=== PATIENT | male | born 1970 | race Caucasian/White ===

== ENCOUNTER 2016-08-01 16:39 | Emergency (ER) | payer OTHER ==
[~2016-08-01] VITALS: Ht 172.7 cm; Wt 100.0 kg
[2016-08-01 16:42] VITALS: BP 121/61; PULSE 71; RESP 15; TEMP 98.2; O2SAT 98
[2016-08-01] MEDS ORDERED: TRAZ100T4 PO (16:59)
[2016-08-01] MEDS ORDERED: DIAZ2TAB PO (16:59)
[2016-08-01] MEDS ORDERED: LISI10TA3 PO (16:59)
[2016-08-01] MEDS ORDERED: ISOS20TA PO (16:59)
[2016-08-01] MEDS ORDERED: METO50TA11 PO (16:59)
[2016-08-01] MEDS ORDERED: GABA300C5 PO (16:59)
[2016-08-01] MEDS ORDERED: QUET1TAB10 PO (16:59)
[2016-08-01] MEDS ORDERED: ATOR1TAB18 PO (16:59)
[2016-08-01] MEDS ORDERED: ZONI100C2 PO (16:59)
[2016-08-01] MEDS ORDERED: PANT40TA3 PO (16:59)
--- NOTE | 2016-08-01 17:56 | PD ---
HPI Chief Complaint: Headache Time Seen by Provider: 17:47 Travel History International Travel<30 days: No Contact w/Intl Traveler<30days: No Traveled to known affect area: No History of Present Illness HPI This patient complains of headache. Headache is a pressure that starts in the right oriental orthodox area and radiates toward the left side. No head injury. No thunderclap onset. Duration is 4 days. He denies any blood thinners or fever or neurologic complaint other than headache. Severity is moderate. No alleviating factors. PFSH Past Medical History Myocardial Infarction: Yes Seizures: Yes Tetanus Vaccination: < 5 Years Past Surgical History Pacemaker: Yes (DEFIB) Social History Alcohol Use: Yes Tobacco Use: Yes Substance Use: No Allergies-Medications (Allergen,Severity, Reaction): Coded Allergies: Codeine (Verified Allergy, Severe, RASH, 08/01/16) Ibuprofen (Verified Allergy, Severe, RASH, 08/01/16) Warfarin (Verified Allergy, Severe, BLEEDING, 08/01/16) Uncoded Allergies: DEPRESSION MEDICATIONS (Adverse Reaction, Severe, VOMITING, 08/01/16) Reported Meds & Prescriptions Reported Meds & Active Scripts Active Reported Pantoprazole (Pantoprazole Sodium) 40 Mg Tab 40 Mg PO DAILY Lisinopril 10 Mg Tab 10 Mg PO DAILY Metoprolol Succinate ER 24 HR (Metoprolol Succinate) 50 Mg Tab 50 Mg PO DAILY Atorvastatin (Atorvastatin Calcium) 80 Mg Tab 80 Mg PO HS Isosorbide Mononitrate 20 Mg Tab 30 Mg PO DAILY Take 2 doses 7 hours apart. Gabapentin 300 Mg Cap 300 Mg PO QID Zonisamide 100 Mg Cap 100 Mg PO QID Quetiapine (Quetiapine Fumarate) 300 Mg Tab 300 Mg PO HS Trazodone (Trazodone HCl) 100 Mg Tab 100 Mg PO HS Diazepam 2 Mg Tab 2 Mg PO BID PRN Review of Systems General / Constitutional: No: Fever Eyes: No: Visual changes HENT: Positive: Headaches Cardiovascular: No: Chest Pain or Discomfort Respiratory: No: Shortness of Breath Gastrointestinal: No: Abdominal Pain Genitourinary: No: Dysuria Musculoskeletal: No: Pain Skin: No Rash Neurologic: Positive: Headache, No: Weakness Psychiatric: No: Depression Endocrine: No: Polydipsia Hematologic/Lymphatic: No: Easy Bruising Physical Exam Narrative GENERAL: Well-nourished, well-developed patient with right sided head pressure. SKIN: Focused skin assessment reveals no rash and nodules. Skin is Warm and dry. HEAD: Atraumatic. Normocephalic. No meningeal signs EYES: Pupils equal and round. No scleral icterus. No injection or drainage. ENT: No nasal bleeding or discharge. Mucous membranes pink and moist. NECK: Trachea midline. No JVD. CARDIOVASCULAR: Regular rate and rhythm. No murmur appreciated. RESPIRATORY: No accessory muscle use. Clear to auscultation. Breath sounds equal bilaterally. GASTROINTESTINAL: Abdomen soft, non-tender, nondistended. Hepatic and splenic margins not palpable. MUSCULOSKELETAL: No obvious deformities. No clubbing. No cyanosis. No edema. NEUROLOGICAL: Awake and alert. No obvious cranial nerve deficits. Motor grossly within normal limits. Normal speech. PSYCHIATRIC: Appropriate mood and affect; insight and judgment normal. Data Data Last Documented VS Vital Signs Date Time Temp Pulse Resp B/P Pulse Ox O2 Delivery O2 Flow Rate FiO2 08/01/16 16:42 98.2 71 15 121/61 98 Orders Oxycodone-Acetamin 5-325 Mg (Percocet (08/01/16 18:00) Ct Brain W/O Iv Contrast(Rout) (08/01/16 ) [facility] Medical Decision Making Medical Screen Exam Complete: Yes Emergency Medical Condition: Yes Medical Record Reviewed: Yes Differential Diagnosis Differential diagnosis includes migraine, tension headache, cluster headache, meningitis. Narrative Course I have reviewed the patient's electronic medical record. Patient is is neurologically intact without meningeal signs. Presentation not consistent with subarachnoid hemorrhage. Brain CT is negative Gave him 2 pain pills Patient will call his primary physician Thursday for follow-up. I wrote him some Fioricet for symptom relief. Diagnosis Primary Impression: Headache Qualified Code: R51 - Acute nonintractable headache, unspecified headache type Additional Instructions: The patient was advised to follow up with their physician and return if they worsen. Med/Other Pt SpecificInfo: Prescription(s) given Scripts Bfttfktbrj-Qdlnuemmwwbey-Qqusqmhx (Fioricet)50-300-40 Mg Cap1 Cap PO Q4H PRN ( HEADACHE) #20 CAP Ref 0 Prov:Serge Oshea MD 08/01/16 Disposition: DISCHARGE HOME Condition: Stable Serge Oshea MD Aug 01, 2016 17:56
[2016-08-01] MEDS ORDERED: oxyCODONE/ACETAMINOPHEN 5 MG/325 MG TAB PO ONE (18:00)
--- NOTE | 2016-08-01 19:51 | RADRPT ---
EXAM DATE/TIME: 08/01/2016 19:40 [facility] COMPARISON: No previous studies available for comparison. INDICATIONS : Cephalgia; right latter day for three days. RADIATION DOSE: 54.70 CTDIvol (mGy) MEDICAL HISTORY : Seizures. SURGICAL HISTORY : Pacemaker. ENCOUNTER: Initial ACUITY: 1 day PAIN SCALE: 9/10 LOCATION: Right cranial TECHNIQUE: Multiple contiguous axial images were obtained of the head. Using automated exposure control and adj ustment of the mA and/or kV according to patient size, radiation dose was kept as low as reasonably a chievable to obtain optimal diagnostic quality images. FINDINGS: CEREBRUM: The ventricles are normal for age. No evidence of midline shift, mass lesion, hemorrhage or acute in farction. Cavum septum pellucidum. No extra-axial fluid collections are seen. POSTERIOR FOSSA: The cerebellum and brainstem are intact. The 4th ventricle is midline. The cerebellopontine angle i s unremarkable. EXTRACRANIAL: The visualized portion of the orbits is intact. SKULL: The calvaria is intact. No evidence of skull fracture. CONCLUSION: No acute intracranial disease. Ion Vicente MD on August 01, 2016 at 19:49 Board Certified Radiologist. This report was verified electronically.
[2016-08-01] MEDS ORDERED: BUTA1CAP PO (20:33)
== END 2016-08-01 20:43 | disposition home or self-care (01) ==
LOC: NEPD 16:39
DX: R51 Headache (principal)
CPT/HCPCS: 70450

== ENCOUNTER 2016-10-24 06:29 | Day surgery (SDC) | payer OTHER ==
[~2016-10-24] VITALS: Ht 172.7 cm; Wt 100.5 kg
[~2016-10-24 06:29] MED LIST: ATOR1TAB18 PO; BUTA1CAP PO; DIAZ2TAB PO; GABA300C5 PO; ISOS20TA PO; LISI10TA3 PO; METO50TA11 PO; PANT40TA3 PO; QUET1TAB10 PO; TRAZ100T4 PO; ZONI100C2 PO
[2016-10-24] MEDS ORDERED: NS 1000P @30 MLS/HR (KVO) IV SCH (07:00)
[2016-10-24 07:22] VITALS: BP 137/83; PULSE 66; RESP 17; TEMP 97.9; O2SAT 95
[2016-10-24] MEDS ORDERED: diphenhydrAMINE HCL 50 MG CAP PO SCH (07:30)
[2016-10-24] MEDS ORDERED: ASPI81CH37 CHEW (07:31)
[2016-10-24 07:35] LABS: AUTOMATED NEUTROPHIL # 4.9 TH/MM3 (1.8-7.7); BASOPHIL # 0.1 TH/MM3 (0-0.2); BASOPHIL % 0.6 % (0.0-2.0); EOSINOPHIL # 0.2 TH/MM3 (0-0.4); EOSINOPHIL % 2.6 % (0.0-4.0); HEMATOCRIT 44.5 % (39.0-51.0); HEMO FLAGS DIFF FINAL; LYMPH % 31.7 % (9.0-44.0); LYMPHOCYTE # 2.8 TH/MM3 (1.0-4.8); MEAN CELL VOLUME 94.7 FL (80.0-100.0); MEAN CORPUSCULAR HGB CONC 32.7 % (32.0-36.0); MONO % 9.4 % (0.0-8.0); NEUT % 55.7 % (16.0-70.0); PLATELET COUNT 204 TH/MM3 (150-450); RED CELL DISTRIBUTION WIDTH 14.6 % (11.6-17.2); WHITE BLOOD COUNT 8.7 TH/MM3 (4.0-11.0)
[2016-10-24] MEDS ORDERED: PRIM50TA5 PO (07:35)
[2016-10-24] MEDS ORDERED: TYLE325T PO (07:35)
[2016-10-24] MEDS ORDERED: GABA800T PO (07:35)
[2016-10-24] MEDS ORDERED: ALBUAER3 INH (07:35)
[2016-10-24] MEDS ORDERED: RANO500 PO (07:35)
[2016-10-24] MEDS ORDERED: RANI150T PO (07:35)
[2016-10-24] MEDS ORDERED: TRAZ100T6 PO (07:35)
[2016-10-24] MEDS ORDERED: NITR0.4S SL (07:35)
[2016-10-24 07:48] LABS: APTT (PATIENT) 26.9 SEC (24.3-30.1); INTERNATIONAL NORMALIZED RATIO 0.9 RATIO; PROTHROMBIN TIME - PATIENT 10.2 SEC (9.8-11.6)
[2016-10-24 07:54] LABS: BICARBONATE 21.2 MEQ/L (21.0-32.0); POTASSIUM 3.2 MEQ/L (3.5-5.1)
[2016-10-24] MEDS ORDERED: HEPARIN-NS/PF INJ 500 ML ONE (08:29)
[2016-10-24] MEDS ORDERED: MIDAZOLAM HCL 2 MG/2 ML VIAL ONE ×2 (08:29→08:41)
[2016-10-24] MEDS ORDERED: IOHEXOL 350 MG/ML 100 ML BTL (for Cath Lab) OTHER ONE (09:00)
--- NOTE | 2016-10-24 09:14 | CATHPROC ---
[employer] HIS Report Study Information Study Number Admission Scheduled Start Study Start [id number] Oct 24 2016 6:29AM 10/24/2016 Oct 24 2016 8:13AM Study Type [place] Service Left/Possible PCI Cardiac Catheterization Admit Source Facility Department Other [facility] - [facility] Driver Physician and Clinical Staff Initial Audie Suresh Screen Tacker Farhana Suarez,RN Recorder Carolina Estrella RCIS TECH2 Scrub Jesse Majano RCIS(BS) Procedures Performed Procedure Location (Site) Vessel Name Coronary Angiograms LCA Left Coronary Coronary Angiograms RCA Right Coronary LV Gram-hand inj. LV LV Ventricle Equipment Time Donor Relations Coordinator Description Size Mfg Part Number Used/Scraped TRANSDUCER, TRUWAVE [id number] 08:15 ZAVALA SUAREZ * Used W/STOCKCOCK *[id number] 08:58 [employer] MEDICAL VASCADE, FR5 CLOSURE SYSTEM FR 5 Used *[id number]- INTRODUCER SET, 08:15 [employer] FR 5 SC-NT-U-SST Used MICROPUNCTURE, STIFFENED *[id number] *[id number] *[id number] 08:15 [employer] INDUSTRIES PACK, CCL CUSTOM * Used *[id number] 08:15 Impliant WIRE, 3MMJ .035 180CM 180CM Used *[id number] 08:15 NAMIC MANIFOLD, 4 PORT * Used *[id number] 08:15 [employer]ED OMNIPAQUE, 350 MG, 150ML 150ML [id number] Used [id number] 08:15 [employer] MEDICAL BLANKET,WARM AIR CCL * Used *[id number] 08:15 TERUMO MEDICAL SHEATH, FR5 TERUMO (10CM) FR 5 [id number] Used Equipment Model, Serial, Lot Number and Expiration Data Description Model Number Serial Number Lot Number Expiration Date VASCADE, FR5 CLOSURE SYSTEM [id number] 06-05-2018 History: Current Medications Medication Dosage/Unit Route Frequency Last Date/Time Taken ASA Statins (any) Imdur LISINOPRIL LOPRESSOR NTG SL History: Allergies Allergy Reaction Codeine RASH Ibuprofen RASH Warfarin BLEEDING DEPRESSION MEDICATIONS VOMITING History: Risk Factors Hypertension Dyslipidemia Previous CO Yes Yes Yes Prior Valve Prior PCI Prior CABG Surgery No Yes No Cerebrovascular Peripheral Artery Chronic Lung On Dialysis Diabetes Disease Disease Disease No No No Yes No History: Symptoms/Diagnosis Selection Items Chest pain History: CV Disease Selection Items Cardiomyopathy ischemic Known CAD CO History: Stress Tests Stress or Imaging Studies Performed Yes Standard Exercise Stress Test No Stress Echo No Stress Test SPECT Stress Test SPECT Result Stress Test SPECT Ischemia Risk/Extent Yes Positive Intermediate Stress Test CMR No Cardiac CTA Coronary Calcium Score No No History: Other Disease Selection Items CAD Depression Gerd History: Other Current Smoker Method Packs a Day Years Used Pack Years Yes Cigarettes 1 35 35 Labs Hgb (g/dl) Hct (%) WBC (l/cumm) Platelets (thousands) 11.60-17.00 35.00-51.00 4.00-11.00 150.00-450.00 14.5 44.5 8.7 204 Glucose (mg/dl) BUN (mg/dl) Creatinine (mg/dl) BUN:Creatinine (1:x) 74.00-106.00 7.00-18.00 0.50-1.30 10.00-20.00 101 13 1.0 13 Na (meq/l) K (meq/l) 136.00-145.00 3.50-5.10 140 3.2 INR (PTT:PT) 0.90-1.10 0.9 Medication Medication Total Dose (Bolus/Oral) Medication Total Dosage/Unit 1% XYLOCAINE 20 mL FENTANYL 75 mcg VERSED 3 mg Medications (Bolus/Oral) Medication Time Given Dosage/Unit Administered By Reason VERSED 10/24/2016 8:38:11 AM 2 mg Farhana Suarez 2 mg VERSED given in lab by Farhana Suarez RN in Left Wrist via Peripheral IV. Ordered by Audie Oliveros. FENTANYL 10/24/2016 8:39:30 AM 50 mcg Farhana Suarez 50 mcg FENTANYL given in lab by Farhana Suarez, KATYA in Left Wrist via Peripheral IV. Ordered by Audie Lackey. 1% XYLOCAINE 10/24/2016 8:40:52 AM 20 mL Audie Giraldo 20 mL 1% XYLOCAINE given in lab by Audie Giraldo in Right Groin via Subcutaneous. Ordered by Audie Larios. VERSED 10/24/2016 8:44:20 AM 1 mg Farhana Suarez 1 mg VERSED given in lab by Farhana Suarez RN in Left Wrist via Peripheral IV. Ordered by Audie Oliveros. FENTANYL 10/24/2016 8:45:42 AM 25 mcg Farhana Suarez 25 mcg FENTANYL given in lab by Farhana Suarez RN in Left Wrist via Peripheral IV. Ordered by Audie Lackey. Medication (Drip) Medication Time Given Dosage/Unit Concentration/Unit Diluent (ml) Solution IV Solutions 10/24/2016 8:21:39 AM 0 mL (IV) 500 NaCl .9 IV Solutions given in lab by Farhana Suarez RN in Left Wrist via Peripheral IV. Pump/Drip Flow = 20 ml/hr using NaCl .9. Initial Case Assessment Cardiovascular HR Rhythm NIBP Chest Pain 64 sr 121/75 0 Circulatory - Right Pulses Dorsalis Pedis Femoral 2 1 Scale (0,1,2,3,4,d) Circulatory - Left Pulses Dorsalis Pedis Femoral 2 1 Scale (0,1,2,3,4,d) Neurological State Oriented to time-place- Alert Moves all extremities person Respiration - General Respiration Rate SpO2 (%) (B/min) 16 98 Final Case Assessment Cardiovascular HR Rhythm NIBP Chest Pain 86 SR 118/78 0 Circulatory - Right Pulses Dorsalis Pedis Femoral 2 1 Scale (0,1,2,3,4,d) Circulatory - Left Pulses Dorsalis Pedis Femoral 2 1 Scale (0,1,2,3,4,d) Neurological State Oriented to time-place- Alert Moves all extremities person Respiration - General Respiration Rate SpO2 (%) (B/min) 13 98 Chronological Log Time Study Chronological Log 8:21:28 Patient arrived via Bed. 8:21:29 Patient Name, D.O.B, / Armband Verified By R.N. 8:21:30 Consent signed by the physician and the patient and verified by the [employer] staff. 8:21:30 Pre-op and post- op instructions given; patient acknowledges understanding of instructions. 8:21:31 Verbal Stimulation=2 Physical Stimulation=2 Airway=2 Respiration=2 TOTAL=8. (0=absent, 1=abernathy ited, 2=present) 8:21:31 Presedation assessment performed by L[employer] St[employer] Driver RN. 8:21:33 Patient has been NPO for More than 6Hrs. 8:21:34 Skin Breakdown-none 8:21:35 Patient Warmer Placed on the Table. 8:21:36 Nacho Prominences Protected 8:21:38 A # 20 IV was noted in the Wrist (left). Grade = patent IV Solutions given in lab by Farhana Suarez RN in Left Wrist via Peripheral IV. Pump/Drip Fl ow = 20 ml/hr using 8:21:39 NaCl .9. 8:21:39 History and physical on the chart or being dictated. Vitals capture started with the following parameters, Patient=Adult, Interval=5 min, Initial Pre kueth=915 mmHg, 8:25:20 Deflation Rate=5 mmHg 8:26:05 HR=60 bpm, GUBY=626/75 mmhg, SpO2=99.0 %, Resp=13 B/min, Pain=0, Guzman=2 Assessment: Initial Case, HR=64 BPM, Rhythm=sr, RTXL=605/75 mmhg, Chest Pain=0 Right Pulses: Loc Ped=2, Femoral=1 8:27:31 Left Pulses: Loc Ped=2, Femoral=1 Neurological: State=Alert, Ox3, MIRANDA Respiration: Resp=16 B/min, SpO2=98 % 8:27:48 Reference ECG taken 8:30:56 HR=62 bpm, GIYF=238/75 mmhg, SpO2=97.0 %, Resp=12 B/min 8:35:32 Bilateral groins prepped with 2% chlorhexidine, and with a 3 min. waiting time. 8:35:57 HR=76 bpm, DJIQ=894/72 mmhg, SpO2=99.0 %, Resp=13 B/min, Pain=0, Guzman=2 8:36:03 MD arrived. 8:38:11 2 mg VERSED given in lab by Farhana Suarez, RN in Left Wrist via Peripheral IV. Ordered Aniyah Rodriguezro. 50 mcg FENTANYL given in lab by Farhana Suarez, KATYA in Left Wrist via Peripheral IV. Ordered hemanth Giraldo, 8:39:30 Audie. Time Out. Correct patient, correct procedure,correct physician, power injector loaded with contr ast with surgical team 8:40:09 present. Time Out Concurred by MD and individual staff in procedure 8:40:42 Pressure channel 1 zeroed. 8:40:49 Case Start 20 mL 1% XYLOCAINE given in lab by Audie Giraldo in Right Groin via Subcutaneous. Ordered by Enzo, 8:40:52 Audie. 8:40:56 HR=75 bpm, SCXV=278/76 mmhg, SpO2=97.0 %, Resp=13 B/min, Pain=0, Guzman=2 8:43:14 Access site was Right Femoral Artery. A INTRODUCER SET, MICROPUNCTURE, STIFFENED FR 5 was advanced into the Fem Art (right) using the 8:43:31 Percutaneous technique. A SHEATH, FR5 TERUMO (10CM) FR 5 was exchanged in the Fem Art (right). This was necessary in ord er to 8:43:40 accomodate a larger catheter. 8:44:01 An injection in the Fem Art (right) was made through the SHEATH, FR5 TERUMO (10CM) FR 5. 8:44:20 1 mg VERSED given in lab by Farhana Suarez RN in Left Wrist via Peripheral IV. Ordered b y Audie Giraldo. A JR 4.0 INFINITI CATHETER FR 5 was advanced over a wire. OMNIPAQUE, 350 MG, 150ML 150ML was use d for 8:45:10 injections. 25 mcg FENTANYL given in lab by Farhana Suarez, RN in Left Wrist via Peripheral IV. Ordered by Enzo, 8:45:42 Audie. Recorded Pressure: LV, HR=80, Condition=Condition 1 8:45:52 (Left Ventricle) LV 116/6/12 8:45:59 HR=79 bpm, OYZY=301/72 mmhg, SpO2=95.0 %, Resp=14 B/min 8:46:12 The LV was manually injected with 5 cc's and visualized. OMNIPAQUE, 350 MG, 150ML 150ML us ed. Recorded Pressure: LV, Ao, HR=67, Condition=Condition 1 8:46:32 (Left Ventricle) LV 143/9/16, (Aorta) Ao 134/80/103 8:47:16 The RCA was injected and visualized at various angles. OMNIPAQUE, 350 MG, 150ML 150ML use d. After removing the current catheter a JL 4.0 INFINITI CATHETER FR 5 was advanced over a WIRE, 3MMJ .035 180CM 8:48:18 180CM. 8:50:02 The LCA was injected and visualized at various angles. OMNIPAQUE, 350 MG, 150ML 150ML use d. 8:50:58 HR=83 bpm, NUTB=176/64 mmhg, SpO2=96.0 %, Resp=12 B/min 8:55:57 HR=91 bpm, SBIB=593/58 mmhg, SpO2=98.0 %, Resp=12 B/min 8:56:00 Catheter was removed 8:57:15 VASCADE, FR5 CLOSURE SYSTEM FR 5 placement in the Fem Art (right) 8:59:27 Case End 8:59:31 Sterile dressing applied to site 8:59:32 No case complications noted. 8:59:33 Cine recording checked. 9:00:56 HR=86 bpm, RZGF=512/78 mmhg, SpO2=98.0 %, Resp=13 B/min Assessment: Final Case, HR=86 BPM, Rhythm=SR, YDRF=089/78 mmhg, Chest Pain=0 Right Pulses: Loc Ped=2, Femoral=1 9:04:15 Left Pulses: Loc Ped=2, Femoral=1 Neurological: State=Alert, Ox3, MIRANDA Respiration: Resp=13 B/min, SpO2=98 % 9:05:20 Patient moved to BED 9:05:28 Bedside Report will be given. 9:06:48 Patient transported to DOCU End Study - Contrast Media Used In Study Contrast Total Opened (mL) Total Used (mL) Total Wasted (mL) Omnipaque 50 50 0 End Study - Maximum Contrast Load Max Contrast Load (mL) 502.5 End Study - Radiation Exposure Fluoro Time (minutes) 2.9 End Study - Sheaths Sheaths Pulled By Sheath Hold Time (min) Audie Giraldo End Study - Patient Disposition Complications Transferred To No Telemetry Bed
[2016-10-24] MEDS ORDERED: ONDANSETRON HCL 4 MG/2 ML VIAL IV PRN (09:15)
[2016-10-24] MEDS ORDERED: ATROPINE SULFATE 1 MG/ML VIAL IV PRN (09:15)
--- NOTE | 2016-10-24 09:48 | MA ---
cc: RENAY SERNA DATE 10/24/2016 DATE OF 1970 PROCEDURE PERFORMED 1. Left heart catheterization 2. Selective right and left coronary angiography. 3. Left ventriculogram 4. Selective right common femoral artery angiography. INDICATION Angina, known coronary artery disease. Positive stress test. APPROACH Right transfemoral PROCEDURE DESCRIPTION Consent signed, the patient was prepped and draped in a sterile fashion using 1 % lidocaine for local anesthesia. A micropuncture kit, a 5-Yi sheath was inserted into the right common femoral artery. The right common femoral artery angiography was performed to confirm the position of the sheath. Then selective right and left coronary angiography was performed with JR-4 and a JL- 4 diagnostic catheters. Angiography was taken in multiple views. The JR-4 diagnostic catheter was introduced into the ventricle over a wire. This was followed by pressure recordings, left ventriculogram on pullback. The patient tolerated the procedure well without complications. ESTIMATED BLOOD LOSS Less than 30 cc. TOTAL CONTRAST 50 cc. The right groin access site was closed with a Vascade closure device. RESULTS LEFT VENTRICLE The left ventricular pressure was 143/90 with an LVEDP of 16. The aortic pressure was 134/80 with a mean of 103. There was no gradient upon pullback from the left ventricle to the aorta. LEFT VENTRICULOGRAM Left ventriculogram revealed hypokinesis of the anterior wall with an estimated ejection fraction of 40%. The patient has an AICD. ANGIOGRAPHY 1. The right coronary artery is a dominant vessel giving off the PDA. It has nonobstructive coronary artery disease and is giving collaterals from its prominent RV branch, epicardial vessels to the LAD. Also the PDA is giving collaterals to the septal to the LAD. 2. Left main is patent with nonobstructive coronary artery disease. 3. The LAD is 100% occluded in its proximal portion. There appears to be a long stent which is 100% occluded. There is no stump visible at the proximal end of the ostial LAD. 4. There is a ramus vessel of a significant size which is patent with CAPRI-III flow and nonobstructive coronary artery disease. There is a ramus vessel giving distal portions of collaterals also to the LAD. 5. The left circumflex artery is very small, patent with nonobstructive coronary artery disease, has a prominent OM vessel, OM1 which is small and patent. RECOMMENDATIONS The patient has a chronic total occlusion of the LAD which is feeding by collaterals that come from the right coronary artery as well as from the ramus vessel. This MANAGER SUPPORT is known to be occluded for a long time, however he still is having chest discomfort. We will consult CT surgery to evaluate for possible DOE to the LAD versus high-risk MANAGER SUPPORT. In the meantime, continue aggressive medical management for coronary artery disease. MD JANELLE Crowley/WIN /9:09 AM /9:33 AM [employer]TD[employer]ooter
[2016-10-24 13:31] LABS: ALT (GPT) 62 U/L (12-78); AST (GOT) 43 U/L (15-37)
[2016-10-24 13:33] LABS: ALKALINE PHOSPHATASE 86 U/L (45-117); INDIRECT BILIRUBIN 0.3 MG/DL (0.0-0.8); TOTAL BILIRUBIN ADULT 0.4 MG/DL (0.2-1.0)
--- NOTE | 2016-10-24 14:23 | RADRPT ---
EXAM DATE/TIME: 10/24/2016 13:22 [facility] COMPARISON: No previous studies available for comparison. INDICATIONS : Pre-op CABG. MEDICAL HISTORY : Myocardial infarction. Seizure. Sleep apnea. SURGICAL HISTORY : Cardiac stents. Pacemaker. ENCOUNTER: Initial ACUITY: 1 day PAIN SCORE: 0/10 LOCATION: Bilateral legs. TECHNIQUE: Venous ultrasound of the left and right leg was performed from the inguinal ligament to the proximal calf. Real-time, color Doppler and spectral tracing, compression and augmentation techniques were us ed. FINDINGS: RIGHT LEG: There is normal compressibility of the deep venous system from the inguinal region to the proximal ca lf. No echogenic clot is seen in the lumen of the common femoral, femoral, popliteal, and posterior tibial veins. There is a normal response of the venous system to proximal and distal augmentation an d respiration. LEFT LEG: There is normal compressibility of the deep venous system from the inguinal region to the proximal ca lf. No echogenic clot is seen in the lumen of the common femoral, femoral, popliteal, and posterior tibial veins. There is a normal response of the venous system to proximal and distal augmentation an d respiration. CONCLUSION: Normal examination. Josselyn Watts MD on October 24, 2016 at 14:22 Board Certified Radiologist. This report was verified electronically.
--- NOTE | 2016-10-24 14:24 | RADRPT ---
EXAM DATE/TIME: 10/24/2016 13:31 [facility] COMPARISON: No previous studies available for comparison. INDICATIONS : Pre-op CABG. MEDICAL HISTORY : Myocardial infarction. Seizure. Sleep apnea. SURGICAL HISTORY : Cardiac stents. Pacemaker. ENCOUNTER: Initial ACUITY: 1 day PAIN SCORE: 0/10 LOCATION: Bilateral legs. GREATER SAPHENOUS VEIN THIGH: PROXIMAL: Right 7 mm Left 4 mm MID: Right 4 mm Left 4 mm DISTAL: Right 3 mm Left 4 mm CALF: PROXIMAL: Right 2 mm Left 2 mm MID: Right 2 mm Left 2 mm DISTAL: Right Non-visualized Left 1 mm FINDINGS: The venous system of the lower extremities are patent by color Doppler imaging. Measurements of the leg veins (in mm) are listed above. CONCLUSION: Normal examination. Josselyn Watts MD on October 24, 2016 at 14:22 Board Certified Radiologist. This report was verified electronically.
--- NOTE | 2016-10-24 14:43 | RADRPT ---
EXAM DATE/TIME: 10/24/2016 13:05 [facility] COMPARISON: No previous studies available for comparison. INDICATIONS : Pre-op CABG. MEDICAL HISTORY : Myocardial infarction. Seizure. Sleep apnea. SURGICAL HISTORY : Cardiac stents. Pacemaker. ENCOUNTER: Initial ACUITY: 1 day PAIN SCORE: 0/10 LOCATION: Bilateral neck PEAK SYSTOLIC VELOCITIES (cm/sec): ICA/CCA RATIO: Right: 1.2 Left: 1.0 ICA: Right: 116 Left: 102 CCA: Right: 98 Left: 135 ECA: Right: 115 Left: 124 VERTEBRAL: Right: 59 antegrade Left: 66 antegrade Elevated flow velocities and ICA/CCA ratios have been found to correlate with increased degrees of vessel stenosis, calculated as percentage of diameter relative to a normal segment of distal ICA/CCA FINDINGS: RIGHT CAROTID: No significant stenosis is visualized. The waveforms are within normal limits. LEFT CAROTID: No significant stenosis is visualized. The waveforms are within normal limits. VERTEBRAL ARTERIES: Antegrade flow is seen in both vertebral arteries. MISCELLANEOUS: None. CONCLUSION: 1. No significant flow-limiting stenosis. 2. Antegrade bilateral vertebral artery flow. Connor Bowen MD on October 24, 2016 at 14:38 Board Certified Radiologist. This report was verified electronically.
--- NOTE | 2016-10-24 14:46 | RADRPT ---
EXAM DATE/TIME: 10/24/2016 14:32 [facility] COMPARISON: No previous studies available for comparison. INDICATIONS : Evaluate for pneumonia, pneumothorax, or communicable disease. Pre-op bypass surgery MEDICAL HISTORY : None. SURGICAL HISTORY : Pacemaker. ENCOUNTER: Initial ACUITY: 1 day PAIN SCORE: 0/10 LOCATION: Bilateral chest FINDINGS: The heart is at the upper limits of normal in size. The lungs are clear. There is a transvenous pacer present. CONCLUSION: 1. No acute cardiopulmonary findings. Jared Vieira MD on October 24, 2016 at 14:44 Board Certified Radiologist. This report was verified electronically.
--- NOTE | 2016-10-24 16:15 | PD.CAR.PN ---
CVT Progress Note Subjective/Hospital Course: sts data discussed with pt RISK SCORES About the STS Risk Calculator Procedure: CAB Only Risk of Mortality: 0.263% Morbidity or Mortality: 4.692% Long Length of Stay: 1.046% Short Length of Stay: 82.195% Permanent Stroke: 0.159% Prolonged Ventilation: 2.947% DSW Infection: 0.145% Renal Failure: 0.637% Reoperation: 2.274% Objective: Vital Signs Date Time Temp Pulse Resp B/P Pulse Ox O2 Delivery O2 Flow Rate FiO2 10/24/16 09:15 97 Room Air 10/24/16 07:22 97.9 66 17 137/83 95 Labs: Laboratory Tests Test 10/24/16 07:05 White Blood Count 8.7 TH/MM3 (4.0-11.0) Red Blood Count 4.70 MIL/MM3 (4.50-5.90) Hemoglobin 14.5 GM/DL (13.0-17.0) Hematocrit 44.5 % (39.0-51.0) Mean Corpuscular Volume 94.7 FL (80.0-100.0) Mean Corpuscular Hemoglobin 31.0 PG (27.0-34.0) Mean Corpuscular Hemoglobin 32.7 % Concent (32.0-36.0) Red Cell Distribution Width 14.6 % (11.6-17.2) Platelet Count 204 TH/MM3 (150-450) Mean Platelet Volume 8.1 FL (7.0-11.0) Neutrophils (%) (Auto) 55.7 % (16.0-70.0) Lymphocytes (%) (Auto) 31.7 % (9.0-44.0) Monocytes (%) (Auto) 9.4 % (0.0-8.0) Eosinophils (%) (Auto) 2.6 % (0.0-4.0) Basophils (%) (Auto) 0.6 % (0.0-2.0) Neutrophils # (Auto) 4.9 TH/MM3 (1.8-7.7) Lymphocytes # (Auto) 2.8 TH/MM3 (1.0-4.8) Monocytes # (Auto) 0.8 TH/MM3 (0-0.9) Eosinophils # (Auto) 0.2 TH/MM3 (0-0.4) Basophils # (Auto) 0.1 TH/MM3 (0-0.2) CBC Comment DIFF FINAL Differential Comment Prothrombin Time 10.2 SEC (9.8-11.6) Prothromb Time International 0.9 RATIO Ratio Activated Partial 26.9 SEC Thromboplast Time (24.3-30.1) Sodium Level 140 MEQ/L (136-145) Potassium Level 3.2 MEQ/L (3.5-5.1) Chloride Level 111 MEQ/L (98-107) Carbon Dioxide Level 21.2 MEQ/L (21.0-32.0) Anion Gap 8 MEQ/L (5-15) Blood Urea Nitrogen 13 MG/DL (7-18) Creatinine 1.03 MG/DL (0.60-1.30) Estimat Glomerular Filtration 78 ML/MIN (>89) Rate Random Glucose 101 MG/DL (74-106) Calcium Level 8.8 MG/DL (8.5-10.1) Total Bilirubin 0.4 MG/DL (0.2-1.0) Direct Bilirubin 0.1 MG/DL (0.0-0.2) Indirect Bilirubin 0.3 MG/DL (0.0-0.8) Aspartate Amino Transf 43 U/L (15-37) (AST/SGOT) Alanine Aminotransferase 62 U/L (12-78) (ALT/SGPT) Alkaline Phosphatase 86 U/L (45-117) Total Protein 6.7 GM/DL (6.4-8.2) Albumin 3.6 GM/DL (3.4-5.0) Result Diagram: 10/24/16 0705 10/24/16 0705 Orin Laws Oct 24, 2016 16:14
[2016-10-24 16:50] LABS: HEMOGLOBIN A1a 1.1 %; HEMOGLOBIN A1b 1.8 %; HEMOGLOBIN Ao 84.7 %
[2016-10-24 17:48] LABS: BLOOD, URINE SMALL (NEG); COMMENT (UR) CULT NOT INDICATED; CULTURE IF INDICATED CULT NOT INDICATED; GLUCOSE,URINE NEG (NEG); KETONE, URINE NEG (NEG); NITRITE,URINE NEG (NEG); SQUAMOUS EPITHELIAL CELL URINE <1 /hpf (0-5); URINE COLOR YELLOW (YELLW/STRAW)
[2016-10-24] MEDS ORDERED: SODIUM CHLORIDE 0.9% FLUSH 10 ML FLUSH IV FLUSH SCH (21:00)
--- NOTE | 2016-10-25 10:44 | EKG ---
Date Performed: 10/24/2016 Time Performed: 08:00:08 PTAGE: 45 years EKG: Sinus rhythm . Possible septal infarct - age undetermined Abnormal ECG NO PREVIOUS TRACING DOCTOR: Evelio Mills Interpretating Date/Time 10/25/2016 10:43:10
--- NOTE | 2016-10-27 08:41 | MB ---
cc: YESY QUINONES MD DATE OF CONSULTATION 10/24/16 DATE OF 1970 HISTORY OF PRESENT ILLNESS A 45-year-old male followed by Dr. Alejandro Pisano and also Dr. Audie Montoya with history of coronary artery disease, prior AR x3, with prior PCI and stent, ischemic cardiomyopathy with AICD [employer] device approximately 3 years ago. The patient had his initial AR when he lived in [place], [place] at the [facility]. Has been complaining of some frequent episodes of mild to moderate chest discomfort started a few weeks ago, lasting minutes, sharp in nature, triggered by exertion. Denies having any shortness of breath, palpitations. No syncope. No presyncope. No edema and no weight gain, weight loss. No paroxysmal nocturnal dyspnea. His risk factors include coronary artery disease, hypertension. PAST MEDICAL HISTORY Includes ischemic cardiomyopathy. EF is now measuring at 61%. Anxiety, asthma, chronic kidney disease, depression, erectile dysfunction, gastroesophageal reflux disease, history of intractable epilepsy, seizure disorder. Last seizure was in July. He is followed by Dr. Sanon in [facility] for his levels. Nicotine dependence. Obstructive sleep apnea, occasionally uses a C-PAP machine. Post traumatic stress disorder. PAST SURGICAL HISTORY Surgeries include cardiac defibrillator placement. Right knee surgery. He has had some pins and surgery to his left wrist after an injury from after a seizure. ALLERGIES INCLUDE CODEINE, GLUTEN, IBUPROFEN. COULD NOT TOLERATE COUMADIN BECAUSE HE DEVELOPED BLOOD IN HIS STOOL. MEDICATIONS Home medications include: 1. Aspirin 81 daily. 2. Atorvastatin 80. 3. Diazepam 2 milligrams q.8 hours. 4. Gabapentin 800 4 times a day. 5. Imdur 30 p.o. daily. 6. Lisinopril 10 daily. 7. Metoprolol 50 extended-release daily. 8. Nitrostat p.r.n. 9. Protonix daily. 10. Primidone 50 p.o. q. a.d. 11. ProAir inhaler. 12. Quetiapine 300 daily. 13. Ranexa 500 q. 12. 14. Zantac 150 as needed. 15. Trazodone 100 daily. 16. Zonisamide 100 p.o. three times a day. 17. Tylenol p.r.n. FAMILY HISTORY He is estranged from his father. Mother living,, relatively healthy. SOCIAL HISTORY The patient currently undergoing the process of a divorce, lives with his parents, has three children, disabled from his seizure disorder. Smoked for approximately 30 years. He quit 11 years ago for 5 years and smoked again for 5 years and quit two weeks ago. Smokes occasional marijuana. No alcohol. REVIEW OF SYSTEMS As above in the HPI. Other 12 systems unremarkable. PHYSICAL EXAMINATION VITAL SIGNS: Blood pressure with 130/80, heart rate 66, afebrile. Room air sat 97. GENERAL: Patient is awake, alert, no acute distress. HEENT: Head is normocephalic, atraumatic. Pupils equal and reactive to light. NECK: Supple. No JVD. HEART: Heart sounds S1-S2 regular rate and rhythm. No audible rubs, murmurs, gallops. LUNGS: Clear to auscultation. No wheezes, rales or rhonchi. ABDOMEN: Soft, flat, nontender. No masses or organomegaly. EXTREMITIES: No cyanosis, clubbing or edema. SKIN: He has got multiple tattoos to his upper extremities and to his chest and back. NEUROLOGIC: He is grossly oriented to person, place and time. LABORATORY DATA Lab work shows hemoglobin 14, hematocrit of 44, white cell count 8.7, platelet count 204, sodium 140, potassium 3.2, BUN of 13, creatinine 1.03, hemoglobin A1c pending. AST 43, ALT 62, INR 0.9. RADIOLOGICAL EXAMS Chest x-ray showed no acute process, transvenous AICD present. Carotid ultrasound no significant flow limiting stenosis. Lower extremity ultrasound was normal. EKG sinus rhythm with some poor R-wave progression. IMPRESSION 1. A 45-year-old male history of coronary artery disease, prior stent, underwent cardiac cath which showed a 100% proximal LAD, EF of 40%. Consultation for coronary artery bypass graft x1 to the LAD. 2. History of ischemic cardiomyopathy with AICD in place, Tonny Romero. 3. History of asthma. 4. History of nicotine dependence. 5. Obstructive sleep apnea. 6. History of intractable epilepsy and seizure disorder on current medications. PLAN At this time plan will be for coronary artery bypass grafting x1 to the LAD, using the DOE preferably on ThursdayNovember 05. Will hold his lisinopril. Continue all other medications. Further planning as per Dr. Yesy Quinones. Procedures, alternatives and risks have been discussed with the patient and will proceed on the . Dictated by SABRINA Toussaint Yesy Quinones SK/TRINA /4:22 PM /8:43 AM
--- NOTE | 2016-10-27 13:28 | RSPPFT ---
DATE OF PROCEDURE: 10/24/16 COMMENTS: The forced vital capacity shows a small reduction. The FEV1 is reduced. The FEV1/FVC ratio is normal. The FEF 25-75 is normal. IMPRESSION: This is consistent with mild restrictive lung disease.
== END 2016-10-24 15:40 | disposition home or self-care (01) ==
LOC: HDOC 06:29 → HDIC 06:30 → HDOC 15:40
PROVIDERS: ATTEND Radiology Vascular & Interventional Radiology
DX: I25.10 Atherosclerotic heart disease of native coronary artery without angina pectoris (principal); I25.82 Chronic total occlusion of coronary artery; I25.5 Ischemic cardiomyopathy; I25.2 Old myocardial infarction; N18.9 Chronic kidney disease, unspecified; K21.9 Gastro-esophageal reflux disease without esophagitis; E78.5 Hyperlipidemia, unspecified; G47.33 Obstructive sleep apnea (adult) (pediatric); G40.919 Epilepsy, unspecified, intractable, without status epilepticus; J45.909 Unspecified asthma, uncomplicated; R07.9 Chest pain, unspecified; F17.200 Nicotine dependence, unspecified, uncomplicated; Z95.810 Presence of automatic (implantable) cardiac defibrillator
CPT/HCPCS: 71020; 80048; 80076; 81001; 83036; 85025; 85610; 85730; 86850; 86900; 86901; 87641; 93005; 93458; 93880; 93970; 93998; 94010; C1760; C1769; C1893; G0269; J1644; J2250; J3010; J7030; Q0163; Q9967

== ENCOUNTER 2016-10-28 09:15 | Inpatient (IN) | payer OTHER, MEDICARE ==
[~2016-10-28] VITALS: Ht 172.7 cm; Wt 103.5 kg
[~2016-10-28 09:15] MED LIST changes: +ALBUAER3 INH; +ASPI81CH37 CHEW; -BUTA1CAP PO; -GABA300C5 PO; +GABA800T PO; +NITR0.4S SL; +PRIM50TA5 PO; +RANI150T PO; +RANO500 PO; -TRAZ100T4 PO; +TRAZ100T6 PO; +TYLE325T PO
[2016-11-05] VITALS (14 sets, daily range): BP systolic 105–144; BP diastolic 64–83; PULSE 70–81; RESP 10–18; TEMP 97.3–98.1; O2SAT 94–98
[2016-11-05] MEDS ORDERED: SODIUM BICARBONATE 8.4% INJ 50 MEQ/50 ML SYR IV ONE ×2 (05:00→07:17)
[2016-11-05] MEDS ORDERED: GLYCOPYRROLATE 0.2 MG/ML VIAL IV ONE (05:00)
[2016-11-05] MEDS ORDERED: EPINEPHrine HCL (1:1000) 30 MG/30 ML VIAL IV ONE (05:00)
[2016-11-05] MEDS ORDERED: CHLORHEXIDINE GLUCONATE 2 % 1 PACK (2 CLOTHS) TOPICAL PRN (05:45)
[2016-11-05] MEDS ORDERED: SODIUM CHLORIDE 0.9% FLUSH 10 ML FLUSH IV FLUSH PRN ×3 (05:45→11:15)
[2016-11-05] MEDS ORDERED: CHLORHEXIDINE GLUCONATE 4% SOLN 120 ML BTL TOPICAL SCH (05:45)
[2016-11-05] MEDS ORDERED: ceFAZolin 2 GM PREMIX 50 ML IV SCH (05:45)
[2016-11-05] MEDS ORDERED: CEFAZOLIN 500 MG in NS IRR BTL 500 ML IRRIGATION SCH (05:45)
[2016-11-05] MEDS ORDERED: INSULIN REGULAR 100 UNITS in NS 100 ML IV SCH (05:45)
[2016-11-05] MEDS ORDERED: LACTATED RINGER'S 1000 ML IV PRN (05:45)
[2016-11-05] MEDS ORDERED: POVIDONE IODINE 5% (ANTISEPSIS KIT) 4 APPLICATIONS EACH NARE PRN (05:45)
[2016-11-05] MEDS ORDERED: METOPROLOL TARTRATE 25 MG TAB PO PRN (05:45)
[2016-11-05] MEDS ORDERED: INSULIN HUMAN REGULAR 1,000 UNITS/10 ML VIAL SQ PRN (05:45)
[2016-11-05] MEDS ORDERED: METOPROLOL TARTRATE 25 MG TAB PO SCH (05:45)
[2016-11-05] MEDS ORDERED: SODIUM CHLORID 0.9% 500 ML IV PRN (05:45)
[2016-11-05] MEDS ORDERED: PAPAVERINE 60 MG-NITROGLYCERIN 100 MCG-DILTIAZEM 100 MG in NS 100 ML IRRIGATION SCH ×4 (05:45)
--- NOTE | 2016-11-05 06:25 | RADRPT ---
EXAM DATE/TIME: 11/05/2016 05:58 [facility] COMPARISON: CHEST PA & LAT, October 24, 2016, 14:32. INDICATIONS : Evaluate for pneumonia, pneumothorax and communciable disease. MEDICAL HISTORY : None. SURGICAL HISTORY : Pacemaker. ENCOUNTER: Initial ACUITY: 1 day PAIN SCORE: 0/10 LOCATION: Bilateral chest FINDINGS: Portable AP view of the chest demonstrates a normal-sized cardiac silhouette. No effusion, consolidat ion, or pneumothorax is visualized. The bones and soft tissues demonstrate no acute abnormality. Left chest wall cardiac pacing device/AICD remains present. CONCLUSION: No acute cardiopulmonary abnormality is identified. Feroz Franco MD on November 05, 2016 at 6:23 Board Certified Radiologist. This report was verified electronically.
[2016-11-05] MEDS ORDERED: ceFAZolin 2 GM PREMIX 50 ML ONE (07:08)
[2016-11-05] MEDS ORDERED: HEPARIN SODIUM - SQ 10,000 UNITS/ML VIAL ONE (07:08)
[2016-11-05] MEDS ORDERED: VANCOMYCIN HCL 1000 MG VIAL ONE (07:08)
[2016-11-05] MEDS ORDERED: AMINOCAPROIC ACID INJ 250 MG/ML 20 ML VIAL IV ONE ×2 (07:14→12:22)
[2016-11-05] MEDS ORDERED: ARTIFICIAL TEARS OPTH OINT 3.5 APPLIC/3.5 GM TUBO ONE (07:15)
[2016-11-05] MEDS ORDERED: PROPOFOL 1000 MG/100 ML BTL IV ONE (07:15)
[2016-11-05] MEDS ORDERED: NITROGLYCERIN 50 MG/DEXTROSE 5% SOLN 250 ML BTL IV ONE (07:16)
[2016-11-05] MEDS ORDERED: MAGNESIUM SULFATE 1000 MG/2 ML VIAL (PED) IV ONE (07:16)
[2016-11-05] MEDS ORDERED: HEPARIN SODIUM - SQ 10,000 UNITS/ML VIAL SQ ONE (07:16)
[2016-11-05] MEDS ORDERED: PROTAMINE SULFATE 250 MG/25 ML VIAL IV ONE (07:17)
[2016-11-05] MEDS ORDERED: VECURONIUM BROMIDE 10 MG VIAL IV ONE (07:17)
[2016-11-05] MEDS ORDERED: ceFAZolin INJ 1,000 MG VIAL IV ONE (07:55)
[2016-11-05] MEDS ORDERED: DOBUTamine PREMIX DRIP 250 ML IV SCH (11:01)
[2016-11-05] MEDS ORDERED: LACTATED RINGER'S 1000 ML INJ 500 ML IV PRN (11:01)
[2016-11-05] MEDS ORDERED: RESP: ALBUTEROL 2.5 MG/IPRATROPIUM 0.5 MG NEB (PRN) NEB (11:15)
[2016-11-05] MEDS ORDERED: RESP: RACEPINEPHRINE 2.25% 0.5 ML NEB NEB PRN (11:15)
[2016-11-05] MEDS ORDERED: POTASSIUM CHLORIDE 20 MEQ CONTROLLED RELEASE TAB PO PRN ×2 (11:15)
[2016-11-05] MEDS ORDERED: INSULIN REGULAR (IV INFUSION) 100 UNITS in SODIUM CHLORIDE 0.9% INJ 99 ML IV SCH (11:15)
[2016-11-05] MEDS ORDERED: MEPERIDINE HCL 25 MG/ML VIAL IV PRN (11:15)
[2016-11-05] MEDS ORDERED: NITROGLYCERIN-DEXTROSE INJ 250 ML IV SCH (11:15)
[2016-11-05] MEDS ORDERED: hydrALAZINE HCL 20 MG/ML VIAL IV PRN (11:15)
[2016-11-05] MEDS ORDERED: ALBUMIN HUMAN 5% 12.5 GM/250 ML BOTTLE IV PRN (11:15)
[2016-11-05] MEDS ORDERED: CALCIUM CHLORIDE 10% 1 GRAM/10 ML VIAL IV PRN (11:15)
[2016-11-05] MEDS ORDERED: PHENYLEPHRINE INJ 40 MG in DEXTROSE 5% IN WATE 500 ML INJ 496 ML IV SCH ×2 (11:15)
[2016-11-05] MEDS ORDERED: CLEVIDIPINE INJ 50 ML IV SCH (11:15)
[2016-11-05] MEDS ORDERED: MAGNESIUM SULFATE INJ 2 GM in SODIUM CHLORIDE 0.9% INJ 100 ML IV PRN ×4 (11:15)
[2016-11-05] MEDS ORDERED: METOPROLOL TARTRATE 5 MG/5 ML VIAL IV PUSH PRN (11:15)
[2016-11-05] MEDS ORDERED: EPINEPHrine (1:1000) INJ 4 MG in DEXTROSE 5% IN WATER INJ 246 ML IV SCH ×2 (11:15)
[2016-11-05] MEDS ORDERED: POTASSIUM CHLOR 20 MEQ PREMIX 100 ML IV PRN ×2 (11:15)
[2016-11-05] MEDS ORDERED: Post-op Orders (for Pharmacy) MISC OTHER ONE (11:15)
[2016-11-05] MEDS ORDERED: ONDANSETRON HCL 4 MG/2 ML VIAL IV PUSH PRN (11:15)
[2016-11-05] MEDS ORDERED: ACETAMINOPHEN 325 MG TAB PO PRN (11:15)
[2016-11-05] MEDS ORDERED: ACETAMINOPHEN 650 MG SUPP RECTAL PRN (11:15)
[2016-11-05] MEDS ORDERED: DOPamine INJ PREMIX 500 ML IV SCH (11:15)
[2016-11-05] MEDS ORDERED: DEXMEDETOMIDINE INJ 200 MCG in SODIUM CHLORIDE 0.9% INJ 50 ML IV SCH (11:15)
[2016-11-05] MEDS ORDERED: fentaNYL CITRATE 1000 MCG/20 ML VIAL ONE (11:38)
[2016-11-05] MEDS ORDERED: MIDAZOLAM HCL 5 MG/5 ML VIAL ONE (11:38)
--- NOTE | 2016-11-05 11:44 | PD.OP ---
cc: Audie Giraldo MD; Iraida Davis MD Operative Report Date of Surgery: Nov 05, 2016 Preoperative Diagnosis: Postoperative Diagnosis: Procedure: 1. Clampless Off-pump Coronary Artery Bypass Grafting x 1 with Left Internal Mammary Artery (ODE) to Left Anterior Descending (LAD) 2. Intraoperative Vein Mapping. . Surgeon: Iraida Davis Chargemaster Analyst(s): Elvira Torres Operation and Findings: PREPROCEDURE DIAGNOSES 1. Single Vessel Coronary Artery Disease. 2. Totally Occluded LAD 3. Left Ventricular Dysfunction s/p AICD 4. Chronic Nicotine Use POSTPROCEDURE DIAGNOSES Same SURGICAL PROCEDURE 1. Clampless Off-pump Coronary Artery Bypass Grafting x 1 with Left Internal Mammary Artery (DOE) to Left Anterior Descending (LAD) 2. Intraoperative Vein Mapping. SURGEON Iraida Davis MD FIRE INSPECTOR Lashanda Torres, [facility] ANESTHESIA General endotracheal REGULATORY COMPLIANCE DIRECTOR CORY Zapata, DO PREPARATION ChloraPrep. COUNTS Needle, sponge, and instrument counts were correct. DRAINS Two 32-Martiniquais mediastinal tubes. COMPLICATIONS None. INDICATIONS FOR PROCEDURE The patient is a 45-year-old presenting with chest pain. Patient was noted to have in-stent restenosis with totally occluded LAD. The patient is being brought to the operating room for surgical revascularization therapy. PROCEDURE Patient was brought to the operating room and placed supine on the OR table. Following the induction of adequate general endotracheal anesthesia and placement of appropriate monitoring devices, intraoperative vein mapping was performed which revealed poor-caliber conduit in bilateral lower extremities. The patient was then prepped and draped in standard sterile fashion. A median sternotomy was performed and the left internal mammary artery dissected free off the posterior sternal table. The patient was systemically heparinized and anticoagulation monitored by serial ACT measurements. The internal mammary artery had good pulsatile flow in it and was an excellent-caliber conduit. The pericardium was then divided in the midline, the cradle created and target analyzed. At this point, the anastomosis were performed in a beating-heart fashion using the Maquet stabilizing system. The left internal mammary artery was anastomosed to the mid LAD in an end-to-side fashion using 7-0 Prolene. The anastomotic sites was inspected and appeared to be hemostatic and patent. Protamine solution was given. Strict hemostasis was assured. The closure was undertaken. 2 chest tubes were placed. The pericardium was reapproximated in the midline. The sternum was approximated using sternal wires. The muscular and fascial layer were then closed in 3 layers. The patient tolerated the procedure well and was transferred to CVICU in stable condition. Iraida Davis MD Nov 05, 2016 11:44
[2016-11-05] MEDS ORDERED: PRIMIDONE 50 MG TAB PO SCH (12:00)
[2016-11-05] MEDS: CALCIUM CHLORIDE INJ 1 GM in SODIUM CHLORIDE 0.9% INJ 100 ML IV PRN ×2 (12:00→17:00)
--- NOTE | 2016-11-05 12:14 | RADRPT ---
EXAM DATE/TIME: 11/05/2016 11:33 [facility] COMPARISON: CHEST SINGLE AP, November 05, 2016, 5:58. INDICATIONS : Post CABG. MEDICAL HISTORY : Myocardial infarction. Seizure. Sleep apnea. SURGICAL HISTORY : Cardiac stents. Pacemaker. ENCOUNTER: Subsequent ACUITY: 2 weeks PAIN SCORE: Non-responsive. LOCATION: Bilateral chest FINDINGS: Interval median sternotomy. ETT at the level of the clavicles. Right IJ central line terminating in t he atriocaval junction. NGT in the stomach. Mediastinal drain and left-sided chest tube. Stable singl e lead AICD device. Minimal bibasilar airspace disease, likely atelectasis. Mediastinal contours are within normal limits. Remainder of the exam is unchanged. CONCLUSION: 1. Expected immediate postoperative features of CABG with lines and tubes, as above. 2. No pneumothorax. 3. Mild bibasilar airspace disease, likely atelectasis. Connor Bowen MD on November 05, 2016 at 12:10 Board Certified Radiologist. This report was verified electronically.
[2016-11-05] MEDS ORDERED: SODIUM CHLOR 0.9% 250 ML INJ 250 ML IV ONE (12:22)
[2016-11-05] MEDS ORDERED: LACTATED RINGER'S 1000 ML INJ 1,000 ML IV ONE (12:22)
[2016-11-05] MEDS ORDERED: SODIUM CHLOR 0.9% 1000 ML INJ 1,000 ML IV ONE (12:22)
[2016-11-05] MEDS: ACETAMINOPHEN 1000 MG/100 ML VIAL IV SCH ×3 (12:38→23:44)
[2016-11-05] MEDS ORDERED: levETIRAcetam 1000 MG INJ 100 ML IV ONE (12:45)
[2016-11-05] MEDS ORDERED: DEXTROSE 50% IN WATER 50 ML SYRINGE IV PUSH PRN (13:00)
[2016-11-05] MEDS: MORPHINE SULFATE 4 MG/ML INJ IV PRN ×3 (14:11→17:30)
[2016-11-05] MEDS ORDERED: SODIUM BICARBONATE 8.4% INJ 50 MEQ/50 ML SYR IV PUSH ONE (14:30)
[2016-11-05] MEDS: POTASSIUM CHLOR 20 MEQ PREMIX 100 ML IV PRN (15:22)
[2016-11-05] MEDS: KETOROLAC TROMETHAMINE 30 MG/ML (IVP) VIAL IV PUSH PRN (15:53)
[2016-11-05] MEDS: ceFAZolin 2 GM PREMIX 50 ML IV SCH ×2 (16:42→23:45)
[2016-11-05] MEDS: RESP: ALBUTEROL 2.5 MG/IPRATROPIUM 0.5 MG NEB (SCH) NEB ×2 (18:02→21:12)
[2016-11-05] MEDS: oxyCODONE/ACETAMINOPHEN 5 MG/325 MG TAB PO PRN ×2 (18:14→21:26)
[2016-11-05] MEDS: PRIMIDONE 50 MG TAB PO SCH ×2 (18:15→23:46)
[2016-11-05] MEDS: SODIUM CHLORIDE 0.9% FLUSH 10 ML FLUSH IV FLUSH SCH ×2 (18:15→21:25)
--- NOTE | 2016-11-05 20:34 | EKG ---
Date Performed: 11/05/2016 Time Performed: 05:59:14 PTAGE: 45 years EKG: Sinus rhythm ANTEROSEPTAL MYOCARDIAL INFARCTION , PROBABLY OLD ABNORMAL ECG PREVIOUS TRACING : 10/24/2016 08.00 Compared to prior tracing no significant change DOCTOR: Simona Gore Interpretating Date/Time 11/05/2016 20:33:36
--- NOTE | 2016-11-05 21:15 | PD.CONS ---
[facility] Service Critical Care Medicine Consult Requested By Iraida Davis Reason for Consult perioperative seizures Primary Care Physician Alejandro Pisano MD History of Present Illness This is a 45-year-old male with past medical history of prior OR 3, prior PCI, coronary artery disease, ischemic cardiomyopathy EF of 40%, AICD placement, who presents for semi-elective on pump CABG with DOE to LAD for chronically 100% occluded proximal LAD. His intraoperative course was uncomplicated. In the immediate postoperative period in the CVICU, the patient expressed a generalized tonic clonic seizure. Patient has a history of generalized tonic clonic seizures. Now he is extubate her, I interviewed the patient and he states that he has about one to 2 seizures a month. He was having more frequent seizures when he was stressed, but moved down here to get away from his stressors. He regularly sees a neurologist. He denies any shortness of breath, neurologic changes, headache, visual changes. Does endorse appropriate chest pain recently postop from his CABG. Critical care medicine is consulted to evaluate and manage his seizure disorder as well as any postoperative hemodynamic changes that may occur post CABG. Complete review systems otherwise negative unless otherwise document. Review of Systems Constitutional: DENIES: Diaphoretic episodes, Fatigue, Fever, Chills Respiratory: DENIES: Apneas, Cough, Sputum production, Shortness of breath Cardiovascular: COMPLAINS OF: Chest pain, DENIES: Palpitations, Syncope, Dyspnea on Exertion, Lower Extremity Edema, Orthopnea Gastrointestinal: DENIES: Abdominal pain, Constipation, Diarrhea, Nausea, Vomiting Genitourinary: DENIES: Urinary incontinence Neurologic: COMPLAINS OF: Seizures, DENIES: Headache, Localized weakness, Paresthesias, Speech Problems, Tremor Past Family Social History Allergies: Coded Allergies: Codeine (Verified Allergy, Severe, RASH, 11/05/16) Ibuprofen (Verified Allergy, Severe, RASH, 11/05/16) Warfarin (Verified Allergy, Severe, BLEEDING, 11/05/16) Uncoded Allergies: DEPRESSION MEDICATIONS (Adverse Reaction, Severe, VOMITING, 08/01/16) Past Medical History Ischemic myopathy EF initially 40-45%, currently 61% on most recent echo Anxiety Asthma Chronic kidney disease Depression Erectile dysfunction Gastroesophageal reflux disease Tractable epilepsy, seizure disorder, last seizure was in July, 1-2 seizures a month. Followed by Dr. Sanon in [facility] for seizure disorder Obstructive sleep apnea Postemetic stress disorder Past Surgical History AICD placement Right knee surgery Left wrist surgery Reported Medications Aspirin Lipitor Diazepam Gabapentin Imdur Lisinopril Metoprolol Nitrostat Protonix Primidone 200 mg 4 times a day Pro-air Seroquel Ranexa Zantac Trazodone Zonisamide Tylenol Active Ordered Medications See MAR Family History Reviewed in the chart and with the patient found to be noncontributory to his acute illness Social History Smokes denies alcohol Physical Exam Vital Signs Vital Signs Date Time Temp Pulse Resp B/P Pulse Ox O2 Delivery O2 Flow Rate FiO2 11/05/16 19:15 94 Nasal Cannula 3.00 11/05/16 15:30 40 11/05/16 15:30 97 Nasal Cannula 4 11/05/16 15:30 97 Nasal Cannula 4.00 11/05/16 15:30 96 4.00 11/05/16 15:30 97.9 81 18 105/83 97 144/81 11/05/16 15:00 40 11/05/16 15:00 80 11/05/16 15:00 97 Mechanical Ventilator 40 11/05/16 14:35 Nasal Cannula 40 11/05/16 13:47 96 50 11/05/16 13:45 50 11/05/16 13:20 95 40 11/05/16 13:00 50 11/05/16 11:39 95 50 11/05/16 11:31 96 Mechanical Ventilator 50 11/05/16 11:30 100 11/05/16 11:30 97 Mechanical Ventilator 100 11/05/16 11:30 98.1 75 10 118/64 97 11/05/16 11:28 70 11/05/16 11:22 96 50 11/05/16 06:26 97.3 71 18 141/83 98 Physical Exam GENERAL: Middle-aged male, sitting in a chair, no acute distress awake and alert HEENT: Normocephalic. Atraumatic. Pupils equal, round, reactive, conjugate. Mucous membranes are moist NECK: Trachea is midline. There is no JVD. Central line with dressing intact CHEST: Median sternotomy with dressing in place, clean dry and intact. Equal chest rise. Unlabored. CARDIOVASCULAR: Normal rate, regular rhythm. Sinus by telemetry. ABDOMEN: Soft, nontender, nondistended. No guarding. MUSCULOSKELETAL: Pulses 2+. No peripheral edema. NEUROLOGICAL: RASS 0. GCS 15. CAM -. No gross focal motor or sensory deficits. Laboratory Laboratory Tests Test 11/05/16 06:10 Blood Type O POSITIVE Antibody Screen NEGATIVE Crossmatch Leukocyte-Reduced Red Blood Cells Blood Bank Comment Assessment and Plan Assessment and Plan Assessment: This is a 45-year-old male postop day 0 status post on pump coronary artery bypass grafting 1, DOE to LAD, 4 chronically occluded proximal LAD. His course is been, located by early postoperative generalized tonic clonic seizure with history of seizure disorder. Recommendations: Seizure disorder -- restart home meds -- 1 time dose keppra 1000mg iv x 1 -- ativan prn for further seizures -- f/u as an outpatient with Dr. Sanon Post-op CABG -- continue current management plan -- extubated on pathway. CCM will follow along while the patient is in the CVICU. Esdras Crowe MD Nov 05, 2016 21:14
[2016-11-05] MEDS: AMIODARONE 200 MG TAB PO SCH (21:23)
[2016-11-06] VITALS (19 sets, daily range): BP systolic 94–135; BP diastolic 59–79; PULSE 70–113; RESP 16–20; TEMP 97.7–98.7; O2SAT 92–100
[2016-11-06] MEDS: oxyCODONE/ACETAMINOPHEN 5 MG/325 MG TAB PO PRN ×5 (02:40→19:07)
[2016-11-06] MEDS: KETOROLAC TROMETHAMINE 30 MG/ML (IVP) VIAL IV PUSH PRN (02:42)
[2016-11-06] MEDS: RESP: ALBUTEROL 2.5 MG/IPRATROPIUM 0.5 MG NEB (SCH) NEB ×4 (04:43→21:50)
[2016-11-06 05:47] LABS: MEAN CELL VOLUME 96.8 FL (80.0-100.0); PLATELET COUNT 202 TH/MM3 (150-450); RED BLOOD COUNT 4.13 MIL/MM3 (4.50-5.90); RED CELL DISTRIBUTION WIDTH 14.7 % (11.6-17.2); REVIEW FLAG FINAL; WHITE BLOOD COUNT 13.8 TH/MM3 (4.0-11.0)
[2016-11-06] MEDS ORDERED: PANTOPRAZOLE SOD 40 MG DELAYED RELEASE TAB PO SCH (06:00)
[2016-11-06] MEDS: PRIMIDONE 50 MG TAB PO SCH ×4 (06:06→23:45)
[2016-11-06] MEDS: ACETAMINOPHEN 1000 MG/100 ML VIAL IV SCH (06:10)
--- NOTE | 2016-11-06 06:20 | RADRPT ---
EXAM DATE/TIME: 11/06/2016 04:15 [facility] COMPARISON: CHEST SINGLE AP, November 05, 2016, 11:33. INDICATIONS : Post CABG. MEDICAL HISTORY : Myocardial infarction. Seizure. Sleep apnea. SURGICAL HISTORY : CABG. Pacemaker. Cardiac stents. Pacemaker ENCOUNTER: Subsequent ACUITY: 2 weeks PAIN SCORE: Non-responsive. LOCATION: Bilateral chest FINDINGS: Portable AP view of the chest demonstrates a normal-sized cardiac silhouette in this patient post med ginna sternotomy. Endotracheal tube and nasogastric tube have been removed. Right IJ line remains prese nt. Lungs are underinflated with atelectasis at both lung bases. No pneumothorax or pleural effusion is seen. Left chest tube and mediastinal drain remain present. CONCLUSION: 1. Stable bibasilar opacity likely representing atelectasis. 2. Left chest tube is present and no pneumothorax is visualized. Feroz Franco MD on November 06, 2016 at 6:18 Board Certified Radiologist. This report was verified electronically.
[2016-11-06] MEDS: POTASSIUM CHLOR 20 MEQ PREMIX 100 ML IV PRN (07:19)
[2016-11-06] MEDS: ceFAZolin 2 GM PREMIX 50 ML IV SCH ×3 (07:19→23:41)
[2016-11-06] MEDS: ASPIRIN 81 MG CHEW TAB PO SCH (08:43)
[2016-11-06] MEDS: AMIODARONE 200 MG TAB PO SCH ×2 (08:43→21:16)
[2016-11-06] MEDS: CLOPIDOGREL 75 MG TAB PO SCH (08:43)
[2016-11-06] MEDS: SODIUM CHLORIDE 0.9% FLUSH 10 ML FLUSH IV FLUSH SCH ×2 (08:44→21:29)
[2016-11-06] MEDS ORDERED: DIAZEPAM 2 MG TAB PO PRN (10:45)
--- NOTE | 2016-11-06 10:49 | PD.CAR.PN ---
CVT Progress Note CVT: POD #: 1 Subjective/Hospital Course: No complaints, doing well Objective: Vital Signs Date Time Temp Pulse Resp B/P Pulse Ox O2 Delivery O2 Flow Rate FiO2 11/06/16 07:45 98.2 71 18 94/66 97 117/59 11/06/16 07:45 97 2.00 11/06/16 07:00 77 11/06/16 04:00 97.7 71 18 135/75 97 131/69 11/06/16 03:40 18 11/06/16 03:40 18 11/06/16 03:33 96 Nasal Cannula 2.00 11/06/16 03:00 72 11/06/16 00:15 18 11/05/16 23:30 72 11/05/16 23:00 98.0 75 18 121/83 94 125/66 11/05/16 23:00 94 Nasal Cannula 3.00 11/05/16 21:12 96 Nasal Cannula 3.00 11/05/16 20:00 97.3 72 18 118/64 95 113/67 11/05/16 19:15 94 Nasal Cannula 3.00 11/05/16 18:51 71 11/05/16 15:30 40 11/05/16 15:30 97 Nasal Cannula 4 11/05/16 15:30 97 Nasal Cannula 4.00 11/05/16 15:30 96 4.00 11/05/16 15:30 97.9 81 18 105/83 97 144/81 11/05/16 15:00 40 11/05/16 15:00 80 11/05/16 15:00 97 Mechanical Ventilator 40 11/05/16 14:35 Nasal Cannula 40 11/05/16 13:47 96 50 11/05/16 13:45 50 11/05/16 13:20 95 40 11/05/16 13:00 50 11/05/16 11:39 95 50 11/05/16 11:31 96 Mechanical Ventilator 50 11/05/16 11:30 100 11/05/16 11:30 97 Mechanical Ventilator 100 11/05/16 11:30 98.1 75 10 118/64 97 11/05/16 11:28 70 11/05/16 11:22 96 50 Labs: Laboratory Tests Test 11/06/16 04:30 White Blood Count 13.8 TH/MM3 (4.0-11.0) Red Blood Count 4.13 MIL/MM3 (4.50-5.90) Hemoglobin 13.2 GM/DL (13.0-17.0) Hematocrit 40.0 % (39.0-51.0) Mean Corpuscular Volume 96.8 FL (80.0-100.0) Mean Corpuscular Hemoglobin 32.0 PG (27.0-34.0) Mean Corpuscular Hemoglobin 33.0 % Concent (32.0-36.0) Red Cell Distribution Width 14.7 % (11.6-17.2) Platelet Count 202 TH/MM3 (150-450) Mean Platelet Volume 8.0 FL (7.0-11.0) Sodium Level 138 MEQ/L (136-145) Potassium Level 4.0 MEQ/L (3.5-5.1) Chloride Level 108 MEQ/L (98-107) Carbon Dioxide Level 24.0 MEQ/L (21.0-32.0) Anion Gap 6 MEQ/L (5-15) Blood Urea Nitrogen 14 MG/DL (7-18) Creatinine 1.08 MG/DL (0.60-1.30) Estimat Glomerular Filtration 74 ML/MIN (>89) Rate Random Glucose 95 MG/DL (74-106) Calcium Level 7.9 MG/DL (8.5-10.1) Magnesium Level 2.0 MG/DL (1.5-2.5) Result Diagram: 11/06/16 04311/06/16 043 Imaging: Last 24 hours Impressions Chest X-Ray 11/06/16 0500 Signed Impressions: Service Date/Time: October 04:15 - CONCLUSION: 1. Stable bibasilar opacity likely representing atelectasis. 2. Left chest tube is present and no pneumothorax is visualized. Feroz Franco MD Cardiovascular: RRR Telemetry: NSR Pulmonary: CTA GI/: NABS Incision: dry and intact CT: 510ml since OR Plan: Transfer to stepdown Encourage ambulation Up to chair, remove segura Advance diet Resume seizure meds ASA, statin BP a little low for BB today Meron Vallecillo MD Nov 06, 2016 10:49
[2016-11-06] MEDS ORDERED: SOD PHOSPHATE/SOD BIPHOSPHATE (ADULT) ENEMA 133ML RECTAL PRN (11:00)
[2016-11-06] MEDS ORDERED: GLUCAGON 1 MG/ML VIAL OTHER PRN (11:00)
[2016-11-06] MEDS ORDERED: BISACODYL 10 MG SUPP RECTAL PRN (11:00)
[2016-11-06] MEDS ORDERED: DEXTROSE 50% IN WATER 50 ML VIAL(D50) IV PRN (11:00)
[2016-11-06] MEDS: GABAPENTIN 400 MG CAP PO SCH ×3 (11:28→23:45)
[2016-11-06] MEDS ORDERED: PRIMIDONE 50 MG TAB PO SCH (12:00)
[2016-11-06] MEDS: ZONISAMIDE 100 MG CAP PO SCH ×3 (12:22→21:15)
--- NOTE | 2016-11-06 12:43 | EKG ---
Date Performed: 11/06/2016 Time Performed: 05:31:20 PTAGE: 45 years EKG: Sinus rhythm Possible septal infarct - age undetermined Low QRS voltages in precordial leads Abnormal ECG PREVIOUS TRACING : 11/05/2016 05.59 DOCTOR: Audie Giraldo Interpretating Date/Time 11/06/2016 12:41:11
[2016-11-06] MEDS: INSULIN ASPART SUPPLEMENTAL SCALE SQ SCH ×3 (14:16→21:17)
[2016-11-06] MEDS: DOCUSATE SODIUM 100 MG CAP PO SCH (21:15)
[2016-11-06] MEDS: ATORVASTATIN 80 MG TAB PO SCH (21:16)
[2016-11-06] MEDS: SENNOSIDES 8.6 MG TAB PO SCH (21:16)
[2016-11-06] MEDS: traZODone HCL 100 MG TAB PO SCH (21:16)
[2016-11-06] MEDS: QUEtiapine FUMARATE 300 MG TAB PO SCH (21:29)
[2016-11-07] VITALS (24 sets, daily range): BP systolic 100–135; BP diastolic 66–74; PULSE 96–118; RESP 18–20; TEMP 98–99.5; O2SAT 92–98
[2016-11-07] MEDS: INSULIN ASPART SUPPLEMENTAL SCALE SQ SCH ×5 (02:00→21:00)
[2016-11-07 05:16] LABS: AUTOMATED NEUTROPHIL # 8.3 TH/MM3 (1.8-7.7); BASOPHIL % 0.1 % (0.0-2.0); EOSINOPHIL # 0.2 TH/MM3 (0-0.4); EOSINOPHIL % 1.5 % (0.0-4.0); HEMATOCRIT 37.6 % (39.0-51.0); HEMO FLAGS DIFF FINAL; LYMPH % 11.2 % (9.0-44.0); LYMPHOCYTE # 1.2 TH/MM3 (1.0-4.8); MEAN CELL VOLUME 96.9 FL (80.0-100.0); MEAN CORPUSCULAR HEMOGLOBIN 32.3 PG (27.0-34.0); MEAN CORPUSCULAR HGB CONC 33.3 % (32.0-36.0); NEUT % 78.2 % (16.0-70.0); PLATELET COUNT 164 TH/MM3 (150-450); RED BLOOD COUNT 3.88 MIL/MM3 (4.50-5.90); RED CELL DISTRIBUTION WIDTH 14.8 % (11.6-17.2); WHITE BLOOD COUNT 10.6 TH/MM3 (4.0-11.0)
[2016-11-07 05:33] LABS: BICARBONATE 27.7 MEQ/L (21.0-32.0); MAGNESIUM 1.9 MG/DL (1.5-2.5); POTASSIUM 4.1 MEQ/L (3.5-5.1)
[2016-11-07] MEDS: GABAPENTIN 400 MG CAP PO SCH ×3 (05:45→17:33)
[2016-11-07] MEDS: PRIMIDONE 50 MG TAB PO SCH ×3 (05:45→17:33)
[2016-11-07] MEDS: RESP: ALBUTEROL 2.5 MG/IPRATROPIUM 0.5 MG NEB (SCH) NEB ×3 (07:32→20:26)
[2016-11-07] MEDS: POLYETHYLENE GLYCOL 17 GM PKG PO SCH (08:03)
[2016-11-07] MEDS: MAGNESIUM HYDROXIDE SUSP 30 ML CUP PO SCH (08:03)
[2016-11-07] MEDS: ZONISAMIDE 100 MG CAP PO SCH ×4 (08:04→21:13)
[2016-11-07] MEDS: CLOPIDOGREL 75 MG TAB PO SCH (08:04)
[2016-11-07] MEDS: DOCUSATE SODIUM 100 MG CAP PO SCH ×2 (08:04→21:06)
[2016-11-07] MEDS: PANTOPRAZOLE SOD 40 MG DELAYED RELEASE TAB PO SCH (08:04)
[2016-11-07] MEDS: ASPIRIN 81 MG CHEW TAB PO SCH (08:04)
[2016-11-07] MEDS: MULTIVITAMINS/MINERALS THERAPEUTIC TAB PO SCH (08:04)
[2016-11-07] MEDS: AMIODARONE 200 MG TAB PO SCH ×2 (08:04→21:05)
[2016-11-07] MEDS: SODIUM CHLORIDE 0.9% FLUSH 10 ML FLUSH IV FLUSH SCH ×2 (08:06→21:15)
[2016-11-07] MEDS: oxyCODONE/ACETAMINOPHEN 5 MG/325 MG TAB PO PRN ×4 (08:06→21:27)
--- NOTE | 2016-11-07 11:38 | PD.CAR.PN ---
CVT Progress Note CVT: POD #: 2 Subjective/Hospital Course: No complaints, doing well 11/07/16 Doing well, no complaints Objective: Vital Signs Date Time Temp Pulse Resp B/P Pulse Ox O2 Delivery O2 Flow Rate FiO2 11/07/16 10:00 98 11/07/16 09:44 110 11/07/16 09:21 18 11/07/16 08:45 118 11/07/16 08:45 94 Nasal Cannula 1.00 11/07/16 08:45 98.3 114 20 135/71 94 11/07/16 07:34 93 Nasal Cannula 2.00 11/07/16 05:02 118 11/07/16 04:16 99.0 114 18 119/68 96 11/07/16 04:13 114 11/07/16 04:13 1.00 11/07/16 03:00 112 11/07/16 02:07 110 11/06/16 23:30 1.00 11/06/16 23:30 98.7 113 16 128/76 93 11/06/16 23:00 99 11/06/16 22:00 91 11/06/16 21:52 92 21 11/06/16 21:00 94 11/06/16 21:00 Room Air 11/06/16 20:00 88 11/06/16 19:11 98.4 97 18 125/75 97 11/06/16 19:00 90 11/06/16 18:18 94 11/06/16 17:15 87 11/06/16 16:00 82 11/06/16 15:30 97.8 82 18 120/79 100 11/06/16 15:19 95 2.00 11/06/16 15:19 97.9 85 18 131/70 95 Arterial Line Labs: Laboratory Tests Test 11/07/16 04:50 White Blood Count 10.6 TH/MM3 (4.0-11.0) Red Blood Count 3.88 MIL/MM3 (4.50-5.90) Hemoglobin 12.5 GM/DL (13.0-17.0) Hematocrit 37.6 % (39.0-51.0) Mean Corpuscular Volume 96.9 FL (80.0-100.0) Mean Corpuscular Hemoglobin 32.3 PG (27.0-34.0) Mean Corpuscular Hemoglobin 33.3 % Concent (32.0-36.0) Red Cell Distribution Width 14.8 % (11.6-17.2) Platelet Count 164 TH/MM3 (150-450) Mean Platelet Volume 7.8 FL (7.0-11.0) Neutrophils (%) (Auto) 78.2 % (16.0-70.0) Lymphocytes (%) (Auto) 11.2 % (9.0-44.0) Monocytes (%) (Auto) 9.0 % (0.0-8.0) Eosinophils (%) (Auto) 1.5 % (0.0-4.0) Basophils (%) (Auto) 0.1 % (0.0-2.0) Neutrophils # (Auto) 8.3 TH/MM3 (1.8-7.7) Lymphocytes # (Auto) 1.2 TH/MM3 (1.0-4.8) Monocytes # (Auto) 0.9 TH/MM3 (0-0.9) Eosinophils # (Auto) 0.2 TH/MM3 (0-0.4) Basophils # (Auto) 0.0 TH/MM3 (0-0.2) CBC Comment DIFF FINAL Differential Comment Sodium Level 141 MEQ/L (136-145) Potassium Level 4.1 MEQ/L (3.5-5.1) Chloride Level 108 MEQ/L (98-107) Carbon Dioxide Level 27.7 MEQ/L (21.0-32.0) Anion Gap 5 MEQ/L (5-15) Blood Urea Nitrogen 11 MG/DL (7-18) Creatinine 0.92 MG/DL (0.60-1.30) Estimat Glomerular Filtration 89 ML/MIN (>89) Rate Random Glucose 94 MG/DL (74-106) Calcium Level 7.9 MG/DL (8.5-10.1) Magnesium Level 1.9 MG/DL (1.5-2.5) Result Diagram: 11/07/1644911/07/16449 Cardiovascular: RRR Telemetry: NSR Pulmonary: CTA GI/: NABS Incision: dry and intact CT: min output overnight Plan: Encourage ambulation D/C chest tubes Stim BM BB, ASA, statin plavix Possible home tomorrow Meron Vallecillo MD Nov 07, 2016 11:38
--- NOTE | 2016-11-07 11:41 | HHI.FF ---
Face to Face Verification Diagnosis: (1) CAD (coronary artery disease) Physical Therapy Order: Evaluate and Treat, Improve ambulation Occupational Therapy Order: Evaluate and Treat Home Health Nursing Order: Medical education Signs/symptoms of disease process Medication education-adverse effect Nursing assessment with vital signs I have seen patient Missael Hargrove on 11/07/16. My clinical findings support the need for the requested home health care services because: Ltd mobility - disease progression Deconditioned w/ increased weakness Limited ability to care for self I certify that my clinical findings support that this patient is homebound because: Post-op weakness Unsafe to leave home unassisted Meron Vallecillo MD Nov 07, 2016 11:41
[2016-11-07] MEDS ORDERED: OXYC1TAB63 PO (11:45)
[2016-11-07] MEDS ORDERED: AMIO200T PO (11:45)
[2016-11-07] MEDS ORDERED: PILL SPLITTER OTHER PRN (11:45)
[2016-11-07] MEDS ORDERED: DOCU1CAP39 PO (11:45)
[2016-11-07] MEDS ORDERED: THERM PO (11:45)
[2016-11-07] MEDS ORDERED: PLAV75TA29 PO (11:45)
[2016-11-07] MEDS: SENNOSIDES 8.6 MG TAB PO SCH (21:05)
[2016-11-07] MEDS: ATORVASTATIN 80 MG TAB PO SCH (21:06)
[2016-11-07] MEDS: METOPROLOL TARTRATE 25 MG TAB PO SCH (21:07)
[2016-11-07] MEDS: traZODone HCL 100 MG TAB PO SCH (21:13)
[2016-11-07] MEDS: QUEtiapine FUMARATE 300 MG TAB PO SCH (21:13)
[2016-11-08] VITALS (25 sets, daily range): BP systolic 113–129; BP diastolic 59–77; PULSE 96–112; RESP 18–20; TEMP 98–98.7; O2SAT 93–97
[2016-11-08] MEDS: oxyCODONE/ACETAMINOPHEN 5 MG/325 MG TAB PO PRN ×4 (00:39→17:15)
[2016-11-08] MEDS: GABAPENTIN 400 MG CAP PO SCH ×4 (00:39→17:15)
[2016-11-08] MEDS: PRIMIDONE 50 MG TAB PO SCH ×4 (00:39→17:16)
[2016-11-08] MEDS: INSULIN ASPART SUPPLEMENTAL SCALE SQ SCH ×4 (06:07→21:00)
--- NOTE | 2016-11-08 06:10 | RADRPT ---
EXAM DATE/TIME: 11/08/2016 05:04 [facility] COMPARISON: CHEST SINGLE AP, November 06, 2016, 4:15. INDICATIONS : Chest tube removal. MEDICAL HISTORY : Myocardial infarction. Seizure. Sleep apnea. SURGICAL HISTORY : CABG. Pacemaker. Cardiac stents. Pacemaker ENCOUNTER: Sequela ACUITY: 2 weeks PAIN SCORE: 6/10 LOCATION: Chest. FINDINGS: A single view of the chest demonstrates the left subclavian pacemakers in good position. There are 8 intact sternal wires. Right IJ central line in good position. Mild bibasilar atelectasis. Mild perihi lar vascular congestion.. The cardiomediastinal contours are unremarkable. Osseous structures are i ntact. CONCLUSION: Minimal perihilar vascular congestion with some basilar atelectasis. Pacemaker and central line are b oth in good position. The left chest tube has been removed without evidence of residual pneumothorax . Evelio Lipscomb MD on November 08, 2016 at 6:08 Board Certified Radiologist. This report was verified electronically.
[2016-11-08] MEDS: RESP: ALBUTEROL 2.5 MG/IPRATROPIUM 0.5 MG NEB (SCH) NEB ×2 (08:30→12:45)
[2016-11-08] MEDS: SODIUM CHLORIDE 0.9% FLUSH 10 ML FLUSH IV FLUSH SCH ×2 (09:00→22:34)
[2016-11-08] MEDS ORDERED: BISACODYL 10 MG SUPP RECTAL PRN (09:15)
[2016-11-08] MEDS: DOCUSATE SODIUM 100 MG CAP PO SCH ×2 (09:21→22:32)
[2016-11-08] MEDS: POLYETHYLENE GLYCOL 17 GM PKG PO SCH (09:21)
[2016-11-08] MEDS: ZONISAMIDE 100 MG CAP PO SCH ×4 (09:21→22:33)
[2016-11-08] MEDS: PANTOPRAZOLE SOD 40 MG DELAYED RELEASE TAB PO SCH (09:21)
[2016-11-08] MEDS: MAGNESIUM HYDROXIDE SUSP 30 ML CUP PO SCH (09:21)
[2016-11-08] MEDS: MULTIVITAMINS/MINERALS THERAPEUTIC TAB PO SCH (09:22)
[2016-11-08] MEDS: METOPROLOL TARTRATE 25 MG TAB PO SCH ×2 (09:22→22:33)
[2016-11-08] MEDS: ASPIRIN 81 MG CHEW TAB PO SCH (09:22)
[2016-11-08] MEDS: AMIODARONE 200 MG TAB PO SCH ×2 (09:22→22:33)
[2016-11-08] MEDS: CLOPIDOGREL 75 MG TAB PO SCH (09:22)
--- NOTE | 2016-11-08 10:27 | HHI.DS ---
Discharge Summary Admission Date Nov 05, 2016 at 05:18 Discharge Date: Nov 08, 2016 Admitting Diagnosis Ischemic Cardiomyopathy CAD (1) CAD (coronary artery disease) Diagnosis: Principal Procedures CABG Brief History 45 y/o male with h/o seizure disorder, ischemic cardiomyopathy s/p AICD placement, sleep apnea, COPD and tobacco abuse presents with single vessel CAD. He c/o exertional chest pressure and dyspnea. CBC/BMP: 11/07/16 0450 11/07/16 0450 Significant Findings Laboratory Tests Test 11/06/16 11/07/16 04:30 04:50 White Blood Count 13.8 TH/MM3 (4.0-11.0) Red Blood Count 4.13 MIL/MM3 3.88 MIL/MM3 (4.50-5.90) (4.50-5.90) Chloride Level 108 MEQ/L 108 MEQ/L (98-107) (98-107) Estimat Glomerular Filtration 74 ML/MIN (>89) Rate Calcium Level 7.9 MG/DL 7.9 MG/DL (8.5-10.1) (8.5-10.1) Hemoglobin 12.5 GM/DL (13.0-17.0) Hematocrit 37.6 % (39.0-51.0) Neutrophils (%) (Auto) 78.2 % (16.0-70.0) Monocytes (%) (Auto) 9.0 % (0.0-8.0) Neutrophils # (Auto) 8.3 TH/MM3 (1.8-7.7) Imaging Last Impressions Chest X-Ray 11/08/16 0600 Signed Impressions: Service Date/Time: Tuesday, November 08, 2016 05:04 - CONCLUSION: Minimal perihilar vascular congestion with some basilar atelectasis. Pacemaker and central line are both in good position. The left chest tube has been removed without evidence of residual pneumothorax. Evelio Lipscomb MD PE at Discharge chest - CTA COR - RRR ABD - NABS, NT wound - dry and intact Hospital Course Patient underwent off pump CABG x 1 on 11/05/16. Postoperatively he did have a seizure which was treated. Otherwise, his postop course was unremarkable and he is being discharged on POD 3. Pt Condition on Discharge: Good Discharge Disposition: Disch w/ Home Health Serv Discharge Instructions DIET: Follow Instructions for: Heart Healthy Diet Activities you can perform: Weight Bearing as Tr, Shower Only-No Bath Activities to avoid: Lifting/Bending, Driving Follow up Referrals: Cardiology @ [facility] with Audie Giraldo MD PCP Follow-up with DR [facility] with Iraida Davis MD New Medications: Amiodarone (Amiodarone) 200 Mg Tab 200 MG PO Q12HR Regulate Heart Beat #28 Ref 0 TAB Clopidogrel (Plavix) 75 Mg Tab 75 MG PO DAILY Blood Clot Prevention #30 Ref 1 TAB Docusate Sodium (Dok) 100 Mg Cap 100 MG PO BID PRN CONSTIPATION #28 Ref 0 CAP Multiple Vitamins W/ Minerals (Thera M Plus) 1 Tab 1 TAB PO DAILY Nutritional Supplement #100 Ref 1 TAB Oxycodone-Acetaminophen (Oxycodone-Acetaminophen) 5-325 mg Tab 1 TAB PO Q3H PRN PAIN SCALE 1 TO 5 #30 Ref 0 TAB Continued Medications: Albuterol 8.5 GM Inh (Proair Hfa 8.5 GM Inh) 90 Mcg/Act Aer 1 PUFF INH Q4H 108 mcg/actuation PRN SHORTNESS OF BREATH #1 Ref 0 INHALER Aspirin (Aspirin Low Dose) 81 Mg Chew 81 MG CHEW DAILY Ref 0 TAB Atorvastatin (Atorvastatin) 80 Mg Tab 80 MG PO HS Cholesterol Management #30 Ref 0 TAB Diazepam (Diazepam) 2 Mg Tab 2 MG PO BID PRN ANXIETY Ref 0 TAB Gabapentin (Gabapentin) 800 Mg Tab 800 MG PO Q6HR #90 Ref 0 TAB Pantoprazole (Pantoprazole) 40 Mg Tab 40 MG PO DAILY Reflux #30 Ref 0 TAB Primidone (Primidone) 50 Mg Tab 200 MG PO Q6HR Control Seizures #180 Ref 0 TAB Quetiapine (Quetiapine) 300 Mg Tab 300 MG PO HS #30 Ref 0 TAB Trazodone (Trazodone) 100 Mg Tablet 100 MG PO HS Control Depression #30 Ref 0 TAB Zonisamide (Zonisamide) 100 Mg Cap 100 MG PO QID Control Seizures #60 Ref 0 CAP Meron Vallecillo MD Nov 08, 2016 10:27
[2016-11-08] MEDS: QUEtiapine FUMARATE 300 MG TAB PO SCH (22:32)
[2016-11-08] MEDS: SENNOSIDES 8.6 MG TAB PO SCH (22:32)
[2016-11-08] MEDS: traZODone HCL 100 MG TAB PO SCH (22:32)
[2016-11-08] MEDS: ATORVASTATIN 80 MG TAB PO SCH (22:32)
[2016-11-09] VITALS (9 sets, daily range): BP systolic 116–136; BP diastolic 68–74; PULSE 102–113; RESP 18–20; TEMP 97.5–97.6; O2SAT 92–93
[2016-11-09] MEDS: PRIMIDONE 50 MG TAB PO SCH ×2 (00:55→05:42)
[2016-11-09] MEDS: GABAPENTIN 400 MG CAP PO SCH ×2 (01:00→05:41)
[2016-11-09] MEDS: INSULIN ASPART SUPPLEMENTAL SCALE SQ SCH (05:39)
[2016-11-09] MEDS: PANTOPRAZOLE SOD 40 MG DELAYED RELEASE TAB PO SCH (08:39)
[2016-11-09] MEDS: ASPIRIN 81 MG CHEW TAB PO SCH (08:39)
[2016-11-09] MEDS: AMIODARONE 200 MG TAB PO SCH (08:39)
[2016-11-09] MEDS: MAGNESIUM HYDROXIDE SUSP 30 ML CUP PO SCH (08:40)
[2016-11-09] MEDS: CLOPIDOGREL 75 MG TAB PO SCH (08:40)
[2016-11-09] MEDS: MULTIVITAMINS/MINERALS THERAPEUTIC TAB PO SCH (08:40)
[2016-11-09] MEDS: DOCUSATE SODIUM 100 MG CAP PO SCH (08:40)
[2016-11-09] MEDS: METOPROLOL TARTRATE 25 MG TAB PO SCH (08:40)
[2016-11-09] MEDS: POLYETHYLENE GLYCOL 17 GM PKG PO SCH (08:40)
[2016-11-09] MEDS: SODIUM CHLORIDE 0.9% FLUSH 10 ML FLUSH IV FLUSH SCH (08:40)
[2016-11-09] MEDS: ZONISAMIDE 100 MG CAP PO SCH (08:40)
[2016-11-09] MEDS: oxyCODONE/ACETAMINOPHEN 5 MG/325 MG TAB PO PRN (08:41)
[2016-11-10] MEDS ORDERED: METO25TA3 PO (10:37)
== END 2016-11-09 09:00 | disposition home health service (06) | DRG 236 ==
LOC: HSDI 11-05 05:18 → HCVR 11-05 11:25 → HCIN 11-06 15:43
PROVIDERS: ADMIT Thoracic Surgery (Cardiothoracic Vascular Surgery); ATTEND Thoracic Surgery (Cardiothoracic Vascular Surgery)
PROC: 02100Z9 Bypass Coronary Artery, One Artery from Left Internal Mammary, Open Approach (ICD-10-PCS; principal; 2016-11-05 07:29)
DX: T82.855A Stenosis of coronary artery stent, initial encounter (principal); I25.82 Chronic total occlusion of coronary artery; J44.9 Chronic obstructive pulmonary disease, unspecified; I25.10 Atherosclerotic heart disease of native coronary artery without angina pectoris; I25.5 Ischemic cardiomyopathy; G40.909 Epilepsy, unspecified, not intractable, without status epilepticus; G47.33 Obstructive sleep apnea (adult) (pediatric); K21.9 Gastro-esophageal reflux disease without esophagitis; N18.9 Chronic kidney disease, unspecified; F32.9 Major depressive disorder, single episode, unspecified; F41.9 Anxiety disorder, unspecified; F43.10 Post-traumatic stress disorder, unspecified; J45.909 Unspecified asthma, uncomplicated; Y83.8 Other surgical procedures as the cause of abnormal reaction of the patient, or of later complication, without mention of misadventure at the time of the procedure; I25.2 Old myocardial infarction; Z79.82 Long term (current) use of aspirin; Z95.810 Presence of automatic (implantable) cardiac defibrillator; Z87.891 Personal history of nicotine dependence
CPT/HCPCS: 71010; 76937; 80048; 82948; 83735; 85014; 85025; 85027; 86850; 86900; 86901; 86920; 93005; 94002; 94150; 94640; 94664; 94667; 94668; C1768; C9248; J0131; J0171; J0690; J1644; J1815; J1885; J1953; J2250; J2270; J2405; J2440; J2720; J3010; J3370; J3475; J3480; J7030; J7050; J7120

== ENCOUNTER 2017-02-12 15:05 | Emergency (ER) | payer OTHER ==
[~2017-02-12] VITALS: Ht 172.7 cm; Wt 100.0 kg
[~2017-02-12 15:05] MED LIST changes: +AMIO200T PO; -ASPI81CH37 CHEW; +ASPI81CH6 CHEW; -ATOR1TAB18 PO; +ATOR80TA45 PO; +DOCU1CAP39 PO; -ISOS20TA PO; +METO1TAB9 PO; +METO25TA3 PO; -METO50TA11 PO; -NITR0.4S SL; +OXYC1TAB63 PO; +PLAV75TA29 PO; -RANI150T PO; -RANO500 PO; +THERM PO; +TRAZ100T10 PO; -TRAZ100T6 PO
[2017-02-12 15:09] VITALS: BP 135/78; PULSE 86; RESP 15; TEMP 97.8; O2SAT 100
--- NOTE | 2017-02-12 16:10 | PD ---
HPI . Abscess Chief Complaint: Skin Problem Time Seen by Provider: 15:59 Travel History International Travel<30 days: No Contact w/Intl Traveler<30days: No History of Present Illness HPI 46-year-old male patient presents to the emergency department for evaluation of an abscess under his left axilla that has been there for 3 days. Patient denies any fevers, chills, malaise. Patient denies any nausea, vomiting, chest pain, , diarrhea. Patient denies any paresthesias. Patient has full range of motion of the left upper extremity. Patient denies any IV drug use. PFSH Past Medical History Arthritis: Yes Depression: Yes Cancer: No Cardiovascular Problems: Yes (STENTS, ICD) Chest Pain: No Diabetes: No (states pre diabetic) Gastrointestinal Disorders: No Glaucoma: No Hepatitis: No Hiatal Hernia: No Hypertension: Yes Neurologic: Yes (seizures) Respiratory: Yes (SLEEP APNEA) Integumentary: No Migraines: Yes Myocardial Infarction: Yes Seizures: Yes Thyroid Disease: No Ulcer: Yes (stomach ulcer in the past) Past Surgical History AICD: Yes Cardiac Surgery: Yes (stent, defib) Joint Replacement: Yes Pacemaker: Yes (DEFIB) Social History Alcohol Use: Yes Tobacco Use: Yes Substance Use: Yes (marijuana) Allergies-Medications (Allergen,Severity, Reaction): Coded Allergies: codeine (Unverified Allergy, Severe, RASH, 02/12/17) ibuprofen (Unverified Allergy, Severe, RASH, 02/12/17) warfarin (Unverified Allergy, Severe, BLEEDING, 02/12/17) Uncoded Allergies: DEPRESSION MEDICATIONS (Adverse Reaction, Severe, VOMITING, 08/01/16) Reported Meds & Prescriptions Reported Meds & Active Scripts Active Keflex (Cephalexin) 500 Mg Cap 500 Mg PO Q6H 10 Days Bactrim DS (Sulfamethoxazole-Trimethoprim) 800-160 Mg Tab 1 Tab PO BID 10 Days Ultram (Tramadol HCl) 50 Mg Tab 50 Mg PO Q6H PRN Metoprolol Tartrate 25 Mg Tab 12.5 Mg PO BID Oxycodone-Acetaminophen 5-325 mg Tab 1 Tab PO Q3H PRN Thera M Plus (Multivitamins/Minerals Therapeutic) 1 Tab 1 Tab PO DAILY Dok (Docusate Sodium) 100 Mg Cap 100 Mg PO BID PRN Plavix (Clopidogrel Bisulfate) 75 Mg Tab 75 Mg PO DAILY Amiodarone (Amiodarone HCl) 200 Mg Tab 200 Mg PO Q12HR Reported Tylenol (Acetaminophen) 325 Mg Tab 650 Mg PO Q6H PRN Trazodone (Trazodone HCl) 100 Mg Tablet 100 Mg PO HS Proair Hfa 8.5 GM Inh (Albuterol Sulfate) 90 Mcg/Act Aer 1 Puff INH Q4H PRN 108 mcg/actuation Primidone 50 Mg Tab 200 Mg PO Q6HR Gabapentin 800 Mg Tab 800 Mg PO Q6HR Aspirin Low Dose (Aspirin) 81 Mg Chew 81 Mg CHEW DAILY Pantoprazole (Pantoprazole Sodium) 40 Mg Tab 40 Mg PO DAILY Lisinopril 10 Mg Tab 10 Mg PO DAILY Metoprolol Succinate ER 24 HR (Metoprolol Succinate) 50 Mg Tab 50 Mg PO DAILY Atorvastatin (Atorvastatin Calcium) 80 Mg Tab 80 Mg PO HS Zonisamide 100 Mg Cap 100 Mg PO QID Quetiapine (Quetiapine Fumarate) 300 Mg Tab 300 Mg PO HS Diazepam 2 Mg Tab 2 Mg PO BID PRN Review of Systems Except as stated in HPI: all other systems reviewed are Neg Physical Exam Narrative GENERAL: Well-nourished, well-developed 46-year-old male patient in no acute distress. Nontoxic appearing. SKIN: There is an indurated area in the left axilla which measures about 2 cm in diameter. It is fluctuant but there is no pointing or drainage. There is a zone of inflammation around it but no lymphangitis. HEAD: Normocephalic. Atraumatic. EYES: No scleral icterus. No injection or drainage. NECK: Supple, trachea midline. No JVD or lymphadenopathy. CARDIOVASCULAR: Regular rate and rhythm without murmurs, gallops, or rubs. RESPIRATORY: Breath sounds equal bilaterally. No accessory muscle use. GASTROINTESTINAL: Abdomen soft, non-tender, nondistended. MUSCULOSKELETAL: No cyanosis, or edema. Data Data Last Documented VS Vital Signs Date Time Temp Pulse Resp B/P (MAP) Pulse Ox O2 Delivery O2 Flow Rate FiO2 02/12/17 16:51 02/12/17 15:09 97.8 86 15 100 Orders Orders Lidocaine 1% Inj (50 Ml) (Xylocaine 1% I (02/12/17 16:15) Wound Culture And Gram Stain (02/12/17 16:05) Ed Discharge Order (02/12/17 16:47) [facility] Medical Decision Making Medical Screen Exam Complete: Yes Emergency Medical Condition: Yes Differential Diagnosis Differential diagnoses include but not limited to cellulitis, abscess, wound, bug bite Narrative Course 46-year-old male patient presents emergency department for evaluation of an abscess under his left axilla 3 days. Patient denies any fevers, chills, malaise. Area of fluctuation is approximately 2 cm and will be drained. Please see my procedural narrative. Patient given prescription Bactrim, Keflex and Ultram and instructed to return to the emergency department in 2 days to get the packing removed or sooner if needed. Procedures Procedure Narrative INCISION AND DRAINAGE OF ABSCESS: The area was prepped and was sterilely draped. A subcutaneous wheal of 1 % Xylocaine with a total number 3 mL was used to anesthetize the area properly. A number 11 scalpel was used to make a 1 -cm incision across the area of the abscess. The abscess was drained, complex loculations were broken down, and irrigated with normal saline. Cultures were obtained. Quarter inch iodoform packing was placed in the wound. Sterile dressing applied. Patient advised to have packing removed in two days. Diagnosis Primary Impression: Abscess Referrals: Primary Care Physician Patient Instructions: Abscess (GEN), Abscess Incision and Drainage (GEN), General Instructions Additional Instructions: Please return to emergency department if your symptoms return or worsen. Follow up with your primary care provider. Take medications as prescribed. Keep wound clean and dry. Return to the emergency department in 2 days to get packing removed Med/Other Pt SpecificInfo: Prescription(s) given Scripts Cephalexin (Keflex) 500 Mg Cap 500 MG PO Q6H for Infection for 10 Days, #40 CAP 0 Refills Prov: Keyla Lemon 02/12/17 Sulfamethoxazole-Trimethoprim (Bactrim DS) 800-160 Mg Tab 1 TAB PO BID for Infection for 10 Days, #20 TAB 0 Refills Prov: Keyla Lemon 02/12/17 Tramadol (Ultram) 50 Mg Tab 50 MG PO Q6H Y for PAIN, #10 TAB 0 Refills Prov: Beck Elaine MD 02/12/17 Disposition: 01 DISCHARGE HOME Condition: Stable Keyla Lemon Feb 12, 2017 16:10
[2017-02-12] MEDS ORDERED: LIDOCAINE HCL 1% 50 ML VIAL INFIL ONE (16:15)
[2017-02-12] MEDS ORDERED: CEPH-460 PO (16:45)
[2017-02-12] MEDS ORDERED: BACT800T5 PO (16:45)
[2017-02-12] MEDS ORDERED: TRAM50 PO (16:45)
== END 2017-02-12 17:04 | disposition home or self-care (01) ==
LOC: NEPK 15:05
DX: L02.412 Cutaneous abscess of left axilla (principal); B95.61 Methicillin susceptible Staphylococcus aureus infection as the cause of diseases classified elsewhere; I10 Essential (primary) hypertension; Z72.0 Tobacco use
CPT/HCPCS: 10061; 86403; 87070; 87186

== ENCOUNTER 2017-02-14 16:23 | Emergency (ER) | payer OTHER ==
[~2017-02-14] VITALS: Ht 172.7 cm; Wt 100.0 kg
[~2017-02-14 16:23] MED LIST changes: +BACT800T5 PO; +CEPH-460 PO; +TRAM50 PO
[2017-02-14 16:24] VITALS: BP 141/71; PULSE 82; RESP 12; TEMP 98.6; O2SAT 98
--- NOTE | 2017-02-14 16:53 | PD ---
HPI Chief Complaint: Wound/Suture/Staple Re-Check Time Seen by Provider: 16:48 Travel History International Travel<30 days: No Contact w/Intl Traveler<30days: No Traveled to known affect area: No History of Present Illness HPI 46-year-old male presents emergency department requesting packing removal from an abscess that was drained 2 days ago to his left armpit. Reports improvement in the area. Denies fever, vomiting. Has been taking Bactrim and Keflex as prescribed. Symptoms are mild in severity. Area is aggravated with palpation. Allergies to codeine, ibuprofen, warfarin, and depression medications. No other medical complaints. No other modifying factors or associated signs and symptoms. PFSH Past Medical History Hx Anticoagulant Therapy: Yes (ASA 81MG, PLAVIX) Arthritis: Yes Depression: Yes Cancer: No Cardiovascular Problems: Yes (STENTS, ICD) Chest Pain: No Diabetes: No (states pre diabetic) Gastrointestinal Disorders: No Glaucoma: No Hepatitis: No Hiatal Hernia: No Hypertension: Yes Neurologic: Yes (seizures) Respiratory: Yes (SLEEP APNEA) Integumentary: No Migraines: Yes Myocardial Infarction: Yes Seizures: Yes Thyroid Disease: No Ulcer: Yes (stomach ulcer in the past) Past Surgical History AICD: Yes Cardiac Surgery: Yes (stent, defib) Joint Replacement: Yes Pacemaker: Yes (DEFIB) Social History Alcohol Use: Yes Tobacco Use: Yes Substance Use: Yes (marijuana) Allergies-Medications (Allergen,Severity, Reaction): Coded Allergies: codeine (Unverified Allergy, Severe, RASH, 02/14/17) ibuprofen (Unverified Allergy, Severe, RASH, 02/14/17) warfarin (Unverified Allergy, Severe, BLEEDING, 02/14/17) Uncoded Allergies: DEPRESSION MEDICATIONS (Adverse Reaction, Severe, VOMITING, 08/01/16) Reported Meds & Prescriptions Reported Meds & Active Scripts Active Keflex (Cephalexin) 500 Mg Cap 500 Mg PO Q6H 10 Days Bactrim DS (Sulfamethoxazole-Trimethoprim) 800-160 Mg Tab 1 Tab PO BID 10 Days Ultram (Tramadol HCl) 50 Mg Tab 50 Mg PO Q6H PRN Metoprolol Tartrate 25 Mg Tab 12.5 Mg PO BID Oxycodone-Acetaminophen 5-325 mg Tab 1 Tab PO Q3H PRN Thera M Plus (Multivitamins/Minerals Therapeutic) 1 Tab 1 Tab PO DAILY Dok (Docusate Sodium) 100 Mg Cap 100 Mg PO BID PRN Plavix (Clopidogrel Bisulfate) 75 Mg Tab 75 Mg PO DAILY Amiodarone (Amiodarone HCl) 200 Mg Tab 200 Mg PO Q12HR Reported Tylenol (Acetaminophen) 325 Mg Tab 650 Mg PO Q6H PRN Trazodone (Trazodone HCl) 100 Mg Tablet 100 Mg PO HS Proair Hfa 8.5 GM Inh (Albuterol Sulfate) 90 Mcg/Act Aer 1 Puff INH Q4H PRN 108 mcg/actuation Primidone 50 Mg Tab 200 Mg PO Q6HR Gabapentin 800 Mg Tab 800 Mg PO Q6HR Aspirin Low Dose (Aspirin) 81 Mg Chew 81 Mg CHEW DAILY Pantoprazole (Pantoprazole Sodium) 40 Mg Tab 40 Mg PO DAILY Lisinopril 10 Mg Tab 10 Mg PO DAILY Metoprolol Succinate ER 24 HR (Metoprolol Succinate) 50 Mg Tab 50 Mg PO DAILY Atorvastatin (Atorvastatin Calcium) 80 Mg Tab 80 Mg PO HS Zonisamide 100 Mg Cap 100 Mg PO QID Quetiapine (Quetiapine Fumarate) 300 Mg Tab 300 Mg PO HS Diazepam 2 Mg Tab 2 Mg PO BID PRN Review of Systems Except as stated in HPI: all other systems reviewed are Neg Physical Exam Narrative GENERAL: Well-nourished, well-developed male patient, in no acute distress; a febrile, nontoxic appearing SKIN: Warm and dry. Left axilla with indurated area post incision and drainage with iodoform packing intact; without surrounding erythema or lymphangitis. No lymphadenopathy. HEAD: Atraumatic. Normocephalic. EYES: Pupils equal and round. No scleral icterus. No injection or drainage. ENT: Mucosa pink and moist. Airway patent. NECK: Trachea midline. CARDIOVASCULAR: Regular rate. RESPIRATORY: No accessory muscle use. GASTROINTESTINAL: Obese. MUSCULOSKELETAL: No obvious deformities. No clubbing. No cyanosis. No edema. NEUROLOGICAL: Awake and alert. Oriented 3. No obvious cranial nerve deficits. Motor grossly within normal limits. Normal speech. PSYCHIATRIC: Appropriate mood and affect; insight and judgment normal. Data Data Last Documented VS Vital Signs Date Time Temp Pulse Resp B/P (MAP) Pulse Ox O2 Delivery O2 Flow Rate FiO2 02/14/17 16:24 98.6 82 12 141/71 (94) 98 Orders Orders Ed Discharge Order (02/14/17 16:54) [facility] Medical Decision Making Medical Screen Exam Complete: Yes Emergency Medical Condition: Yes Medical Record Reviewed: Yes Differential Diagnosis Abscess recheck, packing removal, medical clearance Narrative Course 46-year-old male presents for abscess packing removal to his left axilla. He was seen in 2 days ago and [facility] [employer] report shows growth of Staphylococcus aureus and susceptibility to Bactrim. Instructed patient that he can stop taking the Keflex and continue Bactrim as prescribed. Iodoform packing removed. Patient tolerated well. Instructed patient to follow up with primary care provider. Patient verbalizes understanding and agreement with treatment plan. Patient is medically cleared and stable for discharge. Discussed reasons to return to the emergency department. Patient agrees with treatment plan. The patients vital signs are stable and the patient is stable for outpatient follow-up and treatment. Patient discharged home, stable and in no acute distress. Diagnosis Primary Impression: Encounter for abscess packing removal Referrals: [facility] Primary Care Physician Patient Instructions: Abscess (ED), Abscess Follow-up (ED), General Instructions Additional Instructions: Complete full course of antibiotics Warm compresses to the affected area Keep area clean and dry Ibuprofen or Tylenol as directed and as needed for pain and inflammation Follow-up with primary care provider Return to emergency department immediately with worsening of symptoms Med/Other Pt SpecificInfo: No Change to Meds, No Meds Exist/No RX given Disposition: 01 DISCHARGE HOME Condition: Stable Ana Gutierrez Feb 14, 2017 16:53
== END 2017-02-14 17:39 | disposition home or self-care (01) ==
LOC: NEPK 16:23
DX: Z48.01 Encounter for change or removal of surgical wound dressing (principal)
CPT/HCPCS: 99281

== ENCOUNTER 2017-04-29 10:36 | Emergency (ER) | payer OTHER, MEDICAID ==
[~2017-04-29] VITALS: Ht 172.7 cm; Wt 108.0 kg
[2017-04-29 10:38] VITALS: BP 163/89; PULSE 114; RESP 16; TEMP 98.2; O2SAT 99
[2017-04-29 10:41] VITALS: PULSE 105
--- NOTE | 2017-04-29 11:08 | PD ---
HPI Chief Complaint: Pain: Acute or Chronic Time Seen by Provider: 11:07 Travel History International Travel<30 days: No Contact w/Intl Traveler<30days: No Traveled to known affect area: No History of Present Illness HPI 46-year-old male with history of right total knee replacement presents the emergency department with 2 complaints. Doesn't male hyperextended his right knee which is now painful 2 days ago. Patient denies effusion. Patient also noticed a contusion type wound to the anterior mauricio 2 weeks ago with nonhealing wound which is continuing to be tender. Patient denies significant drainage or erythema. He is not sure how he injured it. Pain in this area is 8 out of 10. Pain behind the knee is approximately 6/10 and worse with ambulation. Patient has allergies to depression medications, codeine, ibuprofen, and warfarin. PFSH Past Medical History Hx Anticoagulant Therapy: Yes (PLAVIX) Arthritis: Yes Depression: Yes Cancer: No Cardiovascular Problems: Yes (AR) Chest Pain: No Diabetes: No (states pre diabetic) Gastrointestinal Disorders: Yes (gerd) Glaucoma: No Headaches: Yes Hepatitis: No Hiatal Hernia: No Hypertension: Yes Neurologic: Yes (seizures) Respiratory: Yes (SLEEP APNEA) Integumentary: No Migraines: Yes Myocardial Infarction: Yes Seizures: Yes Thyroid Disease: No Ulcer: Yes (stomach ulcer in the past) Past Surgical History AICD: Yes Cardiac Surgery: Yes (stent, defib) Joint Replacement: Yes Pacemaker: Yes (DEFIB) Other Surgery: Yes Social History Alcohol Use: Yes Tobacco Use: Yes Substance Use: Yes (marijuana) Allergies-Medications (Allergen,Severity, Reaction): Coded Allergies: warfarin (Unverified Adverse Reaction, Severe, BLEEDING, 04/29/17) codeine (Unverified Adverse Reaction, Intermediate, RASH, 04/29/17) RASH AND NAUSEA ibuprofen (Unverified Adverse Reaction, Intermediate, RASH, 04/29/17) RASH AND VOMITING Uncoded Allergies: DEPRESSION MEDICATIONS (Adverse Reaction, Severe, VOMITING, 08/01/16) Reported Meds & Prescriptions Reported Meds & Active Scripts Active Keflex (Cephalexin) 500 Mg Cap 500 Mg PO Q6H 10 Days Bactrim DS (Sulfamethoxazole-Trimethoprim) 800-160 Mg Tab 1 Tab PO BID 10 Days Ultram (Tramadol HCl) 50 Mg Tab 50 Mg PO Q6H PRN Metoprolol Tartrate 25 Mg Tab 12.5 Mg PO BID Oxycodone-Acetaminophen 5-325 mg Tab 1 Tab PO Q3H PRN Thera M Plus (Multivitamins/Minerals Therapeutic) 1 Tab 1 Tab PO DAILY Dok (Docusate Sodium) 100 Mg Cap 100 Mg PO BID PRN Plavix (Clopidogrel Bisulfate) 75 Mg Tab 75 Mg PO DAILY Amiodarone (Amiodarone HCl) 200 Mg Tab 200 Mg PO Q12HR Reported Tylenol (Acetaminophen) 325 Mg Tab 650 Mg PO Q6H PRN Trazodone (Trazodone HCl) 100 Mg Tablet 100 Mg PO HS Proair Hfa 8.5 GM Inh (Albuterol Sulfate) 90 Mcg/Act Aer 1 Puff INH Q4H PRN 108 mcg/actuation Primidone 50 Mg Tab 200 Mg PO Q6HR Gabapentin 800 Mg Tab 800 Mg PO Q6HR Aspirin Low Dose (Aspirin) 81 Mg Chew 81 Mg CHEW DAILY Pantoprazole (Pantoprazole Sodium) 40 Mg Tab 40 Mg PO DAILY Lisinopril 10 Mg Tab 10 Mg PO DAILY Metoprolol Succinate ER 24 HR (Metoprolol Succinate) 50 Mg Tab 50 Mg PO DAILY Atorvastatin (Atorvastatin Calcium) 80 Mg Tab 80 Mg PO HS Zonisamide 100 Mg Cap 100 Mg PO QID Quetiapine (Quetiapine Fumarate) 300 Mg Tab 300 Mg PO HS Diazepam 2 Mg Tab 2 Mg PO BID PRN Review of Systems Except as stated in HPI: all other systems reviewed are Neg General / Constitutional: No: Fever Eyes: No: Visual changes HENT: No: Headaches Cardiovascular: No: Chest Pain or Discomfort Respiratory: No: Shortness of Breath Gastrointestinal: No: Abdominal Pain Genitourinary: No: Dysuria Musculoskeletal: Positive: Arthralgias, Limited ROM, Pain Skin: No Rash Neurologic: No: Weakness Psychiatric: No: Depression Endocrine: No: Polydipsia Hematologic/Lymphatic: No: Easy Bruising Physical Exam Narrative GENERAL: Patient appears in no obvious distress. SKIN: Warm and dry. Normal color. Normal turgor. Patient has a 6 cm granulating anterior mauricio lesion on the right leg. There is no sign of deep infection or cellulitis. No ecchymosis. No drainage. HEAD: Atraumatic. Normocephalic. EYES: Pupils equal and round. No scleral icterus. No injection or drainage. ENT: No nasal bleeding or discharge. Mucous membranes pink and moist. Pharynx is clear. Airway is patent. NECK: Trachea midline. Supple nontender. CARDIOVASCULAR: Regular rate and rhythm. RESPIRATORY: No accessory muscle use. Clear to auscultation. Breath sounds equal bilaterally. GASTROINTESTINAL: Abdomen soft, non-tender, nondistended. Hepatic and splenic margins not palpable. MUSCULOSKELETAL: Extremities without clubbing, cyanosis, or edema. No obvious deformities. Patient has generalized tenderness on the right knee and along the anterior maruicio with palpation. Range of motion is limited secondary to pain. No obvious is noted in the right knee. No significant effusion is noted. NEUROLOGICAL: Awake and alert. No obvious cranial nerve deficits. Motor grossly within normal limits. Five out of 5 muscle strength in the arms and legs. Normal speech. PSYCHIATRIC: Appropriate mood and affect; insight and judgment normal. Data Data Last Documented VS Vital Signs Date Time Temp Pulse Resp B/P (MAP) Pulse Ox O2 Delivery O2 Flow Rate FiO2 04/29/17 10:41 105 04/29/17 10:38 98.2 16 163/89 (113) 99 Orders Orders Knee, Complete (4vws) (04/29/17 11:14) Tibia/Fibula (Ap/Lat) (04/29/17 11:14) Wound Care (04/29/17 12:15) Splint Or Brace Apply/Monitor (04/29/17 12:15) Crutches (04/29/17 12:15) MDM Medical Decision Making Medical Screen Exam Complete: Yes Emergency Medical Condition: Yes Differential Diagnosis Right knee sprain. Fracture of internal hardware. Anterior mauricio contusion. Narrative Course Patient is stable at time of exam. X-rays of the right knee and mauricio are ordered. X-rays show no acute process per radiologist. Dressing is placed on the anterior mauricio wound by nursing staff. Knee immobilizer and crutches are given to the patient. Patient will be placed on meloxicam 15 mg daily #10. Patient is given Bactroban for the wound twice daily for the next week. Patient is to follow-up with his primary care physician in the next week to 10 days to ensure improvement. Diagnosis Primary Impression: Right knee sprain Qualified Codes: S83.91XA - Sprain of unspecified site of right knee, initial encounter Additional Impression: Injury of right mauricio Qualified Codes: S89.91XA - Unspecified injury of right lower leg, initial encounter Referrals: Primary Care Physician 1 week Patient Instructions: General Instructions Additional Instructions: X-rays show no acute process per radiologist. Dressing is placed on the anterior mauricio wound by nursing staff. Knee immobilizer and crutches are given to the patient. Patient will be placed on meloxicam 15 mg daily #10. Patient is given Bactroban for the wound twice daily for the next week. Patient is to follow-up with his primary care physician in the next week to 10 days to ensure improvement. Med/Other Pt SpecificInfo: Prescription(s) given, Wound Care Scripts Meloxicam (Meloxicam) 15 Mg Tab 15 MG PO DAILY for Arthritis Pain, #10 TAB 0 Refills Prov: Serge Oshea MD 04/29/17 Mupirocin Topical (Bactroban Topical) 22 Gm Cream 1 APPLIC TOPICAL BID for Mgmt Bacterial Infection, #1 TUBE 0 Refills Prov: Serge Oshea MD 04/29/17 Disposition: 01 DISCHARGE HOME Condition: Stable Manuel Stevenson Apr 29, 2017 11:08
--- NOTE | 2017-04-29 11:44 | RADRPT ---
EXAM DATE/TIME: 04/29/2017 11:33 [facility] COMPARISON: No previous studies available for comparison. INDICATIONS : Twisted right knee Ger now painful to weight bear. MEDICAL HISTORY : Osteoarthritis. SURGICAL HISTORY : Total knee replacement, right. ENCOUNTER: Initial ACUITY: 3 days PAIN SCORE: 7/10 LOCATION: Right tibia. FINDINGS: Two view examination of the right tibia demonstrates no evidence of fracture or dislocation. Bony mi neralization is normal. The soft tissue structures are intact. CONCLUSION: Unremarkable examination of the right tibia status post total knee arthroplasty. Evelio Lipscomb MD on April 29, 2017 at 11:41 Board Certified Radiologist. This report was verified electronically.
--- NOTE | 2017-04-29 11:45 | RADRPT ---
EXAM DATE/TIME: 04/29/2017 11:30 [facility] COMPARISON: No previous studies available for comparison. INDICATIONS : Twisted right knee Thursday painful to weight bear or motion. MEDICAL HISTORY : Osteoarthritis. SURGICAL HISTORY : Total knee replacement, right. ENCOUNTER: Initial ACUITY: 1 day PAIN SCORE: 7/10 LOCATION: Right knee FINDINGS: Four view examination of the right knee demonstrates no evidence of fracture or dislocation. Bony mi neralization is normal. The articular surfaces are intact. The suprapatellar soft tissues have a no rmal configuration. CONCLUSION: Unremarkable examination of the right knee status post total knee arthroplasty. Evelio Lipscomb MD on April 29, 2017 at 11:42 Board Certified Radiologist. This report was verified electronically.
[2017-04-29] MEDS ORDERED: MELO15TA20 PO (12:17)
[2017-04-29] MEDS ORDERED: MUPI2%T TOPICAL (12:17)
[2017-04-29] MEDS ORDERED: IBUPROFEN 800 MG TAB PO ONE (12:45)
[2017-04-29] MEDS ORDERED: ACETAMINOPHEN 500 MG CPLT PO ONE (12:45)
== END 2017-04-29 13:42 | disposition home or self-care (01) ==
LOC: NEPD 10:36
DX: S83.91XA Sprain of unspecified site of right knee, initial encounter (principal); S89.91XA Unspecified injury of right lower leg, initial encounter; M19.90 Unspecified osteoarthritis, unspecified site; K21.9 Gastro-esophageal reflux disease without esophagitis; I10 Essential (primary) hypertension; R56.9 Unspecified convulsions; I25.2 Old myocardial infarction; G47.30 Sleep apnea, unspecified; X50.9XXA Other and unspecified overexertion or strenuous movements or postures, initial encounter
CPT/HCPCS: 73564; 73590; 99284; E0113; L1830

== ENCOUNTER 2018-01-30 09:03 | Inpatient (IN) ==
[2018-01-30] MEDS ORDERED: Morphine Inj 4 MG/ML Vial IV.PUSH ONE (09:29)
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
[2018-01-30 09:47] LABS: Baso # (Auto) 0.1 th/mm3 (0.0-0.2); Baso % (Auto) 0.8 % (0.0-2.0); Eos # (Auto) 0.2 th/mm3 (0.0-0.4); Hematocrit 44.3 % (39.0-51.0); Hemoglobin 14.9 gm/dL (13.0-17.0); Lymph # (Auto) 1.7 th/mm3 (1.0-4.8); Mean Corpuscular HGB Conc 33.6 % (32.0-36.0); Mean Corpuscular Hemoglobin 32.4 pg (27.0-34.0); Mean Corpuscular Volume 96.4 fL (80.0-100.0); Mean Platelet Volume 8.1 fL (7.0-11.0); Mono % (Auto) 13.1 % (0.0-8.0); Neut # (Auto) 4.7 th/mm3 (1.8-7.7); Neut % (Auto) 62.1 % (16.0-70.0); Platelet Count 252 th/mm3 (150-450); Red Blood Count 4.59 mil/mm3 (4.50-5.90); Red Cell Distribution Width 16.1 % (11.6-17.2); White Blood Count 7.6 th/mm3 (4.0-11.0)
[2018-01-30 10:06] LABS: Alanine Aminotransferase 58 U/L (12-78); Alkaline Phosphatase 73 U/L (45-117); Total Protein 7.3 g/dL (6.4-8.2)
[2018-01-30 10:11] LABS: Albumin 3.4 g/dL (3.4-5.0); Anion Gap 6 meq/L (5-15); Aspartate Aminotransferase 33 U/L (15-37); Blood Urea Nitrogen 15 mg/dL (7-18); Calcium 8.1 mg/dL (8.5-10.1); Carbon Dioxide 25.9 meq/L (21.0-32.0); Chloride 109 meq/L (98-107); Glomerular Filtration Rate 63 mL/min (>89); Glucose,Random 140 mg/dL (74-106); Potassium 4.4 meq/L (3.5-5.1); Sodium 141 meq/L (136-145)
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
[2018-01-30] MEDS ORDERED: HYDROmorphone PF Inj 2 MG/ML Vial IV.PUSH ONE (10:38)
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
[2018-01-30] MEDS ORDERED: Neostigmine Inj 5 MG/5 ML Syringe IV.PUSH ONE (12:21)
[2018-01-30] MEDS ORDERED: Succinylcholine Inj 100 MG/5 ML Syringe IV.PUSH ONE (12:21)
[2018-01-30] MEDS ORDERED: Normosol-R pH 7.4 Inj 1,000 ML IV.CONT ONE (12:21)
[2018-01-30] MEDS ORDERED: Phenylephrine/NS 1000 MCG/10ML Syringe IV.PUSH ONE (12:21)
[2018-01-30] MEDS ORDERED: Lidocaine PF 1% Inj 5 ML Syringe OTHER ONE (12:21)
[2018-01-30] MEDS ORDERED: Glycopyrrolate Inj 1 MG/5 ML Syringe IV.PUSH ONE (12:21)
[2018-01-30] MEDS ORDERED: fentaNYL Citrate Inj 100 MCG/2 ML Ampul ONE (14:34)
[2018-01-30] MEDS ORDERED: *Enalaprilat Inj 1.25 MG/ML Vial IV.PUSH ONE (15:17)
[2018-01-30] MEDS ORDERED: *Labetalol HCl Inj 100 MG/20 ML Vial PERIprocedural Use ONLY IV.PUSH ONE (15:17)
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
[2018-01-30] MEDS ORDERED: Acetaminophen 325 MG Tablet PO PRN (15:33)
[2018-01-30] MEDS ORDERED: Naloxone Inj 0.4 MG/ML Vial IV.PUSH PRN (15:46)
[2018-01-30] MEDS ORDERED: Morphine Inj 4 MG/ML Vial IV.PUSH PRN (15:46)
[2018-01-30] MEDS: ceFAZolin 2 GM Premix Inj 2 GM/50 ML PIGGYBACK IV.SIG SCH ×2 (16:59→22:14)
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
[2018-01-30] MEDS ORDERED: Dexmedetomidine Inj 200 MCG/2 ML Vial ONE (17:28)
[2018-01-30] MEDS ORDERED: Sugammadex Inj 200 MG/2 ML Vial IV.PUSH ONE (17:28)
--- NOTE | 2018-01-30 19:15 | CT ---
EXAM DATE: 01/30/2018 3:46 PM EDT AGE/SEX: 47 years / Male INDICATIONS: Evaluate fracture. CLINICAL DATA: This is the patient's initial encounter. Patient reports that signs and symptoms have been present for 1 day and indicates a pain score of 10/10. MEDICAL/SURGICAL HISTORY: None. None. RADIATION DOSE: 12.46 CTDI (mGy) COMPARISON: No prior exams available for comparison. TECHNIQUE: Multiple contiguous axial images were acquired using a multirow detector CT scanner witho ut contrast. Multiplanar reconstruction was performed in the sagittal and coronal planes. Using aut omated exposure control and adjustment of the mA and/or kV according to patient size, radiation dose was kept as low as reasonably achievable to obtain optimal diagnostic quality images. DICOM format i mage data is available electronically for review and comparison. FINDINGS: There is a comminuted fracture of the proximal tibia extending into the medial and lateral tibial cody teau and involving the tibial spine. Comminuted fracture extends into the proximal tibial shaft with hemorrhage present within the medullary cavity. There is a lipohemarthrosis at the knee joint. Distal femur appears intact. Trace air within the knee joint. CONCLUSION: 1. Comminuted displaced proximal tibial fracture with lipohemarthrosis at the knee joint and hemorrh age within the marrow cavity of the proximal tibia. Electronically signed by: Petros Montoya MD 01/30/2018 7:14 PM EDT
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
--- NOTE | 2018-01-30 20:01 | XR ---
EXAM DATE: 01/30/2018 12:00 AM EDT AGE/SEX: 47 years / Male INDICATIONS: Left tib/fib XFIX. CLINICAL DATA: This is the patient's initial encounter. Patient reports that signs and symptoms have been present for 1 day and indicates a pain score of Nonresponsive. MEDICAL/SURGICAL HISTORY: None. None. COMPARISON: No prior exams available for comparison. FINDINGS: Multiple spot films reveal external fixation across a comminuted proximal tibial fracture with supply and distribution manager al fixation extending from the femur through the mid tibia. CONCLUSION: External fixation. Electronically signed by: Petros Montoya MD 01/30/2018 8:00 PM EDT
[2018-01-30] MEDS: oxyCODONE/Acetaminophen 10/325 Tablet PO PRN (20:38)
[2018-01-30] MEDS: Morphine Inj 4 MG/ML Vial IV.PUSH PRN (23:59)
[2018-01-31] MEDS: oxyCODONE/Acetaminophen 10/325 Tablet PO PRN ×3 (03:50→17:01)
[2018-01-31] MEDS: ceFAZolin 2 GM Premix Inj 2 GM/50 ML PIGGYBACK IV.SIG SCH (06:08)
[2018-01-31] MEDS: Morphine Inj 4 MG/ML Vial IV.PUSH PRN ×4 (06:50→15:52)
[2018-01-31] MEDS ORDERED: Ranolazine 500 MG 12HR ER Tablet PO SCH (08:00)
[2018-01-31] MEDS ORDERED: diazePAM 2 MG Tablet PO SCH (08:00)
[2018-01-31 08:53] LABS: Baso % (Auto) 0.3 % (0.0-2.0); Eos # (Auto) 0.1 th/mm3 (0.0-0.4); Eos % (Auto) 1.2 % (0.0-4.0); Hematocrit 37.3 % (39.0-51.0); Hemoglobin 12.6 gm/dL (13.0-17.0); Lymph # (Auto) 1.5 th/mm3 (1.0-4.8); Lymph % (Auto) 12.6 % (9.0-44.0); Mean Corpuscular HGB Conc 33.7 % (32.0-36.0); Mean Corpuscular Hemoglobin 32.7 pg (27.0-34.0); Mean Corpuscular Volume 96.9 fL (80.0-100.0); Mean Platelet Volume 8.2 fL (7.0-11.0); Mono # (Auto) 1.6 th/mm3 (0.0-0.9); Mono % (Auto) 13.4 % (0.0-8.0); Neut # (Auto) 8.6 th/mm3 (1.8-7.7); Neut % (Auto) 72.5 % (16.0-70.0); Platelet Count 229 th/mm3 (150-450); Red Blood Count 3.85 mil/mm3 (4.50-5.90); Red Cell Distribution Width 16.6 % (11.6-17.2); White Blood Count 11.8 th/mm3 (4.0-11.0)
[2018-01-31] MEDS ORDERED: Lisinopril 10 MG Tablet PO SCH (09:00)
[2018-01-31 09:29] LABS: Alanine Aminotransferase 50 U/L (12-78); Albumin 3.3 g/dL (3.4-5.0); Alkaline Phosphatase 68 U/L (45-117); Anion Gap 7 meq/L (5-15); Blood Urea Nitrogen 16 mg/dL (7-18); Calcium 7.5 mg/dL (8.5-10.1); Carbon Dioxide 29.4 meq/L (21.0-32.0); Chloride 100 meq/L (98-107); Glomerular Filtration Rate 51 mL/min (>89); Glucose,Random 128 mg/dL (74-106); Sodium 136 meq/L (136-145)
[2018-01-31 09:33] LABS: Aspartate Aminotransferase 75 U/L (15-37); Potassium 4.9 meq/L (3.5-5.1)
[2018-01-31] MEDS: Isosorbide Mononitrate 30 MG ER 24HR Tablet (Imdur) PO SCH (09:36)
[2018-01-31] MEDS: Famotidine 20 MG Tablet PO SCH (09:37)
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
[2018-01-31] MEDS: Gabapentin 400 MG Capsule PO SCH ×3 (11:04→23:32)
[2018-01-31] MEDS: Heparin - SQ 10,000 UNITS/ML Vial SQ SCH ×2 (15:22→21:02)
[2018-01-31] MEDS: LORazepam 0.5 MG Tablet PO SCH ×2 (15:52→23:32)
[2018-01-31] MEDS: Divalproex 500 MG DR Tablet PO SCH (20:39)
[2018-01-31] MEDS: Mirtazapine 15 MG Tablet PO SCH (20:39)
[2018-02-01] MEDS: Gabapentin 400 MG Capsule PO SCH ×3 (05:13→17:06)
[2018-02-01] MEDS: oxyCODONE/Acetaminophen 10/325 Tablet PO PRN ×2 (05:14→11:02)
[2018-02-01] MEDS: Heparin - SQ 10,000 UNITS/ML Vial SQ SCH ×2 (05:14→17:06)
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
[2018-02-01 07:59] LABS: Hematocrit 33.4 % (39.0-51.0); Hemoglobin 11.2 gm/dL (13.0-17.0); Mean Corpuscular HGB Conc 33.5 % (32.0-36.0); Mean Corpuscular Volume 98.4 fL (80.0-100.0); Mean Platelet Volume 8.4 fL (7.0-11.0); Platelet Count 183 th/mm3 (150-450); Red Cell Distribution Width 15.6 % (11.6-17.2); White Blood Count 9.9 th/mm3 (4.0-11.0)
[2018-02-01 08:12] LABS: Alanine Aminotransferase 33 U/L (12-78); Albumin 2.8 g/dL (3.4-5.0); Anion Gap 7 meq/L (5-15); Aspartate Aminotransferase 56 U/L (15-37); Calcium 7.9 mg/dL (8.5-10.1); Carbon Dioxide 28.9 meq/L (21.0-32.0); Chloride 102 meq/L (98-107); Glomerular Filtration Rate 46 mL/min (>89); Glucose,Random 104 mg/dL (74-106); Potassium 4.3 meq/L (3.5-5.1); Sodium 138 meq/L (136-145)
[2018-02-01 08:18] LABS: Alkaline Phosphatase 61 U/L (45-117); Blood Urea Nitrogen 25 mg/dL (7-18); Total Protein 6.2 g/dL (6.4-8.2)
[2018-02-01] MEDS ORDERED: Sodium Chlor 0.9% Inj 500 ML IV.SIG SCH (09:00)
[2018-02-01] MEDS: Divalproex 500 MG DR Tablet PO SCH (09:25)
[2018-02-01] MEDS: LORazepam 0.5 MG Tablet PO SCH ×2 (09:25→16:07)
[2018-02-01] MEDS: Isosorbide Mononitrate 30 MG ER 24HR Tablet (Imdur) PO SCH (09:25)
[2018-02-01] MEDS: Famotidine 20 MG Tablet PO SCH (09:25)
--- NOTE | 2018-02-01 10:58 | P.PNFP ---
Subjective Interval history: Patient seems sleepy and slightly confused this morning when asked about medications. Mumbling his words. Tachycardic with pulse of 106. BP 105/55-112/ 60 overnight (baseline may be higher. Pulse ox 92. No acute events overnight. <Berenice Gordon - 02/01/18 10:58> Results - Labs Result diagrams: 02/01/18 06:48 02/01/18 06:48 <Jose Dumont - 02/01/18 22:09> Abnormal lab results 02/01/18 02/01/18 02/01/18 Range/Units 06:48 06:48 11:30 RBC 3.40 L (4.50-5.90) mil/mm3 Hgb 11.2 L (13.0-17.0) gm/dL Hct 33.4 L (39.0-51.0) % VBG pCO2 49 H (44-48) mmHG VBG pO2 80 H (35-40) mmHG VBG HCO3 27 H (22-26) mmol/L VBG O2 Saturation 93 H (70-76) % VBG Base Excess 2.4 H (-2-2) mmol/L Hemoglobin 11.8 L (12.0-16.0) G/DL BUN 25 H (7-18) mg/dL Creatinine 1.61 H (0.60-1.30) mg/dL Estimated GFR 46 L (>89) mL/min Calcium 7.9 L (8.5-10.1) mg/dL AST 56 H (15-37) U/L Total Protein 6.2 L D (6.4-8.2) g/dL Albumin 2.8 L (3.4-5.0) g/dL Short CBC 02/01/18 Range/Units 06:48 WBC 9.9 (4.0-11.0) th/mm3 Hgb 11.2 L (13.0-17.0) gm/dL Hct 33.4 L (39.0-51.0) % Plt Count 183 (150-450) th/mm3 BMP 02/01/18 06:48 Sodium 138 Potassium 4.3 Chloride 102 Carbon Dioxide 28.9 BUN 25 H Creatinine 1.61 H Calcium 7.9 L Liver Function 02/01/18 Range/Units 06:48 Total Bilirubin 0.3 (0.2-1.0) mg/dL AST 56 H (15-37) U/L ALT 33 (12-78) U/L Alkaline Phosphatase 61 (45-117) U/L Albumin 2.8 L (3.4-5.0) g/dL <Jose Dumont - 02/01/18 22:09> Abnormal lab results 02/01/18 02/01/18 Range/Units 06:48 06:48 RBC 3.40 L (4.50-5.90) mil/mm3 Hgb 11.2 L (13.0-17.0) gm/dL Hct 33.4 L (39.0-51.0) % BUN 25 H (7-18) mg/dL Creatinine 1.61 H (0.60-1.30) mg/dL Estimated GFR 46 L (>89) mL/min Calcium 7.9 L (8.5-10.1) mg/dL AST 56 H (15-37) U/L Total Protein 6.2 L D (6.4-8.2) g/dL Albumin 2.8 L (3.4-5.0) g/dL Short CBC 02/01/18 Range/Units 06:48 WBC 9.9 (4.0-11.0) th/mm3 Hgb 11.2 L (13.0-17.0) gm/dL Hct 33.4 L (39.0-51.0) % Plt Count 183 (150-450) th/mm3 BMP 02/01/18 06:48 Sodium 138 Potassium 4.3 Chloride 102 Carbon Dioxide 28.9 BUN 25 H Creatinine 1.61 H Calcium 7.9 L Liver Function 02/01/18 Range/Units 06:48 Total Bilirubin 0.3 (0.2-1.0) mg/dL AST 56 H (15-37) U/L ALT 33 (12-78) U/L Alkaline Phosphatase 61 (45-117) U/L Albumin 2.8 L (3.4-5.0) g/dL <EvanAguilarBerenice N - 02/01/18 10:58> Physical Exam Vital signs: Vital Signs 02/01/18 00:00 02/01/18 00:06 02/01/18 04:04 Temperature 98.1 F Pulse Rate 108 H 96 H 105 H Respiratory Rate 17 Blood Pressure 116/65 Pulse Oximetry 94 L 02/01/18 04:05 02/01/18 08:00 02/01/18 12:56 Temperature 98.8 F 97.6 F 98.5 F Pulse Rate 107 H 106 H 100 H Respiratory Rate 16 16 18 Blood Pressure 105/55 L 105/59 L 109/67 Pulse Oximetry 92 L 90 L 97 02/01/18 16:53 02/01/18 20:00 Temperature 98.2 F 98.8 F Pulse Rate 90 106 H Respiratory Rate 20 18 Blood Pressure 111/61 105/60 Pulse Oximetry 95 97 Intake & Output 02/01/18 02/01/18 02/02/18 06:59 18:59 06:59 Intake Total 600 / 600 640 / 640 Output Total 950 / 950 1000 / 1000 Balance -350 / -350 -360 / -360 Weight 132.9 kg Intake: Oral 600 / 600 640 / 640 Output: Urine 1000 / 1000 Urine Amount (Catheter) 950 / 950 Indwelling Urethral Catheter 950 / 950 Other: Date of Last Bowel Movement 01/29/18 01/29/18 # Bowel Movements 0 <Jose Dumont - 02/01/18 22:09> Vital Signs 01/31/18 12:00 01/31/18 16:00 01/31/18 20:00 Temperature 98.1 F 97.8 F 98.5 F Pulse Rate 99 H 98 H 102 H Respiratory Rate 20 20 16 Blood Pressure 129/81 133/64 112/60 Pulse Oximetry 94 L 92 L 92 L 01/31/18 20:39 01/31/18 20:55 02/01/18 00:00 Temperature 98.1 F Pulse Rate 104 H 108 H Respiratory Rate 17 Blood Pressure 116/65 Pulse Oximetry 94 L 94 L 02/01/18 00:06 02/01/18 04:04 02/01/18 04:05 Temperature 98.8 F Pulse Rate 96 H 105 H 107 H Respiratory Rate 16 Blood Pressure 105/55 L Pulse Oximetry 92 L 02/01/18 08:00 Temperature 97.6 F Pulse Rate 106 H Respiratory Rate 16 Blood Pressure 105/59 L Pulse Oximetry 90 L Intake & Output 01/31/18 02/01/18 02/01/18 18:59 06:59 18:59 Intake Total 50 / 50 600 / 600 Output Total 600 / 600 950 / 950 Balance -550 / -550 -350 / -350 Weight 132.9 kg Intake: IV 50 / 50 Ancef 2 GM Premix Inj 2 gm In 50 / 50 50 ml @ 100 mls/hr IV.SIG Q8H [facility] Rx#:[id number] Oral 600 / 600 Output: Urine Amount (Catheter) 600 / 600 950 / 950 Indwelling Urethral Catheter 950 / 950 Straight 600 / 600 Other: Date of Last Bowel Movement 01/29/18 01/29/18 01/29/18 <Berenice Gordon N 02/01/18 10:58> Narrative: GENERAL: Obese M appearing pale and sleepy in bed, having trouble concentrating and answering questions. HEAD: Normocephalic. EYES: No injection or drainage. NECK: Supple, trachea midline. CARDIOVASCULAR: Regular rate and rhythm without murmurs, gallops, or rubs. RESPIRATORY: Breath sounds equal bilaterally. CTAB. GASTROINTESTINAL: Abdomen soft, non-tender, nondistended. MUSCULOSKELETAL: Swelling of the left extremity w/mild drainage at the external fixator site, able to move both toes, pulses intact. <Berenice Gordon N 02/01/18 10:58> - Urinary Catheter Management Indwelling Urethral Catheter Cath placed during this visit: no <Jose Dumont - 02/01/18 22:09> yes <Berenice Gordon 02/01/18 10:58> Reason for continuing: Acute urinary retention <Berenice Gordon 02/01/18 10:58 > Insertion date: 01/31/18 <Berenice Gordon 02/01/18 10:58> Insertion time: 16:52 <Berenice Gordon 02/01/18 10:58> Straight Cath placed during this visit: no <Jose Dumont - 02/01/18 22:09> yes, but has since been removed by the nurse <Berenice Gordon 02/01/18 10:58> Reason for continuing: Not indwelling catheter <Berenice Gordon 02/01/18 10:58 > Insertion date: 01/31/18 <Berenice Gordon 02/01/18 10:58> Insertion time: 16:06 <Berenice Gordon 02/01/18 10:58> Removal date: 01/31/18 <Berenice Gordon N - 02/01/18 10:58> Removal time: 16:06 <Berenice Gordon N - 02/01/18 10:58> Assessment and Plan - Assessment (1) TRINO (acute kidney injury) Code(s): N17.9 - Acute kidney failure, unspecified Status: Acute (2) Fracture of tibial plateau, closed Code(s): S82.143A - Displaced bicondylar fracture of unspecified tibia, initial encounter for closed fracture Status: Acute (3) Seizure disorder Code(s): G40.909 - Epilepsy, unspecified, not intractable, without status epilepticus Status: Chronic (4) Coronary artery disease Code(s): I25.10 - Atherosclerotic heart disease of [place] coronary artery without angina pectoris Status: Chronic (5) Chronic kidney disease Code(s): N18.9 - Chronic kidney disease, unspecified Status: Chronic (6) Hypertension Code(s): I10 - Essential (primary) hypertension Status: Chronic (7) Hyperlipidemia Code(s): E78.5 - Hyperlipidemia, unspecified Status: Chronic (8) ELLA (obstructive sleep apnea) Code(s): G47.33 - Obstructive sleep apnea (adult) (pediatric) Status: Acute (9) Nutrition, metabolism, and development symptoms Code(s): R63.8 - Other symptoms and signs concerning food and fluid intake Status: Acute (10) DVT prophylaxis Status: Acute <Jose Dumont - 02/01/18 22:09> (1) TRINO (acute kidney injury) Code(s): N17.9 - Acute kidney failure, unspecified Status: Acute Plan: BUN 25, Creatinine 1.6 Continue to monitor, provide half a liter NS bolus and avoid nephrotoxic medications (2) Fracture of tibial plateau, closed Code(s): S82.143A - Displaced bicondylar fracture of unspecified tibia, initial encounter for closed fracture Status: Acute Plan: Postop day #1 status post manual reduction and external fixator placement Pain control: Tylenol 650 mg PO q4hr PRN pain scale 1-2 Ocycodone 5/325 mg q6hr PRN pain scale 3-5 Ocycodone 10/325 mg q6hr PRN pain scale 6-10 Morphine 4 mg IV q4hr PRN for breakthrough pain Morphine 4mg IV q1hr PRN for intractable pain PT consulted, recommend home health care Case management consulted Continue neurovascular checks Orthopedics following: due to LE swelling, plan for OR in 4-7 days (3) Seizure disorder Code(s): G40.909 - Epilepsy, unspecified, not intractable, without status epilepticus Status: Chronic Plan: Depakote 500 BID Ativan 0.5 mg TID (4) Coronary artery disease Code(s): I25.10 - Atherosclerotic heart disease of [place] coronary artery without angina pectoris Status: Chronic Plan: Continue Imdur, lisinopril, metoprolol Continue atorvastatin (5) Chronic kidney disease Code(s): N18.9 - Chronic kidney disease, unspecified Status: Chronic Plan: Stable: Avoid nephrotoxic agents (6) Hypertension Code(s): I10 - Essential (primary) hypertension Status: Chronic Plan: Continue home medications (7) Hyperlipidemia Code(s): E78.5 - Hyperlipidemia, unspecified Status: Chronic Plan: Continue home atorvastatin (8) ELLA (obstructive sleep apnea) Code(s): G47.33 - Obstructive sleep apnea (adult) (pediatric) Status: Acute Plan: Family contacted to bring CPAP from home for use overnight. (9) Nutrition, metabolism, and development symptoms Code(s): R63.8 - Other symptoms and signs concerning food and fluid intake Status: Acute Plan: Insomnia: Mirtazapine 15 mg PO HS Will get in touch w/family to ascertain why patient is taking Seroquel and Lexapro Fluids: Based on vitals and renal function this morning, will give half a liter bolus normal saline. Electrolytes: No electrolyte abnomalities noted. Will continue to monitor and repeat as needed. Diet: Cardiac Diet GI prophy: Protonix (10) DVT prophylaxis Status: Acute Plan: DVT prophylaxis: Heparin prophylaxis, avoid Lovanox due to kidney function SCD and compression hose to non-operative leg <Berenice Gordon - 02/01/18 10:33> - Attending Attestation e discussed with resident physicians. I have read the above note and agree with the assessment and plan as discussed with me. I was involved in all medical decision making for this patient. Jose Dumont MD <Jose Dumont - 02/01/18 22:09>
[2018-02-01 11:41] LABS: VBG Base Excess 2.4 mmol/L (-2-2); VBG Blood Gas Oxygen Content 15.5 Vol % (9.0-17.0); VBG PCO2 49 mmHG (44-48); VBG PH 7.36 (7.360-7.400); VBG PO2 80 mmHG (35-40)
[2018-02-02] MEDS: Heparin - SQ 10,000 UNITS/ML Vial SQ SCH ×4 (00:14→21:18)
[2018-02-02] MEDS: Mirtazapine 15 MG Tablet PO SCH ×2 (00:14→21:18)
[2018-02-02] MEDS: Divalproex 500 MG DR Tablet PO SCH ×4 (00:14→21:18)
[2018-02-02] MEDS: LORazepam 0.5 MG Tablet PO SCH ×5 (00:14→23:41)
[2018-02-02] MEDS: Gabapentin 400 MG Capsule PO SCH ×6 (00:15→23:41)
[2018-02-02] MEDS: oxyCODONE/Acetaminophen 10/325 Tablet PO PRN ×4 (03:35→23:53)
--- NOTE | 2018-02-02 06:35 | P.PNOP ---
Subjective Interval history: Resting comfortably with no new complaints. He does have some mild confusion. Physical Exam Vital signs: Vital Signs 02/01/18 08:00 02/01/18 12:56 02/01/18 16:53 Temperature 97.6 F 98.5 F 98.2 F Pulse Rate 106 H 100 H 90 Respiratory Rate 16 18 20 Blood Pressure 105/59 L 109/67 111/61 Pulse Oximetry 90 L 97 95 02/01/18 20:00 02/01/18 23:30 02/02/18 00:00 Temperature 98.8 F 98.1 F Pulse Rate 106 H 105 H Respiratory Rate 18 18 18 Blood Pressure 105/60 109/59 L Pulse Oximetry 97 96 02/02/18 04:00 Temperature 98.8 F Pulse Rate 115 H Respiratory Rate 18 Blood Pressure 129/73 Pulse Oximetry 98 Intake & Output 02/01/18 02/01/18 02/02/18 06:59 18:59 06:59 Intake Total 600 / 600 640 / 640 Output Total 950 / 950 1000 / 1000 825 / 825 Balance -350 / -350 -360 / -360 -825 / -825 Weight 132.9 kg 132.4 kg Intake: Oral 600 / 600 640 / 640 Output: Urine 1000 / 1000 Urine Amount (Catheter) 950 / 950 825 / 825 Indwelling Urethral Catheter 950 / 950 825 / 825 Other: Date of Last Bowel Movement 01/29/18 01/29/18 # Bowel Movements 0 Narrative: Left lower extremity: External fixator in place. Swelling and bruising to calf and knee. Swelling of +3. Semi-soft compartments. Intact sensation distally with active dorsiflexion and plantar flexion of foot. - Urinary Catheter Management Straight Cath placed during this visit: yes, but has since been removed by the nurse Reason for continuing: Not indwelling catheter Insertion date: 01/31/18 Insertion time: 16:06 Removal date: 01/31/18 Removal time: 16:06 Indwelling Urethral Catheter Cath placed during this visit: yes Reason for continuing: Acute urinary retention Insertion date: 01/31/18 Insertion time: 16:52 Results - Labs CBC & Chem 7: 02/01/18 06:48 02/01/18 06:48 Laboratory Results - last 24 hr 10/22/18 10/22/18 10/22/18 06:48 06:48 11:30 WBC 9.9 RBC 3.40 L Hgb 11.2 L Hct 33.4 L MCV 98.4 MCH 33.0 MCHC 33.5 RDW 15.6 Plt Count 183 MPV 8.4 Puncture Site Line Patient Temperature 98.6 VBG pH 7.36 VBG pCO2 49 H VBG pO2 80 H VBG HCO3 27 H VBG O2 Saturation 93 H VBG O2 Content 15.5 VBG Base Excess 2.4 H VBG Carboxyhemoglobin 1.7 VBG Methemoglobin 1.2 Hemoglobin 11.8 L O2 Delivery Device Nasal cannula Liter Flow 2.00 Critical Value No Sodium 138 Potassium 4.3 Chloride 102 Carbon Dioxide 28.9 Anion Gap 7 BUN 25 H Creatinine 1.61 H Estimated GFR 46 L Random Glucose 104 Calcium 7.9 L Total Bilirubin 0.3 AST 56 H ALT 33 Alkaline Phosphatase 61 Ammonia Total Protein 6.2 L D Albumin 2.8 L 02/01/18 11:32 WBC RBC Hgb Hct MCV MCH MCHC RDW Plt Count MPV Puncture Site Patient Temperature VBG pH VBG pCO2 VBG pO2 VBG HCO3 VBG O2 Saturation VBG O2 Content VBG Base Excess VBG Carboxyhemoglobin VBG Methemoglobin Hemoglobin O2 Delivery Device Liter Flow Critical Value Sodium Potassium Chloride Carbon Dioxide Anion Gap BUN Creatinine Estimated GFR Random Glucose Calcium Total Bilirubin AST ALT Alkaline Phosphatase Ammonia 31 Total Protein Albumin Assessment and Plan - Assessment and Plan Left tibial plateau fracture status post external fixation and reduction Nonweightbearing left lower extremity. Elevation and ice Pin care twice daily Bacitracin to all abrasions It will be 4-7 days before surgery will be able to be completed due to swelling Lovenox Incentive spirometry
[2018-02-02] MEDS: Famotidine 20 MG Tablet PO SCH ×2 (07:54→11:57)
[2018-02-02] MEDS: Isosorbide Mononitrate 30 MG ER 24HR Tablet (Imdur) PO SCH ×2 (07:54→11:58)
[2018-02-02 09:27] LABS: Carbon Dioxide 28.5 meq/L (21.0-32.0); Potassium 4.5 meq/L (3.5-5.1)
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
[2018-02-02 12:41] LABS: Creatine Kinase 1562 U/L (39-308)
[2018-02-02 12:54] LABS: CKMB Percent 0.3 % (0.0-4.0); Creatine Kinase MB 4.3 ng/mL (0.5-3.6)
[2018-02-03] MEDS: Gabapentin 400 MG Capsule PO SCH ×3 (05:00→17:11)
[2018-02-03] MEDS: Heparin - SQ 10,000 UNITS/ML Vial SQ SCH ×3 (05:00→22:00)
[2018-02-03 05:08] LABS: Hematocrit 33.6 % (39.0-51.0); Hemoglobin 11.3 gm/dL (13.0-17.0); Mean Corpuscular HGB Conc 33.7 % (32.0-36.0); Mean Corpuscular Hemoglobin 32.8 pg (27.0-34.0); Mean Corpuscular Volume 97.2 fL (80.0-100.0); Mean Platelet Volume 8.2 fL (7.0-11.0); Platelet Count 222 th/mm3 (150-450); Red Blood Count 3.46 mil/mm3 (4.50-5.90); Red Cell Distribution Width 15.9 % (11.6-17.2); White Blood Count 6.5 th/mm3 (4.0-11.0)
[2018-02-03 05:38] LABS: Alanine Aminotransferase 33 U/L (12-78); Albumin 2.4 g/dL (3.4-5.0); Anion Gap 4 meq/L (5-15); Aspartate Aminotransferase 44 U/L (15-37); Blood Urea Nitrogen 21 mg/dL (7-18); Calcium 8.1 mg/dL (8.5-10.1); Carbon Dioxide 30.7 meq/L (21.0-32.0); Chloride 105 meq/L (98-107); Glomerular Filtration Rate 80 mL/min (>89); Glucose,Random 85 mg/dL (74-106); Potassium 4.2 meq/L (3.5-5.1); Sodium 140 meq/L (136-145)
[2018-02-03 05:40] LABS: Alkaline Phosphatase 88 U/L (45-117); Total Protein 6.6 g/dL (6.4-8.2)
--- NOTE | 2018-02-03 07:53 | P.PNOP ---
Subjective Interval history: Some confusion. Resting comfortably Physical Exam Vital signs: Vital Signs 02/02/18 08:00 02/02/18 10:00 02/02/18 12:00 Temperature 98.1 F 98.1 F Pulse Rate 105 H 102 H Respiratory Rate 18 17 18 Blood Pressure 144/73 H 144/83 H Pulse Oximetry 92 L 95 02/02/18 14:34 02/02/18 16:00 02/02/18 16:26 Temperature 98.4 F Pulse Rate 98 H Respiratory Rate 16 18 16 Blood Pressure 133/93 H Pulse Oximetry 95 02/02/18 19:00 02/02/18 20:00 02/02/18 21:22 Temperature 98.5 F Pulse Rate 88 101 H Respiratory Rate 17 18 Blood Pressure 128/69 Pulse Oximetry 96 02/02/18 23:44 02/03/18 05:00 Temperature 97.8 F 98.3 F Pulse Rate 97 H 111 H Respiratory Rate 18 18 Blood Pressure 149/79 H 126/85 Pulse Oximetry 97 96 Intake & Output 02/02/18 02/03/18 02/03/18 18:59 06:59 18:59 Intake Total 600 / 600 360 / 360 Output Total 825 / 825 1000 / 1000 Balance -225 / -225 -640 / -640 Weight 132.4 kg Intake: Oral 600 / 600 360 / 360 Output: Urine 825 / 825 Urine Amount (Catheter) 1000 / 1000 Indwelling Urethral Catheter 1000 / 1000 Other: Date of Last Bowel Movement 01/29/18 # Bowel Movements 0 Narrative: Left lower extremity: External fixator in place. Clean dry dressings intact. Bacitracin over abrasions. Swelling of +3 compartments semi-soft. Distally intact sensation with active dorsiflexion plantarflexion of foot - Urinary Catheter Management Straight Cath placed during this visit: yes, but has since been removed by the nurse Reason for continuing: Not indwelling catheter Insertion date: 01/31/18 Insertion time: 16:06 Removal date: 01/31/18 Removal time: 16:06 Indwelling Urethral Catheter Cath placed during this visit: yes Reason for continuing: Acute urinary retention Insertion date: 01/31/18 Insertion time: 16:52 Results - Labs CBC & Chem 7: 02/03/18 03:42 02/03/18 03:42 Laboratory Results - last 24 hr 02/02/18 02/02/18 02/03/18 08:35 11:18 03:42 WBC 6.5 RBC 3.46 L Hgb 11.3 L Hct 33.6 L MCV 97.2 MCH 32.8 MCHC 33.7 RDW 15.9 Plt Count 222 MPV 8.2 Sodium 137 Potassium 4.5 Chloride 103 Carbon Dioxide 28.5 Anion Gap 6 BUN 21 H Creatinine 1.15 Estimated GFR 68 L Random Glucose 112 H Calcium 8.0 L Total Bilirubin AST ALT Alkaline Phosphatase Total Creatine Kinase 1562 H CK-MB (CK-2) 4.3 H CK-MB (CK-2) % 0.3 Troponin I Less than 0.02 L Total Protein Albumin 02/03/18 03:42 WBC RBC Hgb Hct MCV MCH MCHC RDW Plt Count MPV Sodium 140 Potassium 4.2 Chloride 105 Carbon Dioxide 30.7 Anion Gap 4 L BUN 21 H Creatinine 1.00 Estimated GFR 80 L Random Glucose 85 Calcium 8.1 L Total Bilirubin 0.3 AST 44 H ALT 33 Alkaline Phosphatase 88 Total Creatine Kinase CK-MB (CK-2) CK-MB (CK-2) % Troponin I Total Protein 6.6 Albumin 2.4 L Assessment and Plan - Assessment and Plan Left tibial plateau fracture status post external fixation and reduction Nonweightbearing left lower extremity. Elevation and ice Pin care twice daily Bacitracin to all abrasions It will be 4-7 days before surgery will be able to be completed due to swelling. Swelling to great right now Lovenox Incentive spirometry
[2018-02-03] MEDS: Divalproex 500 MG DR Tablet PO SCH ×2 (08:29→22:00)
[2018-02-03] MEDS: LORazepam 0.5 MG Tablet PO SCH ×2 (08:30→16:42)
[2018-02-03] MEDS: Famotidine 20 MG Tablet PO SCH (08:30)
[2018-02-03] MEDS: Isosorbide Mononitrate 30 MG ER 24HR Tablet (Imdur) PO SCH (08:31)
[2018-02-03] MEDS: oxyCODONE/Acetaminophen 10/325 Tablet PO PRN ×2 (10:13→16:42)
--- NOTE | 2018-02-03 11:01 | P.PNFP ---
Subjective Interval history: No problems or complaints. Denies chest pain and SOB. Richardson is still in, draining clear urine. Did not use CPAP overnight. <Berenice Gordon N - 02/03/18 22:40> Results - Labs Result diagrams: 02/03/18 03:42 02/03/18 03:42 <Jose Dumont - 02/03/18 22:44> Abnormal lab results 02/03/18 02/03/18 Range/Units 03:42 03:42 RBC 3.46 L (4.50-5.90) mil/mm3 Hgb 11.3 L (13.0-17.0) gm/dL Hct 33.6 L (39.0-51.0) % Anion Gap 4 L (5-15) meq/L BUN 21 H (7-18) mg/dL Estimated GFR 80 L (>89) mL/min Calcium 8.1 L (8.5-10.1) mg/dL AST 44 H (15-37) U/L Albumin 2.4 L (3.4-5.0) g/dL Short CBC 02/03/18 Range/Units 03:42 WBC 6.5 (4.0-11.0) th/mm3 Hgb 11.3 L (13.0-17.0) gm/dL Hct 33.6 L (39.0-51.0) % Plt Count 222 (150-450) th/mm3 BMP 02/03/18 03:42 Sodium 140 Potassium 4.2 Chloride 105 Carbon Dioxide 30.7 BUN 21 H Creatinine 1.00 Calcium 8.1 L Liver Function 02/03/18 Range/Units 03:42 Total Bilirubin 0.3 (0.2-1.0) mg/dL AST 44 H (15-37) U/L ALT 33 (12-78) U/L Alkaline Phosphatase 88 (45-117) U/L Albumin 2.4 L (3.4-5.0) g/dL <Jose Dumont - 02/03/18 22:44> Abnormal lab results 02/02/18 02/03/18 02/03/18 Range/Units 11:18 03:42 03:42 RBC 3.46 L (4.50-5.90) mil/mm3 Hgb 11.3 L (13.0-17.0) gm/dL Hct 33.6 L (39.0-51.0) % Anion Gap 4 L (5-15) meq/L BUN 21 H (7-18) mg/dL Estimated GFR 80 L (>89) mL/min Calcium 8.1 L (8.5-10.1) mg/dL AST 44 H (15-37) U/L Total Creatine Kinase 1562 H (39-308) U/L CK-MB (CK-2) 4.3 H (0.5-3.6) ng/mL Troponin I Less than 0.02 L (0.02-0.05) ng/mL Albumin 2.4 L (3.4-5.0) g/dL Short CBC 02/03/18 Range/Units 03:42 WBC 6.5 (4.0-11.0) th/mm3 Hgb 11.3 L (13.0-17.0) gm/dL Hct 33.6 L (39.0-51.0) % Plt Count 222 (150-450) th/mm3 BMP 02/03/18 03:42 Sodium 140 Potassium 4.2 Chloride 105 Carbon Dioxide 30.7 BUN 21 H Creatinine 1.00 Calcium 8.1 L Cardiac Enzymes 02/02/18 Range/Units 11:18 Total Creatine Kinase 1562 H (39-308) U/L CK-MB (CK-2) 4.3 H (0.5-3.6) ng/mL Troponin I Less than 0.02 L (0.02-0.05) ng/mL Liver Function 02/03/18 Range/Units 03:42 Total Bilirubin 0.3 (0.2-1.0) mg/dL AST 44 H (15-37) U/L ALT 33 (12-78) U/L Alkaline Phosphatase 88 (45-117) U/L Albumin 2.4 L (3.4-5.0) g/dL <Berenice Gordno - 02/03/18 11:01> Physical Exam Vital signs: Vital Signs 02/02/18 23:44 02/03/18 05:00 02/03/18 08:00 Temperature 97.8 F 98.3 F 97.9 F Pulse Rate 97 H 111 H 103 H Respiratory Rate 18 18 18 Blood Pressure 149/79 H 126/85 149/66 H Pulse Oximetry 97 96 95 02/03/18 12:00 02/03/18 15:57 02/03/18 20:54 Temperature 98.2 F 98.6 F Pulse Rate 101 H 97 H Respiratory Rate 18 18 Blood Pressure 144/59 H 122/67 Pulse Oximetry 96 96 96 Intake & Output 02/03/18 02/03/18 02/04/18 06:59 18:59 06:59 Intake Total 360 / 360 1200 / 1200 Output Total 1000 / 1000 125 / 125 Balance -640 / -640 1075 / 1075 Weight 132.4 kg Intake: Oral 360 / 360 1200 / 1200 Output: Urine 125 / 125 Urine Amount (Catheter) 1000 / 1000 Indwelling Urethral Catheter 1000 / 1000 Other: # Voids 1 Date of Last Bowel Movement 02/02/18 # Bowel Movements 0 0 <Jose Dumont - 02/03/18 22:44> Vital Signs 02/02/18 12:00 02/02/18 14:34 02/02/18 16:00 Temperature 98.1 F 98.4 F Pulse Rate 102 H 98 H Respiratory Rate 18 16 18 Blood Pressure 144/83 H 133/93 H Pulse Oximetry 95 95 02/02/18 16:26 02/02/18 19:00 02/02/18 20:00 Temperature Pulse Rate 88 Respiratory Rate 16 17 Blood Pressure Pulse Oximetry 02/02/18 21:22 02/02/18 23:44 02/03/18 05:00 Temperature 98.5 F 97.8 F 98.3 F Pulse Rate 101 H 97 H 111 H Respiratory Rate 18 18 18 Blood Pressure 128/69 149/79 H 126/85 Pulse Oximetry 96 97 96 02/03/18 08:00 Temperature 97.9 F Pulse Rate 103 H Respiratory Rate 18 Blood Pressure 149/66 H Pulse Oximetry 95 Intake & Output 02/02/18 02/03/18 02/03/18 18:59 06:59 18:59 Intake Total 600 / 600 360 / 360 Output Total 825 / 825 1000 / 1000 Balance -225 / -225 -640 / -640 Weight 132.4 kg Intake: Oral 600 / 600 360 / 360 Output: Urine 825 / 825 Urine Amount (Catheter) 1000 / 1000 Indwelling Urethral Catheter 1000 / 1000 Other: Date of Last Bowel Movement 01/29/18 02/02/18 # Bowel Movements 0 <Berenice Gordon N - 02/03/18 11:01> Narrative: GENERAL: Obese M appearing sleepy in bed. HEAD: Normocephalic. EYES: No injection or drainage. NECK: Supple, trachea midline. CARDIOVASCULAR: Regular rate and rhythm without murmurs, gallops, or rubs. RESPIRATORY: Breath sounds equal bilaterally. CTAB. GASTROINTESTINAL: Abdomen soft, non-tender, nondistended. MUSCULOSKELETAL: Swelling of the left extremity w/mild drainage at the external fixator site, able to move both toes, pulses intact. <AbidBerenice 02/03/18 22:40> - Urinary Catheter Management Indwelling Urethral Catheter Cath placed during this visit: no <Jose Dumont - 02/03/18 22:44> yes <AbidBerenice N 02/03/18 22:40> Reason for continuing: Acute urinary retention <AbidBerenice N 02/03/18 11:01 > Insertion date: 01/31/18 <AbidBerenice N 02/03/18 11:01> Insertion time: 16:52 <Abid,Berenice N 02/03/18 11:01> Straight Cath placed during this visit: no <Jose Dumont - 02/03/18 22:44> yes, but has since been removed by the nurse <[email or web address] 02/03/18 22:40> Reason for continuing: Not indwelling catheter <AbidBerenice N 02/03/18 11:01 > Insertion date: 01/31/18 <Abid,Berenice N 02/03/18 11:01> Insertion time: 16:06 <AbidAguilarBerenice N 02/03/18 11:01> Removal date: 01/31/18 <Abid,Berenice N - 02/03/18 11:01> Removal time: 16:06 <Abid,Berenice N 02/03/18 11:01> Assessment and Plan - Assessment (1) Postoperative urinary retention Code(s): N99.89 - Other postprocedural complications and disorders of genitourinary system; R33.8 - Other retention of urine Status: Acute (2) Fracture of tibial plateau, closed Code(s): S82.143A - Displaced bicondylar fracture of unspecified tibia, initial encounter for closed fracture Status: Acute (3) TRINO (acute kidney injury) Code(s): N17.9 - Acute kidney failure, unspecified Status: Acute (4) Seizure disorder Code(s): G40.909 - Epilepsy, unspecified, not intractable, without status epilepticus Status: Chronic (5) Coronary artery disease Code(s): I25.10 - Atherosclerotic heart disease of [place] coronary artery without angina pectoris Status: Chronic (6) Hypertension Code(s): I10 - Essential (primary) hypertension Status: Chronic (7) Hyperlipidemia Code(s): E78.5 - Hyperlipidemia, unspecified Status: Chronic (8) ELLA (obstructive sleep apnea) Code(s): G47.33 - Obstructive sleep apnea (adult) (pediatric) Status: Acute (9) Bipolar disorder Code(s): F31.9 - Bipolar disorder, unspecified Status: Acute (10) Nutrition, metabolism, and development symptoms Code(s): R63.8 - Other symptoms and signs concerning food and fluid intake Status: Acute (11) DVT prophylaxis Status: Acute <Jose Dumont - 02/03/18 22:44> (1) Postoperative urinary retention Code(s): N99.89 - Other postprocedural complications and disorders of genitourinary system; R33.8 - Other retention of urine Status: Acute Plan: Richardson in post-op due to urinary retention Has hx x1 Voiding trials to dc cath (2) Fracture of tibial plateau, closed Code(s): S82.143A - Displaced bicondylar fracture of unspecified tibia, initial encounter for closed fracture Status: Acute Plan: Postop day #4 status post manual reduction and external fixator placement Pain well controlled with: Tylenol 650 mg PO q4hr PRN pain scale 1-2 Ocycodone 5/325 mg q6hr PRN pain scale 3-5 Ocycodone 10/325 mg q6hr PRN pain scale 6-10 Morphine 4 mg IV q4hr PRN for breakthrough pain Morphine 4mg IV q1hr PRN for intractable pain PT consulted, recommend home health care Case management consulted Continue neurovascular checks Orthopedics following: due to LE swelling, plan for OR next week. (3) TRINO (acute kidney injury) Code(s): N17.9 - Acute kidney failure, unspecified Status: Acute Plan: Resolved. (4) Seizure disorder Code(s): G40.909 - Epilepsy, unspecified, not intractable, without status epilepticus Status: Chronic Plan: Depakote 500 BID Ativan 0.5 mg TID (5) Coronary artery disease Code(s): I25.10 - Atherosclerotic heart disease of [place] coronary artery without angina pectoris Status: Chronic Plan: Continue Imdur, metropolol and atorvastatin Lisinopril held due to [place] I. (6) Hypertension Code(s): I10 - Essential (primary) hypertension Status: Chronic Plan: Continue home medications (7) Hyperlipidemia Code(s): E78.5 - Hyperlipidemia, unspecified Status: Chronic Plan: Continue home atorvastatin (8) ELLA (obstructive sleep apnea) Code(s): G47.33 - Obstructive sleep apnea (adult) (pediatric) Status: Acute Plan: Family contacted to bring CPAP from home for use overnight, however patient has not brought it in yet. CPAP trial per respiratory. (9) Bipolar disorder Code(s): F31.9 - Bipolar disorder, unspecified Status: Acute Plan: Con't Remeron, seroquel, and lexapro (10) Nutrition, metabolism, and development symptoms Code(s): R63.8 - Other symptoms and signs concerning food and fluid intake Status: Acute Plan: Insomnia: Mirtazapine 15 mg PO HS Will get in touch w/family to ascertain why patient is taking Seroquel and Lexapro. Fluids: Based on vitals and renal function this morning, will give half a liter bolus normal saline. Electrolytes: No electrolyte abnomalities noted. Will continue to monitor and repeat as needed. Diet: Cardiac Diet GI prophy: Protonix (11) DVT prophylaxis Status: Acute Plan: DVT prophylaxis: Heparin prophylaxis, avoid Lovanox due to kidney function SCD and compression hose to non-operative leg <Berenice Gordon - 02/03/18 22:33> - Assessment and Plan Pt. examined and case discussed with resident physicians. I have read the above note and agree with the assessment and plan as discussed with me. I was involved in all medical decision making for this patient. Jose Dumont MD <Berenice Gordon - 02/03/18 11:01> - Attending Attestation Pt. examined and case discussed with resident physicians. I have read the above note and agree with the assessment and plan as discussed with me. I was involved in all medical decision making for this patient. Jose Dumont MD <Jose Dumont - 02/03/18 22:44>
[2018-02-03] MEDS: Morphine Inj 4 MG/ML Vial IV.PUSH PRN ×2 (11:48→21:59)
[2018-02-03] MEDS: Mirtazapine 15 MG Tablet PO SCH (22:00)
--- NOTE | 2018-02-04 01:12 | ECG ---
Date Performed: 02/02/2018 Time Performed: 10:47:00 PTAGE: 47 years EKG: Sinus rhythm POSSIBLE ANTERIOR MYOCARDIAL INFARCTION , OF INDETERMINATE AGE ABNORMAL ECG PREVIOUS TRACING : 11/25/2017 11.38 Since the previous tracing, no significant change noted DOCTOR: Colby Alvarado Interpretating Date/Time 02/04/2018 01:11:01
[2018-02-04] MEDS: Gabapentin 400 MG Capsule PO SCH ×5 (01:18→23:58)
[2018-02-04] MEDS: LORazepam 0.5 MG Tablet PO SCH ×4 (01:18→23:59)
[2018-02-04] MEDS: oxyCODONE/Acetaminophen 10/325 Tablet PO PRN ×3 (03:19→20:16)
[2018-02-04 04:53] LABS: Baso # (Auto) 0.1 th/mm3 (0.0-0.2); Baso % (Auto) 0.7 % (0.0-2.0); Eos # (Auto) 0.2 th/mm3 (0.0-0.4); Eos % (Auto) 2.5 % (0.0-4.0); Hematocrit 33.5 % (39.0-51.0); Hemoglobin 11.4 gm/dL (13.0-17.0); Lymph # (Auto) 1.6 th/mm3 (1.0-4.8); Lymph % (Auto) 20.3 % (9.0-44.0); Mean Corpuscular HGB Conc 34.1 % (32.0-36.0); Mean Corpuscular Hemoglobin 32.9 pg (27.0-34.0); Mean Corpuscular Volume 96.4 fL (80.0-100.0); Mean Platelet Volume 7.9 fL (7.0-11.0); Mono # (Auto) 1.2 th/mm3 (0.0-0.9); Mono % (Auto) 16.1 % (0.0-8.0); Neut # (Auto) 4.6 th/mm3 (1.8-7.7); Neut % (Auto) 60.4 % (16.0-70.0); Platelet Count 231 th/mm3 (150-450); Red Blood Count 3.48 mil/mm3 (4.50-5.90); Red Cell Distribution Width 15.8 % (11.6-17.2); White Blood Count 7.7 th/mm3 (4.0-11.0)
[2018-02-04] MEDS: Heparin - SQ 10,000 UNITS/ML Vial SQ SCH ×3 (06:18→22:13)
--- NOTE | 2018-02-04 06:37 | P.PNOP ---
Subjective Interval history: s/p exfix left tibial plateau doing well. no changes Physical Exam Vital signs: Vital Signs 02/03/18 08:00 02/03/18 12:00 02/03/18 15:57 Temperature 97.9 F 98.2 F 98.6 F Pulse Rate 103 H 101 H 97 H Respiratory Rate 18 18 18 Blood Pressure 149/66 H 144/59 H 122/67 Pulse Oximetry 95 96 96 02/03/18 19:00 02/03/18 20:10 02/03/18 20:54 Temperature 98.7 F Pulse Rate 98 H 94 H Respiratory Rate 18 Blood Pressure 122/69 Pulse Oximetry 95 96 02/04/18 00:00 02/04/18 00:04 02/04/18 03:16 Temperature 97.4 F L 98.5 F Pulse Rate 95 H 112 H 110 H Respiratory Rate 19 18 Blood Pressure 140/88 133/77 Pulse Oximetry 92 L 93 L 02/04/18 04:02 Temperature Pulse Rate 107 H Respiratory Rate Blood Pressure Pulse Oximetry Intake & Output 02/03/18 02/03/18 02/04/18 06:59 18:59 06:59 Intake Total 360 / 360 1200 / 1200 480 / 480 Output Total 1000 / 1000 125 / 125 650 / 650 Balance -640 / -640 1075 / 1075 -170 / -170 Weight 132.4 kg 132.4 kg Intake: Oral 360 / 360 1200 / 1200 480 / 480 Output: Urine 125 / 125 650 / 650 Urine Amount (Catheter) 1000 / 1000 Indwelling Urethral Catheter 1000 / 1000 Other: # Voids 1 Date of Last Bowel Movement 02/02/18 02/02/18 # Bowel Movements 0 0 0 Narrative: LLE: pin sites clean and dry. intact. NVI. 2+ swelling of lower leg. compartments soft - Urinary Catheter Management Straight Cath placed during this visit: yes, but has since been removed by the nurse Reason for continuing: Not indwelling catheter Insertion date: 01/31/18 Insertion time: 16:06 Removal date: 01/31/18 Removal time: 16:06 Indwelling Urethral Catheter Cath placed during this visit: yes, but has since been removed by the nurse Reason for continuing: Acute urinary retention Insertion date: 01/31/18 Insertion time: 16:52 Removal date: 02/03/18 Removal time: 10:50 Results - Labs CBC & Chem 7: 10/25/18 04:07 02/03/18 03:42 Laboratory Results - last 24 hr 02/04/18 04:07 WBC 7.7 RBC 3.48 L Hgb 11.4 L Hct 33.5 L MCV 96.4 MCH 32.9 MCHC 34.1 RDW 15.8 Plt Count 231 MPV 7.9 Neut % (Auto) 60.4 Lymph % (Auto) 20.3 Levy % (Auto) 16.1 H Eos % (Auto) 2.5 Baso % (Auto) 0.7 Neut # (Auto) 4.6 Lymph # (Auto) 1.6 Levy # (Auto) 1.2 H Eos # (Auto) 0.2 Baso # (Auto) 0.1 WBC Differential . Differential Comment Auto diff final Assessment and Plan - Assessment and Plan Left tibial plateau fracture status post external fixation and reduction Nonweightbearing left lower extremity. Elevation and ice Pin care twice daily Bacitracin to all abrasions swelling still not appropriate. will be at least next week before ready for surgery Lovenox Incentive spirometry
[2018-02-04] MEDS: Isosorbide Mononitrate 30 MG ER 24HR Tablet (Imdur) PO SCH (08:27)
[2018-02-04] MEDS: Divalproex 500 MG DR Tablet PO SCH ×2 (08:27→20:17)
[2018-02-04] MEDS: Famotidine 20 MG Tablet PO SCH (08:27)
[2018-02-04 10:26] LABS: Calcium 8.2 mg/dL (8.5-10.1); Carbon Dioxide 29.4 meq/L (21.0-32.0); Potassium 4.3 meq/L (3.5-5.1)
--- NOTE | 2018-02-04 10:48 | P.PNFP ---
Subjective Interval history: Patient refused CPAP overnight. Dylan BESS'brittani yesterday. No problems urinating. Patient states he is doing well, denies SOB/chest pain or any other problems. Vitals wnl overnight except for tachycardia, which has been stable since admission. Pain meds are controlling patient's pain, states his leg still feels sore. <Berenice Gordon - 02/04/18 11:28> Results - Labs Result diagrams: 02/04/18 04:07 02/04/18 09:09 <Jose Dumont - 02/04/18 15:30> Abnormal lab results 02/04/18 02/04/18 Range/Units 04:07 09:09 RBC 3.48 L (4.50-5.90) mil/mm3 Hgb 11.4 L (13.0-17.0) gm/dL Hct 33.5 L (39.0-51.0) % [place] % (Auto) 16.1 H (0.0-8.0) % [place] # (Auto) 1.2 H (0.0-0.9) th/mm3 BUN 24 H (7-18) mg/dL Estimated GFR 71 L (>89) mL/min Calcium 8.2 L (8.5-10.1) mg/dL Short CBC 02/04/18 Range/Units 04:07 WBC 7.7 (4.0-11.0) th/mm3 Hgb 11.4 L (13.0-17.0) gm/dL Hct 33.5 L (39.0-51.0) % Plt Count 231 (150-450) th/mm3 [facility] 02/04/18 09:09 Sodium 141 Potassium 4.3 Chloride 105 Carbon Dioxide 29.4 BUN 24 H Creatinine 1.11 Calcium 8.2 L <Jose Dumont - 02/04/18 15:30> Abnormal lab results 02/04/18 02/04/18 Range/Units 04:07 09:09 RBC 3.48 L (4.50-5.90) mil/mm3 Hgb 11.4 L (13.0-17.0) gm/dL Hct 33.5 L (39.0-51.0) % [place] % (Auto) 16.1 H (0.0-8.0) % [place] # (Auto) 1.2 H (0.0-0.9) th/mm3 BUN 24 H (7-18) mg/dL Estimated GFR 71 L (>89) mL/min Calcium 8.2 L (8.5-10.1) mg/dL Short CBC 02/04/18 Range/Units 04:07 WBC 7.7 (4.0-11.0) th/mm3 Hgb 11.4 L (13.0-17.0) gm/dL Hct 33.5 L (39.0-51.0) % Plt Count 231 (150-450) th/mm3 BMP 02/04/18 09:09 Sodium 141 Potassium 4.3 Chloride 105 Carbon Dioxide 29.4 BUN 24 H Creatinine 1.11 Calcium 8.2 L <Berenice Gordon N - 02/04/18 10:48> Physical Exam Vital signs: Vital Signs 02/03/18 15:57 02/03/18 19:00 02/03/18 20:10 Temperature 98.6 F 98.7 F Pulse Rate 97 H 98 H 94 H Respiratory Rate 18 18 Blood Pressure 122/67 122/69 Pulse Oximetry 96 95 02/03/18 20:54 02/03/18 23:55 02/04/18 00:00 Temperature 97.4 F L Pulse Rate 95 H Respiratory Rate 19 Blood Pressure 140/88 Pulse Oximetry 96 96 92 L 02/04/18 00:04 02/04/18 03:16 02/04/18 04:02 Temperature 98.5 F Pulse Rate 112 H 110 H 107 H Respiratory Rate 18 Blood Pressure 133/77 Pulse Oximetry 93 L 02/04/18 08:00 02/04/18 12:00 Temperature 97.3 F L 98 F Pulse Rate 95 H 99 H Respiratory Rate 19 20 Blood Pressure 144/91 H 149/82 H Pulse Oximetry 99 97 Intake & Output 02/03/18 02/04/18 02/04/18 18:59 06:59 18:59 Intake Total 1200 / 1200 480 / 480 Output Total 125 / 125 650 / 650 Balance 1075 / 1075 -170 / -170 Weight 132.4 kg Intake: Oral 1200 / 1200 480 / 480 Output: Urine 125 / 125 650 / 650 Other: # Voids 1 Date of Last Bowel Movement 02/02/18 02/02/18 02/02/18 # Bowel Movements 0 0 <Jose Dumont - 02/04/18 15:30> Vital Signs 02/03/18 12:00 02/03/18 15:57 02/03/18 19:00 Temperature 98.2 F 98.6 F 98.7 F Pulse Rate 101 H 97 H 98 H Respiratory Rate 18 18 Blood Pressure 144/59 H 122/67 122/69 Pulse Oximetry 96 96 95 02/03/18 20:10 02/03/18 20:54 02/03/18 23:55 Temperature Pulse Rate 94 H Respiratory Rate Blood Pressure Pulse Oximetry 96 96 02/04/18 00:00 02/04/18 00:04 02/04/18 03:16 Temperature 97.4 F L 98.5 F Pulse Rate 95 H 112 H 110 H Respiratory Rate 19 18 Blood Pressure 140/88 133/77 Pulse Oximetry 92 L 93 L 02/04/18 04:02 02/04/18 08:00 Temperature 97.3 F L Pulse Rate 107 H 95 H Respiratory Rate 19 Blood Pressure 144/91 H Pulse Oximetry 99 Intake & Output 02/03/18 02/04/18 02/04/18 18:59 06:59 18:59 Intake Total 1200 / 1200 480 / 480 Output Total 125 / 125 650 / 650 Balance 1075 / 1075 -170 / -170 Weight 132.4 kg Intake: Oral 1200 / 1200 480 / 480 Output: Urine 125 / 125 650 / 650 Other: # Voids 1 Date of Last Bowel Movement 02/02/18 02/02/18 02/02/18 # Bowel Movements 0 0 <Berenice Gordon - 02/04/18 10:48> Narrative: GENERAL: Obese M appearing awake and alert. HEAD: Normocephalic. EYES: No injection or drainage. NECK: Supple, trachea midline. CARDIOVASCULAR: Regular rate and rhythm without murmurs, gallops, or rubs. RESPIRATORY: Breath sounds equal bilaterally. CTAB. GASTROINTESTINAL: Abdomen soft, non-tender, nondistended. MUSCULOSKELETAL: Swelling of the left extremity w/minimal drainage at the external fixator site, able to move both toes. <Berenice Gordon - 02/04/18 11:28> - Urinary Catheter Management Indwelling Urethral Catheter Cath placed during this visit: no <Jose Dumont 02/04/18 15:30> yes, but has since been removed by the nurse <Berenice Gordon N - 02/04/18 11:28> Reason for continuing: Acute urinary retention <AbidBerenice N - 02/04/18 10:48 > Insertion date: 01/31/18 <Abid,Berenice N - 02/04/18 10:48> Insertion time: 16:52 <Abid,Berenice N - 02/04/18 10:48> Removal date: 02/03/18 <Abid,Berenice N - 02/04/18 10:48> Removal time: 10:50 <Abid,Berenice N - 02/04/18 10:48> Straight Cath placed during this visit: no <Jose Dumont - 02/04/18 15:30> yes, but has since been removed by the nurse <Berenice Gordon N - 02/04/18 11:28> Reason for continuing: Not indwelling catheter <AbidBerenice - 02/04/18 10:48 > Insertion date: 01/31/18 <Abid,Berenice N - 02/04/18 10:48> Insertion time: 16:06 <Abid,Berenice N - 02/04/18 10:48> Removal date: 01/31/18 <Abid,Berenice N - 02/04/18 10:48> Removal time: 16:06 <Abid,Berenice N - 02/04/18 10:48> Assessment and Plan - Assessment (1) Fracture of tibial plateau, closed Code(s): S82.143A - Displaced bicondylar fracture of unspecified tibia, initial encounter for closed fracture Status: Acute (2) Seizure disorder Code(s): G40.909 - Epilepsy, unspecified, not intractable, without status epilepticus Status: Chronic (3) Coronary artery disease Code(s): I25.10 - Atherosclerotic heart disease of [place] coronary artery without angina pectoris Status: Chronic (4) Hypertension Code(s): I10 - Essential (primary) hypertension Status: Chronic (5) Hyperlipidemia Code(s): E78.5 - Hyperlipidemia, unspecified Status: Chronic (6) ELLA (obstructive sleep apnea) Code(s): G47.33 - Obstructive sleep apnea (adult) (pediatric) Status: Acute (7) Bipolar disorder Code(s): F31.9 - Bipolar disorder, unspecified Status: Acute (8) Nutrition, metabolism, and development symptoms Code(s): R63.8 - Other symptoms and signs concerning food and fluid intake Status: Acute (9) DVT prophylaxis Status: Acute (10) Postoperative urinary retention Code(s): N99.89 - Other postprocedural complications and disorders of genitourinary system; R33.8 - Other retention of urine Status: Acute <Jose Dumont - 02/04/18 15:30> (1) Fracture of tibial plateau, closed Code(s): S82.143A - Displaced bicondylar fracture of unspecified tibia, initial encounter for closed fracture Status: Acute Plan: Post op #5 status post manual reduction and external fixator placement Pain well controlled with: Tylenol 650 mg PO q4hr PRN pain scale 1-2 Ocycodone 5/325 mg q6hr PRN pain scale 3-5 Ocycodone 10/325 mg q6hr PRN pain scale 6-10 Morphine 4 mg IV q4hr PRN for breakthrough pain Morphine 4mg IV q1hr PRN for intractable pain PT consulted, recommend home health care Case management consulted Continue neurovascular checks Orthopedics following: due to LE swelling, plan for OR next week. (2) Seizure disorder Code(s): G40.909 - Epilepsy, unspecified, not intractable, without status epilepticus Status: Chronic Plan: Depakote 500 BID Ativan 0.5 mg TID (3) Coronary artery disease Code(s): I25.10 - Atherosclerotic heart disease of [place] coronary artery without angina pectoris Status: Chronic Plan: Continue Imdur, metropolol and atorvastatin Lisinopril continued. (4) Hypertension Code(s): I10 - Essential (primary) hypertension Status: Chronic Plan: Continue home medications (5) Hyperlipidemia Code(s): E78.5 - Hyperlipidemia, unspecified Status: Chronic Plan: Continue home atorvastatin (6) ELLA (obstructive sleep apnea) Code(s): G47.33 - Obstructive sleep apnea (adult) (pediatric) Status: Acute Plan: Encourage CPAP at night. (7) Bipolar disorder Code(s): F31.9 - Bipolar disorder, unspecified Status: Acute Plan: Con't Remeron, seroquel, and lexapro (8) Nutrition, metabolism, and development symptoms Code(s): R63.8 - Other symptoms and signs concerning food and fluid intake Status: Acute Plan: Insomnia: Mirtazapine 15 mg PO HS Dispo: Pending completion of Ortho procedures; Home w/home health care based on PT recs Fluids: none Electrolytes: none Diet: Cardiac Diet GI prophy: Protonix (9) DVT prophylaxis Status: Acute Plan: DVT prophylaxis: Heparin prophylaxis, avoid Lovanox due to kidney function SCD and compression hose to non-operative leg (10) Postoperative urinary retention Code(s): N99.89 - Other postprocedural complications and disorders of genitourinary system; R33.8 - Other retention of urine Status: Acute Plan: Resolved. <Berenice Gordon - 02/04/18 11:20> - Attending Attestation Patient case discussed with resident physicians I have independently examined the patient I have read the above note and agree with the assessment and plan as discussed with me I was involved in all medical decision making for this patient Jose Dumont MD <Jose Dumont - 02/04/18 15:30>
[2018-02-04] MEDS ORDERED: Morphine Inj 4 MG/ML Vial IV.PUSH PRN ×2 (11:24)
[2018-02-04] MEDS: Mirtazapine 15 MG Tablet PO SCH (20:17)
[2018-02-05] MEDS: Gabapentin 400 MG Capsule PO SCH ×4 (06:12→23:42)
[2018-02-05] MEDS: oxyCODONE/Acetaminophen 10/325 Tablet PO PRN ×2 (06:12→17:41)
[2018-02-05] MEDS: Heparin - SQ 10,000 UNITS/ML Vial SQ SCH ×3 (06:13→23:41)
[2018-02-05] MEDS: Divalproex 500 MG DR Tablet PO SCH ×2 (08:25→23:42)
[2018-02-05] MEDS: Isosorbide Mononitrate 30 MG ER 24HR Tablet (Imdur) PO SCH (08:25)
[2018-02-05] MEDS: LORazepam 0.5 MG Tablet PO SCH ×3 (08:26→23:42)
[2018-02-05] MEDS: Famotidine 20 MG Tablet PO SCH (08:26)
--- NOTE | 2018-02-05 08:40 | P.PNOP ---
Subjective Interval history: resting comfortably Physical Exam Vital signs: Vital Signs 02/04/18 12:00 02/04/18 16:00 02/04/18 16:40 Temperature 98 F 98 F 98.8 F Pulse Rate 99 H 99 H 103 H Respiratory Rate 20 20 18 Blood Pressure 149/82 H 141/83 H 155/89 H Pulse Oximetry 97 96 94 L 02/04/18 20:15 02/04/18 20:16 02/04/18 20:38 Temperature Pulse Rate 107 H 110 H Respiratory Rate 18 Blood Pressure 135/75 Pulse Oximetry 94 L 91 L 02/05/18 00:00 02/05/18 00:03 02/05/18 00:32 Temperature 97.6 F Pulse Rate 105 H 106 H Respiratory Rate 17 Blood Pressure 136/71 Pulse Oximetry 98 96 02/05/18 03:58 02/05/18 04:35 Temperature 98.1 F Pulse Rate 100 H 113 H Respiratory Rate 18 Blood Pressure 139/92 H Pulse Oximetry 93 L Intake & Output 02/04/18 02/05/18 02/05/18 18:59 06:59 18:59 Intake Total 1080 / 1080 780 / 780 Output Total 400 / 400 Balance 1080 / 1080 380 / 380 Weight 128.5 kg Intake: Oral 1080 / 1080 780 / 780 Output: Urine 400 / 400 Other: # Voids 1 Date of Last Bowel Movement 02/02/18 02/02/18 # Bowel Movements 0 Narrative: LLE: pin sites clean and dry. intact. NVI. 3+ swelling of lower leg. compartments soft - Urinary Catheter Management Straight Cath placed during this visit: yes, but has since been removed by the nurse Reason for continuing: Not indwelling catheter Insertion date: 01/31/18 Insertion time: 16:06 Removal date: 01/31/18 Removal time: 16:06 Indwelling Urethral Catheter Cath placed during this visit: yes, but has since been removed by the nurse Reason for continuing: Acute urinary retention Insertion date: 01/31/18 Insertion time: 16:52 Removal date: 02/03/18 Removal time: 10:50 Results - Labs CBC & Chem 7: 02/04/18 04:07 02/04/18 09:09 Laboratory Results - last 24 hr 02/04/18 09:09 Sodium 141 Potassium 4.3 Chloride 105 Carbon Dioxide 29.4 Anion Gap 7 BUN 24 H Creatinine 1.11 Estimated GFR 71 L Random Glucose 86 Calcium 8.2 L Assessment and Plan - Assessment and Plan Left tibial plateau fracture status post external fixation and reduction Nonweightbearing left lower extremity. Elevation and ice Pin care twice daily Bacitracin to all abrasions swelling still not appropriate. NPO after MN on Thursday night hold Lovenox after Thursday's dose possible Surgery on Thursday. More likely Thursday or later in the week. We will assess swelling on Thursday Incentive spirometry
[2018-02-05] MEDS ORDERED: Lisinopril 20 MG Tablet PO SCH (09:00)
--- NOTE | 2018-02-05 09:47 | P.PNFP ---
Subjective Interval history: No acute events overnight. Used CPAP. Reports the pain is well controlled. Denies constipation, nausea/vomiting, chest pain/SOB. Blood pressure 130-140s overnight. Taking lisinopril 10 mg daily. <Berenice Gordon N - 02/05/18 09:47> Results - Labs Result diagrams: 02/04/18 04:07 02/04/18 09:09 <Jose Dumont - 02/05/18 14:01> Abnormal lab results 02/04/18 Range/Units 09:09 BUN 24 H (7-18) mg/dL Estimated GFR 71 L (>89) mL/min Calcium 8.2 L (8.5-10.1) mg/dL BMP 02/04/18 09:09 Sodium 141 Potassium 4.3 Chloride 105 Carbon Dioxide 29.4 BUN 24 H Creatinine 1.11 Calcium 8.2 L <Berenice Gordon N - 02/05/18 09:47> Physical Exam Vital signs: Vital Signs 02/04/18 16:00 02/04/18 16:40 02/04/18 20:15 Temperature 98 F 98.8 F Pulse Rate 99 H 103 H 107 H Respiratory Rate 20 18 18 Blood Pressure 141/83 H 155/89 H 135/75 Pulse Oximetry 96 94 L 94 L 02/04/18 20:16 02/04/18 20:38 02/05/18 00:00 Temperature 97.6 F Pulse Rate 110 H 105 H Respiratory Rate 17 Blood Pressure 136/71 Pulse Oximetry 91 L 98 02/05/18 00:03 02/05/18 00:32 02/05/18 03:58 Temperature Pulse Rate 106 H 100 H Respiratory Rate Blood Pressure Pulse Oximetry 96 02/05/18 04:35 02/05/18 08:00 02/05/18 12:00 Temperature 98.1 F 98.4 F 98.0 F Pulse Rate 113 H 103 H 97 H Respiratory Rate 18 16 16 Blood Pressure 139/92 H 133/79 96/64 L Pulse Oximetry 93 L 93 L 96 02/05/18 13:30 Temperature Pulse Rate Respiratory Rate Blood Pressure 90/54 L Pulse Oximetry Intake & Output 02/04/18 02/05/18 02/05/18 18:59 06:59 18:59 Intake Total 1080 / 1080 780 / 780 Output Total 400 / 400 Balance 1080 / 1080 380 / 380 Weight 128.5 kg Intake: Oral 1080 / 1080 780 / 780 Output: Urine 400 / 400 Other: # Voids 1 Date of Last Bowel Movement 02/02/18 02/02/18 02/02/18 # Bowel Movements 0 <Jose Dumont - 02/05/18 14:01> Vital Signs 02/04/18 12:00 02/04/18 16:00 02/04/18 16:40 Temperature 98 F 98 F 98.8 F Pulse Rate 99 H 99 H 103 H Respiratory Rate 20 20 18 Blood Pressure 149/82 H 141/83 H 155/89 H Pulse Oximetry 97 96 94 L 02/04/18 20:15 02/04/18 20:16 02/04/18 20:38 Temperature Pulse Rate 107 H 110 H Respiratory Rate 18 Blood Pressure 135/75 Pulse Oximetry 94 L 91 L 02/05/18 00:00 02/05/18 00:03 02/05/18 00:32 Temperature 97.6 F Pulse Rate 105 H 106 H Respiratory Rate 17 Blood Pressure 136/71 Pulse Oximetry 98 96 02/05/18 03:58 02/05/18 04:35 02/05/18 08:00 Temperature 98.1 F 98.4 F Pulse Rate 100 H 113 H 103 H Respiratory Rate 18 16 Blood Pressure 139/92 H 133/79 Pulse Oximetry 93 L 93 L Intake & Output 02/04/18 02/05/18 02/05/18 18:59 06:59 18:59 Intake Total 1080 / 1080 780 / 780 Output Total 400 / 400 Balance 1080 / 1080 380 / 380 Weight 128.5 kg Intake: Oral 1080 / 1080 780 / 780 Output: Urine 400 / 400 Other: # Voids 1 Date of Last Bowel Movement 02/02/18 02/02/18 02/02/18 # Bowel Movements 0 <Berenice Gordon N - 02/05/18 09:47> Narrative: Narrative: GENERAL: Obese M appearing awake and alert. HEAD: Normocephalic. EYES: No injection or drainage. NECK: Supple, trachea midline. CARDIOVASCULAR: Regular rate and rhythm without murmurs, gallops, or rubs. RESPIRATORY: Breath sounds equal bilaterally, coarse expiratory rhonchi at the lower lung bases. GASTROINTESTINAL: Abdomen soft, non-tender, nondistended. MUSCULOSKELETAL: Swelling of the left extremity w/minimal drainage at the external fixator site, able to move both toes. <AbidBerenice N - 02/05/18 09:47> - Urinary Catheter Management Indwelling Urethral Catheter Cath placed during this visit: no <Jose Dumont - 02/05/18 14:01> yes, but has since been removed by the nurse <AbidBerenice N - 02/05/18 09:47> Reason for continuing: Acute urinary retention <Abid,Berenice N - 02/05/18 09:47 > Insertion date: 01/31/18 <Abid,Berenice N - 02/05/18 09:47> Insertion time: 16:52 <Abid,Berenice N - 02/05/18 09:47> Removal date: 02/03/18 <Abid,Berenice N - 02/05/18 09:47> Removal time: 10:50 <Abid,Berenice N - 02/05/18 09:47> Straight Cath placed during this visit: no <TimJose - 02/05/18 14:01> yes, but has since been removed by the nurse <AbidBerenice N - 02/05/18 09:47> Reason for continuing: Not indwelling catheter <AbidAguilarBerenice N - 02/05/18 09:47 > Insertion date: 01/31/18 <Abid,Berenice N - 02/05/18 09:47> Insertion time: 16:06 <Abid,Berenice N - 02/05/18 09:47> Removal date: 01/31/18 <Abid,Berenice N - 02/05/18 09:47> Removal time: 16:06 <Abid,Berenice N - 02/05/18 09:47> Assessment and Plan - Assessment (1) Fracture of tibial plateau, closed Code(s): S82.143A - Displaced bicondylar fracture of unspecified tibia, initial encounter for closed fracture Status: Acute (2) Hypertension Code(s): I10 - Essential (primary) hypertension Status: Chronic (3) Seizure disorder Code(s): G40.909 - Epilepsy, unspecified, not intractable, without status epilepticus Status: Chronic (4) Coronary artery disease Code(s): I25.10 - Atherosclerotic heart disease of [place] coronary artery without angina pectoris Status: Chronic (5) Hyperlipidemia Code(s): E78.5 - Hyperlipidemia, unspecified Status: Chronic (6) ELLA (obstructive sleep apnea) Code(s): G47.33 - Obstructive sleep apnea (adult) (pediatric) Status: Acute (7) Bipolar disorder Code(s): F31.9 - Bipolar disorder, unspecified Status: Acute (8) Nutrition, metabolism, and development symptoms Code(s): R63.8 - Other symptoms and signs concerning food and fluid intake Status: Acute (9) DVT prophylaxis Status: Acute (10) Postoperative urinary retention Code(s): N99.89 - Other postprocedural complications and disorders of genitourinary system; R33.8 - Other retention of urine Status: Acute <Jose Dumont - 02/05/18 14:01> (1) Fracture of tibial plateau, closed Code(s): S82.143A - Displaced bicondylar fracture of unspecified tibia, initial encounter for closed fracture Status: Acute Plan: Post op #5 status post manual reduction and external fixator placement Pain well controlled with: Tylenol 650 mg PO q4hr PRN pain scale 1-2 Ocycodone 5/325 mg q6hr PRN pain scale 3-5 Ocycodone 10/325 mg q6hr PRN pain scale 6-10 Morphine 4 mg IV q4hr PRN for breakthrough pain PT consulted, recommend home health care Case management consulted Continue neurovascular checks Orthopedics following: due to LE swelling, plan for OR Thursday or Thursday Encourage use of incentive spirometer and CPAP at night to prevent atelectasis (2) Hypertension Code(s): I10 - Essential (primary) hypertension Status: Chronic Plan: Home medication lisinopril increased from 10 mg daily to 20 mg daily for better blood pressure control (3) Seizure disorder Code(s): G40.909 - Epilepsy, unspecified, not intractable, without status epilepticus Status: Chronic Plan: Depakote 500 BID Ativan 0.5 mg TID (4) Coronary artery disease Code(s): I25.10 - Atherosclerotic heart disease of [place] coronary artery without angina pectoris Status: Chronic Plan: Continue Imdur, metropolol and atorvastatin Lisinopril continued. (5) Hyperlipidemia Code(s): E78.5 - Hyperlipidemia, unspecified Status: Chronic Plan: Continue home atorvastatin (6) ELLA (obstructive sleep apnea) Code(s): G47.33 - Obstructive sleep apnea (adult) (pediatric) Status: Acute Plan: Encourage CPAP at night. (7) Bipolar disorder Code(s): F31.9 - Bipolar disorder, unspecified Status: Acute Plan: Con't Remeron, seroquel, and lexapro (8) Nutrition, metabolism, and development symptoms Code(s): R63.8 - Other symptoms and signs concerning food and fluid intake Status: Acute Plan: Insomnia: Mirtazapine 15 mg PO HS Dispo: Pending completion of Ortho procedures; Home w/home health care based on PT recs Fluids: none Electrolytes: none Diet: Cardiac Diet GI prophy: Protonix (9) DVT prophylaxis Status: Acute Plan: DVT prophylaxis: Heparin prophylaxis SCD and compression hose to non-operative leg (10) Postoperative urinary retention Code(s): N99.89 - Other postprocedural complications and disorders of genitourinary system; R33.8 - Other retention of urine Status: Acute Plan: Resolved. <Berenice Gordon - 02/05/18 09:39> - Assessment and Plan Pt. examined and case discussed with resident physicians. I have read the above note and agree with the assessment and plan as discussed with me. I was involved in all medical decision making for this patient. Jose Dumont MD <Berenice Gordon - 02/05/18 09:47> - Attending Attestation Patient case discussed with resident physicians I have independently examined the patient I have read the above note and agree with the assessment and plan as discussed with me I was involved in all medical decision making for this patient Jose Dumont MD <Jose Dumont - 02/05/18 14:01>
[2018-02-05] MEDS ORDERED: Sod Chloride 0.9% Inj 1,000 ML IV.SIG ONE (14:30)
[2018-02-05 14:33] LABS: VBG Base Excess 2.3 mmol/L (-2-2); VBG Blood Gas Oxygen Content 12.9 Vol % (9.0-17.0); VBG PCO2 42 mmHG (44-48); VBG PH 7.42 (7.360-7.400); VBG PO2 55 mmHG (35-40)
[2018-02-05] MEDS: Mirtazapine 15 MG Tablet PO SCH (23:42)
[2018-02-06] MEDS: Divalproex 500 MG DR Tablet PO SCH ×2 (08:45→21:27)
[2018-02-06] MEDS: LORazepam 0.5 MG Tablet PO SCH ×3 (08:45→23:19)
[2018-02-06] MEDS: Isosorbide Mononitrate 30 MG ER 24HR Tablet (Imdur) PO SCH (08:46)
[2018-02-06] MEDS: Famotidine 20 MG Tablet PO SCH (08:46)
[2018-02-06] MEDS: Gabapentin 400 MG Capsule PO SCH ×4 (08:47→23:19)
[2018-02-06] MEDS: Heparin - SQ 10,000 UNITS/ML Vial SQ SCH ×3 (08:47→21:29)
--- NOTE | 2018-02-06 10:33 | P.PNFP ---
Subjective Interval history: Patient seen and examined this morning. Patient is more alert today. He complains of continued pain in his left leg and itchiness of the [address] rash on his left forearm. He otherwise has no complaint. Denies chest pain, shortness of breath, fever, chills, nausea, vomiting, or abdominal pain. He tolerated CPAP overnight. <Nara Castrejon - 02/06/18 12:15> Results - Labs Result diagrams: 02/04/18 04:07 02/04/18 09:09 <Jose Dumont - 02/06/18 13:18> Abnormal lab results 02/05/18 Range/Units 14:17 VBG pH 7.42 H (7.360-7.400) VBG pCO2 42 L (44-48) mmHG VBG pO2 55 H (35-40) mmHG VBG O2 Saturation 84 H (70-76) % VBG Base Excess 2.3 H (-2-2) mmol/L Hemoglobin 10.9 L (12.0-16.0) G/DL <Jose Dumont - 02/06/18 13:18> Abnormal lab results 02/05/18 Range/Units 14:17 VBG pH 7.42 H (7.360-7.400) VBG pCO2 42 L (44-48) mmHG VBG pO2 55 H (35-40) mmHG VBG O2 Saturation 84 H (70-76) % VBG Base Excess 2.3 H (-2-2) mmol/L Hemoglobin 10.9 L (12.0-16.0) G/DL <Nara Castrejon - 02/06/18 10:33> Physical Exam Vital signs: Vital Signs 02/05/18 13:30 02/05/18 16:00 02/05/18 20:20 Temperature 98.7 F 97.9 F Pulse Rate 101 H 97 H Respiratory Rate 18 17 Blood Pressure 90/54 L 122/65 117/63 Pulse Oximetry 94 L 96 02/05/18 21:45 02/06/18 00:00 02/06/18 04:28 Temperature 98.2 F Pulse Rate 91 H 97 H Respiratory Rate 16 16 Blood Pressure 136/75 Pulse Oximetry 98 100 02/06/18 04:55 02/06/18 08:00 02/06/18 08:50 Temperature 97.7 F 98.7 F Pulse Rate 96 H 101 H 90 Respiratory Rate 17 18 18 Blood Pressure 138/81 139/70 Pulse Oximetry 95 99 02/06/18 12:00 Temperature 99.1 F Pulse Rate 100 H Respiratory Rate 18 Blood Pressure 119/67 Pulse Oximetry 94 L Intake & Output 02/05/18 02/06/18 02/06/18 18:59 06:59 18:59 Intake Total 1800 / 1800 Output Total 400 / 400 Balance 1400 / 1400 Weight 128.5 kg Intake: IV 1000 / 1000 NS Inj 1,000 ML @ Wide Open IV. 1000 / 1000 SIG BOLUS ONE Rx#:[id number] Oral 800 / 800 Output: Urine 400 / 400 Other: Date of Last Bowel Movement 02/02/18 # Bowel Movements 1 <Jose Dumont - 02/06/18 13:18> Vital Signs 02/05/18 12:00 02/05/18 13:30 02/05/18 16:00 Temperature 98.0 F 98.7 F Pulse Rate 97 H 101 H Respiratory Rate 16 18 Blood Pressure 96/64 L 90/54 L 122/65 Pulse Oximetry 96 94 L 02/05/18 20:20 02/05/18 21:45 02/06/18 00:00 Temperature 97.9 F 98.2 F Pulse Rate 97 H 91 H Respiratory Rate 17 16 Blood Pressure 117/63 136/75 Pulse Oximetry 96 98 100 02/06/18 04:28 02/06/18 04:55 02/06/18 08:00 Temperature 97.7 F 98.7 F Pulse Rate 97 H 96 H 101 H Respiratory Rate 16 17 18 Blood Pressure 138/81 139/70 Pulse Oximetry 95 99 02/06/18 08:50 Temperature Pulse Rate 90 Respiratory Rate 18 Blood Pressure Pulse Oximetry Intake & Output 02/05/18 02/06/18 02/06/18 18:59 06:59 18:59 Intake Total 1800 / 1800 Output Total 400 / 400 Balance 1400 / 1400 Weight 128.5 kg Intake: IV 1000 / 1000 NS Inj 1,000 ML @ Wide Open IV. 1000 / 1000 SIG BOLUS ONE Rx#:[id number] Oral 800 / 800 Output: Urine 400 / 400 Other: Date of Last Bowel Movement 02/02/18 # Bowel Movements 1 <Nara Castrejon - 02/06/18 10:33> Narrative: GENERAL: Obese M appearing awake and alert. HEAD: Normocephalic. EYES: No injection or drainage. NECK: Supple, trachea midline. CARDIOVASCULAR: Regular rate and rhythm without murmurs, gallops, or rubs. RESPIRATORY: Breath sounds equal bilaterally, coarse expiratory rhonchi at the lower lung bases. GASTROINTESTINAL: Abdomen soft, non-tender, nondistended. MUSCULOSKELETAL: Swelling of the left extremity without obvious drainage at the external fixator site, able to move both toes. Normal sensation. <CashNara Neto Leticia 02/06/18 12:15> - Urinary Catheter Management Indwelling Urethral Catheter Cath placed during this visit: no <TimJose 02/06/18 13:18> yes, but has since been removed by the nurse <CashNara Neto 02/06/18 12:15> Reason for continuing: Acute urinary retention <CashNara Neto 02/06/18 10: 33> Insertion date: 01/31/18 <CashNara Neto 02/06/18 10:33> Insertion time: 16:52 <CashNara Kelly 02/06/18 10:33> Removal date: 02/03/18 <CashNara Duque 02/06/18 10:33> Removal time: 10:50 <CashNara Duque 02/06/18 10:33> Straight Cath placed during this visit: no <TimJose 02/06/18 13:18> yes, but has since been removed by the nurse <CashNara Neto 02/06/18 12:15> Reason for continuing: Not indwelling catheter <CashNara Duque 02/06/18 10: 33> Insertion date: 01/31/18 <CashNara Duque Leticia 02/06/18 10:33> Insertion time: 16:06 <CashNara Duque Leticia 02/06/18 10:33> Removal date: 01/31/18 <CashNara Duque Leticia 02/06/18 10:33> Removal time: 16:06 <CashNara Duque 02/06/18 10:33> Assessment and Plan - Assessment (1) Fracture of tibial plateau, closed Code(s): S82.143A - Displaced bicondylar fracture of unspecified tibia, initial encounter for closed fracture Status: Acute (2) Hypertension Code(s): I10 - Essential (primary) hypertension Status: Chronic (3) Seizure disorder Code(s): G40.909 - Epilepsy, unspecified, not intractable, without status epilepticus Status: Chronic (4) Coronary artery disease Code(s): I25.10 - Atherosclerotic heart disease of [place] coronary artery without angina pectoris Status: Chronic (5) Hyperlipidemia Code(s): E78.5 - Hyperlipidemia, unspecified Status: Chronic (6) ELLA (obstructive sleep apnea) Code(s): G47.33 - Obstructive sleep apnea (adult) (pediatric) Status: Acute (7) Bipolar disorder Code(s): F31.9 - Bipolar disorder, unspecified Status: Acute (8) Nutrition, metabolism, and development symptoms Code(s): R63.8 - Other symptoms and signs concerning food and fluid intake Status: Acute (9) DVT prophylaxis Status: Acute (10) Postoperative urinary retention Code(s): N99.89 - Other postprocedural complications and disorders of genitourinary system; R33.8 - Other retention of urine Status: Acute <Jose Dumont - 02/06/18 13:18> (1) Fracture of tibial plateau, closed Code(s): S82.143A - Displaced bicondylar fracture of unspecified tibia, initial encounter for closed fracture Status: Acute Plan: Post op #6 status post manual reduction and external fixator placement Pain well controlled with: Tylenol 650 mg PO q4hr PRN pain scale 1-2 Ocycodone 5/325 mg q6hr PRN pain scale 3-5 Ocycodone 10/325 mg q6hr PRN pain scale 6-10 Morphine 4 mg IV q4hr PRN for breakthrough pain PT consulted, recommend home health care Case management consulted Continue neurovascular checks Orthopedics following: due to LE swelling, plan for OR Thursday or Thursday Encourage use of incentive spirometer and CPAP at night to prevent atelectasis Ordered bacitracin and hydrocortisone 1% ointment to be applied as needed to healing wound on left upper extremity. (2) Hypertension Code(s): I10 - Essential (primary) hypertension Status: Chronic Plan: Home medication lisinopril 20 mg daily for better blood pressure control (3) Seizure disorder Code(s): G40.909 - Epilepsy, unspecified, not intractable, without status epilepticus Status: Chronic Plan: Depakote 500 BID Ativan 0.5 mg TID (4) Coronary artery disease Code(s): I25.10 - Atherosclerotic heart disease of [place] coronary artery without angina pectoris Status: Chronic Plan: Continue Imdur, metropolol and atorvastatin Lisinopril continued. (5) Hyperlipidemia Code(s): E78.5 - Hyperlipidemia, unspecified Status: Chronic Plan: Continue home atorvastatin (6) ELLA (obstructive sleep apnea) Code(s): G47.33 - Obstructive sleep apnea (adult) (pediatric) Status: Acute Plan: Encourage CPAP at night. (7) Bipolar disorder Code(s): F31.9 - Bipolar disorder, unspecified Status: Acute Plan: Con't Remeron, seroquel, and lexapro (8) Nutrition, metabolism, and development symptoms Code(s): R63.8 - Other symptoms and signs concerning food and fluid intake Status: Acute Plan: Insomnia: Mirtazapine 15 mg PO HS Fluids: none Electrolytes: none Diet: Cardiac Diet GI prophy: Protonix Dispo: Pending completion of Ortho procedures; Home w/home health care based on PT recs (9) DVT prophylaxis Status: Acute Plan: DVT prophylaxis: Heparin prophylaxis SCD and compression hose to non-operative leg (10) Postoperative urinary retention Code(s): N99.89 - Other postprocedural complications and disorders of genitourinary system; R33.8 - Other retention of urine Status: Acute Plan: Resolved. <Nara Castrejon - 02/06/18 12:15> - Attending Attestation Pt. examined and case discussed with resident physicians. I have read the above note and agree with the assessment and plan as discussed with me. I was involved in all medical decision making for this patient. Jose Dumont MD <Jose Dumont - 02/06/18 13:18>
[2018-02-06] MEDS: oxyCODONE/Acetaminophen 10/325 Tablet PO PRN ×2 (13:01→19:30)
[2018-02-06] MEDS: Mirtazapine 15 MG Tablet PO SCH (21:27)
[2018-02-07] MEDS: oxyCODONE/Acetaminophen 10/325 Tablet PO PRN ×3 (06:10→23:33)
[2018-02-07] MEDS: Gabapentin 400 MG Capsule PO SCH ×4 (06:10→23:34)
[2018-02-07] MEDS: Heparin - SQ 10,000 UNITS/ML Vial SQ SCH ×2 (06:11→15:47)
[2018-02-07] MEDS: Divalproex 500 MG DR Tablet PO SCH ×2 (09:18→20:16)
[2018-02-07] MEDS: LORazepam 0.5 MG Tablet PO SCH ×3 (09:18→23:33)
[2018-02-07] MEDS: Famotidine 20 MG Tablet PO SCH (09:19)
[2018-02-07] MEDS: Isosorbide Mononitrate 30 MG ER 24HR Tablet (Imdur) PO SCH (09:19)
[2018-02-07 09:24] LABS: Hematocrit 34.4 % (39.0-51.0); Hemoglobin 11.6 gm/dL (13.0-17.0); Mean Corpuscular HGB Conc 33.7 % (32.0-36.0); Mean Corpuscular Hemoglobin 32.6 pg (27.0-34.0); Mean Corpuscular Volume 96.7 fL (80.0-100.0); Mean Platelet Volume 7.5 fL (7.0-11.0); Platelet Count 286 th/mm3 (150-450); Red Blood Count 3.56 mil/mm3 (4.50-5.90); Red Cell Distribution Width 15.4 % (11.6-17.2); White Blood Count 8.1 th/mm3 (4.0-11.0)
--- NOTE | 2018-02-07 09:37 | P.PNFP ---
Subjective Interval history: No new porblems, feeling good this morning, vitals wnl. Heparin to be held 24 hrs before procedure, NPO after midnight <Berenice Gordon - 02/07/18 10:48> Results - Labs Result diagrams: 02/07/18 09:07 02/07/18 09:07 <Waldo Willis - 02/08/18 13:23> Abnormal lab results 02/07/18 Range/Units 09:07 RBC 3.56 L (4.50-5.90) mil/mm3 Hgb 11.6 L (13.0-17.0) gm/dL Hct 34.4 L (39.0-51.0) % Short CBC 02/07/18 Range/Units 09:07 WBC 8.1 (4.0-11.0) th/mm3 Hgb 11.6 L (13.0-17.0) gm/dL Hct 34.4 L (39.0-51.0) % Plt Count 286 (150-450) th/mm3 <Berenice Gordon N - 02/07/18 09:37> - Imaging Impressions Knee X-Ray 02/08/18 00:00 CONCLUSION: Stable appearance of the fracture fragments. <Waldo Willis - 02/08/18 13:23> Physical Exam Vital signs: Vital Signs 02/07/18 15:31 02/07/18 16:00 02/07/18 20:00 Temperature 97.9 F 98.3 F Pulse Rate 91 H 93 H 95 H Respiratory Rate 18 16 20 Blood Pressure 119/56 L 125/62 Pulse Oximetry 92 L 96 02/07/18 21:00 02/07/18 23:45 02/08/18 00:00 Temperature 97.9 F Pulse Rate 95 H 100 H Respiratory Rate 16 20 Blood Pressure 143/65 H Pulse Oximetry 99 98 02/08/18 03:58 02/08/18 04:00 02/08/18 08:00 Temperature 97.8 F 97.7 F Pulse Rate 95 H 104 H 94 H Respiratory Rate 18 20 16 Blood Pressure 157/65 H 142/65 H Pulse Oximetry 98 97 02/08/18 09:03 02/08/18 09:15 02/08/18 09:30 Temperature 98.8 F Pulse Rate 94 H 94 H 94 H Respiratory Rate 20 20 20 Blood Pressure 124/59 L 115/59 L 120/60 Pulse Oximetry 95 95 02/08/18 09:40 02/08/18 13:11 Temperature 98.8 F 97.6 F Pulse Rate 94 H 100 H Respiratory Rate 20 Blood Pressure 120/60 108/78 Pulse Oximetry 95 95 Intake & Output 02/07/18 02/08/18 02/08/18 18:59 06:59 18:59 Intake Total 50 / 50 Output Total 350 / 350 Balance -350 / -350 50 / 50 Weight 128.4 kg Intake: Anesthesia Amount 50 / 50 Output: Urine 350 / 350 Other: # Voids 550 Date of Last Bowel Movement 02/06/18 02/06/18 02/06/18 <Waldo Willis - 02/08/18 13:23> Vital Signs 02/06/18 12:00 02/06/18 16:00 02/06/18 16:37 Temperature 99.1 F 98.2 F Pulse Rate 93 H 94 H 81 Respiratory Rate 18 18 18 Blood Pressure 119/67 139/77 Pulse Oximetry 94 L 97 02/06/18 20:00 02/06/18 20:50 02/06/18 23:44 Temperature 99.2 F Pulse Rate 98 H 99 H Respiratory Rate 18 18 Blood Pressure 139/79 Pulse Oximetry 95 94 L 02/07/18 00:00 02/07/18 03:18 02/07/18 04:00 Temperature 98.3 F 97.8 F Pulse Rate 104 H 101 H 95 H Respiratory Rate 18 18 18 Blood Pressure 139/67 137/71 Pulse Oximetry 95 95 02/07/18 08:00 02/07/18 08:51 Temperature 97.5 F L Pulse Rate 95 H 98 H Respiratory Rate 18 20 Blood Pressure 134/67 Pulse Oximetry 94 L Intake & Output 02/06/18 02/07/18 02/07/18 18:59 06:59 18:59 Intake Total 260 / 260 Output Total 650 / 650 200 / 200 Balance -650 / -650 60 / 60 Weight 127.6 kg Intake: Oral 260 / 260 Output: Urine 650 / 650 200 / 200 Other: Date of Last Bowel Movement 02/06/18 <Berenice Gordon - 02/07/18 09:37> Narrative: GENERAL: Obese M appearing awake and alert. HEAD: Normocephalic. EYES: No injection or drainage. NECK: Supple, trachea midline. CARDIOVASCULAR: Regular rate and rhythm without murmurs, gallops, or rubs. RESPIRATORY: Breath sounds equal bilaterally. GASTROINTESTINAL: Abdomen soft, non-tender, nondistended. MUSCULOSKELETAL: Swelling of the left extremity without obvious drainage at the external fixator site, able to move both toes. Normal sensation. <AbidBerenice N - 02/07/18 10:48> - Urinary Catheter Management Indwelling Urethral Catheter Cath placed during this visit: no <Waldo Willis - 02/08/18 13:23> yes, but has since been removed by the nurse <AbidBerenice N - 02/07/18 10:48> Reason for continuing: Acute urinary retention <Abid,Berenice N - 02/07/18 09:37 > Insertion date: 01/31/18 <Abid,Berenice N - 02/07/18 09:37> Insertion time: 16:52 <Abid,Berenice N 02/07/18 09:37> Removal date: 02/03/18 <Abid,Berenice N - 02/07/18 09:37> Removal time: 10:50 <Abid,Berenice N - 02/07/18 09:37> Straight Cath placed during this visit: no <Waldo Willis - 02/08/18 13:23> yes, but has since been removed by the nurse <AbidAguilarBerenice N 02/07/18 10:48> Reason for continuing: Not indwelling catheter <AbidAguilarBerenice N - 02/07/18 09:37 > Insertion date: 01/31/18 <Abid,Berenice N - 02/07/18 09:37> Insertion time: 16:06 <Abid,Berenice N - 02/07/18 09:37> Removal date: 01/31/18 <Abid,Berenice N - 02/07/18 09:37> Removal time: 16:06 <Abid,Berenice N - 02/07/18 09:37> Assessment and Plan - Assessment (1) Fracture of tibial plateau, closed Code(s): S82.143A - Displaced bicondylar fracture of unspecified tibia, initial encounter for closed fracture Status: Acute Plan: Post op #7 status post manual reduction and external fixator placement Pain well controlled with: Tylenol 650 mg PO q4hr PRN pain scale 1-2 Oxycodone 5/325 mg q6hr PRN pain scale 3-5 Oxycodone 10/325 mg q6hr PRN pain scale 6-10 PT consulted, recommend home health care Case management consulted Continue neurovascular checks Orthopedics following: due to LE swelling, plan for OR Thursday or Thursday Encourage use of incentive spirometer and CPAP at night to prevent atelectasis (2) Hypertension Code(s): I10 - Essential (primary) hypertension Status: Chronic Plan: Home medication lisinopril 20 mg daily for better blood pressure control (3) Seizure disorder Code(s): G40.909 - Epilepsy, unspecified, not intractable, without status epilepticus Status: Chronic Plan: Depakote 500 BID Ativan 0.5 mg TID (4) Coronary artery disease Code(s): I25.10 - Atherosclerotic heart disease of [place] coronary artery without angina pectoris Status: Chronic Plan: Continue Imdur, metroprolol and atorvastatin Lisinopril held. (5) Hyperlipidemia Code(s): E78.5 - Hyperlipidemia, unspecified Status: Chronic Plan: Continue home atorvastatin (6) ELLA (obstructive sleep apnea) Code(s): G47.33 - Obstructive sleep apnea (adult) (pediatric) Status: Acute Plan: Encourage CPAP at night. (7) Bipolar disorder Code(s): F31.9 - Bipolar disorder, unspecified Status: Acute Plan: Con't Remeron, seroquel, and lexapro (8) Postoperative urinary retention Code(s): N99.89 - Other postprocedural complications and disorders of genitourinary system; R33.8 - Other retention of urine Status: Acute Plan: Resolved. (9) Nutrition, metabolism, and development symptoms Code(s): R63.8 - Other symptoms and signs concerning food and fluid intake Status: Acute Plan: Insomnia: Mirtazapine 15 mg PO HS Fluids: none Electrolytes: none Diet: Cardiac Diet, NPO after midnight GI prophy: Protonix (10) DVT prophylaxis Status: Acute Plan: DVT prophylaxis: Heparin prophylaxis, hold this afternoon for possible surgery tomorrow SCD and compression hose to non-operative leg Dispo: Pending completion of Ortho procedures; Home w/home health care based on PT recs <Berenice Gordon - 02/07/18 10:43> - Assessment and Plan See the residents documentation for details. I saw and evaluated the patient regarding the [place] portions of this evaluation and agree with the residents findings and plans as written. Parts of this note were created using [employer] voice recognition software program. While efforts were made to correct any mistakes made by this software, some mistakes, errors, and omissions may remain in the final note that were not caught when the note was originally created. Plan of care was discussed and agreed upon with the patient as specifically documented in the above note. An opportunity to ask questions with explanation was provided. Patient voiced understanding on all information reviewed and discussed. did not see the patient today. <Waldo Willis - 02/08/18 13:23> Pt. examined and case discussed with resident physicians. I have read the above note and agree with the assessment and plan as discussed with me. I was involved in all medical decision making for this patient. Jose Dumont MD <Berenice Gordon - 02/07/18 09:37>
[2018-02-07 09:38] LABS: Calcium 8.2 mg/dL (8.5-10.1); Carbon Dioxide 27.3 meq/L (21.0-32.0); Potassium 4.1 meq/L (3.5-5.1)
[2018-02-07] MEDS: Mirtazapine 15 MG Tablet PO SCH (20:16)
[2018-02-08] MEDS: Gabapentin 400 MG Capsule PO SCH ×3 (06:18→18:07)
[2018-02-08] MEDS: oxyCODONE/Acetaminophen 10/325 Tablet PO PRN ×3 (06:19→18:07)
--- NOTE | 2018-02-08 06:39 | P.PNOP ---
Subjective Interval history: s/p Exfix left tibial plateau fracture] doing well. pain controlled. no new complaints. Physical Exam Vital signs: Vital Signs 02/07/18 08:00 02/07/18 08:51 02/07/18 12:00 Temperature 97.5 F L 98.2 F Pulse Rate 98 H 98 H 97 H Respiratory Rate 18 20 16 Blood Pressure 134/67 141/78 H Pulse Oximetry 94 L 96 02/07/18 15:31 02/07/18 16:00 02/07/18 20:00 Temperature 97.9 F 98.3 F Pulse Rate 91 H 93 H 95 H Respiratory Rate 18 16 20 Blood Pressure 119/56 L 125/62 Pulse Oximetry 92 L 96 02/07/18 21:00 02/07/18 23:45 02/08/18 00:00 Temperature 97.9 F Pulse Rate 95 H 100 H Respiratory Rate 16 20 Blood Pressure 143/65 H Pulse Oximetry 99 98 02/08/18 03:58 02/08/18 04:00 Temperature 97.8 F Pulse Rate 95 H 104 H Respiratory Rate 18 20 Blood Pressure 157/65 H Pulse Oximetry 98 Intake & Output 02/07/18 02/07/18 02/08/18 06:59 18:59 06:59 Intake Total 260 / 260 Output Total 200 / 200 350 / 350 Balance 60 / 60 -350 / -350 Weight 127.6 kg 128.4 kg Intake: Oral 260 / 260 Output: Urine 200 / 200 350 / 350 Other: # Voids 550 Date of Last Bowel Movement 02/06/18 02/06/18 Narrative: LLE: 3+ swelling of lower leg. compartments soft. exfix bar is pressing against skin on anterior leg - Urinary Catheter Management Straight Cath placed during this visit: yes, but has since been removed by the nurse Reason for continuing: Not indwelling catheter Insertion date: 01/31/18 Insertion time: 16:06 Removal date: 01/31/18 Removal time: 16:06 Indwelling Urethral Catheter Cath placed during this visit: yes, but has since been removed by the nurse Reason for continuing: Acute urinary retention Insertion date: 01/31/18 Insertion time: 16:52 Removal date: 02/03/18 Removal time: 10:50 Results - Labs CBC & Chem 7: 02/07/18 09:07 02/07/18 09:07 Laboratory Results - last 24 hr 02/07/18 02/07/18 09:07 09:07 WBC 8.1 RBC 3.56 L Hgb 11.6 L Hct 34.4 L MCV 96.7 MCH 32.6 MCHC 33.7 RDW 15.4 Plt Count 286 MPV 7.5 Sodium 139 Potassium 4.1 Chloride 105 Carbon Dioxide 27.3 Anion Gap 7 BUN 16 Creatinine 1.10 Estimated GFR 72 L Random Glucose 124 H Calcium 8.2 L Assessment and Plan - Assessment and Plan Left tibial plateau fracture status post external fixation and reduction Nonweightbearing left lower extremity. Elevation and ice Pin care twice daily Bacitracin to all abrasions swelling still not appropriate. restart diet restart lovenox due to amount of swelling, will likely not be ready for surgery for a few days planning to go to OR today to revise exfix due to pressing on skin sign consents Incentive spirometry
[2018-02-08] MEDS ORDERED: ceFAZolin 2 GM Premix Inj 0 GM/0 ML PIGGYBACK IV.SIG ONE (07:36)
[2018-02-08] MEDS: LORazepam 0.5 MG Tablet PO SCH ×2 (07:52→18:07)
[2018-02-08] MEDS ORDERED: Lidocaine PF 1% Inj 5 ML Syringe OTHER ONE (08:28)
[2018-02-08] MEDS ORDERED: Metoprolol Inj 5 MG/5 ML Vial IV.PUSH ONE (08:28)
[2018-02-08] MEDS ORDERED: Succinylcholine Inj 100 MG/5 ML Syringe IV.PUSH ONE (08:28)
[2018-02-08] MEDS ORDERED: Post-op Orders (for Pharmacy) OTHER STA (08:52)
[2018-02-08] MEDS: Divalproex 500 MG DR Tablet PO SCH (08:55)
[2018-02-08] MEDS: Isosorbide Mononitrate 30 MG ER 24HR Tablet (Imdur) PO SCH (08:55)
[2018-02-08] MEDS: Famotidine 20 MG Tablet PO SCH (08:56)
--- NOTE | 2018-02-08 08:58 | P.OP ---
- Preoperative Diagnosis (1) Closed bicondylar fracture of left tibia Date of procedure: 02/08/18 Procedure: Revision of external fixation,closed reduction left tibial plateau with manipulation Anesthesia: NAOMI Surgeon: Dallin Thorne MD Sack Repairer: HEMA Murguia PA-C The surgical procedure was assisted by my physician warehouse assistant. My P.A. presence was necessary throughout this case for the manipulation and positioning of the surgical extremity. My P.A. was assisting me throughout the duration of this procedure. The skill set of a physician warehouse assistant was medically necessary to complete this procedure. During the surgical case the surgical assistant certified was working at the back table and the physician warehouse assistant was directly assisting me. Operation and Findings: Missael was seen and evaluated this morning. He continues to have moderate swelling of the left knee and calf. Soft tissue is not amenable to surgery for open reduction internal fixation at this time. Patient has noticed increased discomfort around the external fixation. In the area of the external fixator bars and clamps are applying some pressure to his skin. I discussed with patient revision of the external fixation with reduction of fracture. Informed consent was obtained. Operative site was marked. He is brought the operating. He is given IV sedation and general anesthesia. Timeout procedure was performed. Procedure began with modification of the external fixation. Clamps were loosened. Clamps and bars were now removed. Traction was applied. The fracture was visualized under fluoroscopy. The fracture was gently manipulated to improve alignment. Fluoroscopy confirmed appropriate reduction of fracture. The external fixation was now tightened. The rods and clamps were moved to a new position to avoid any skin irritation. Final fluoroscopy revealed appropriate alignment of fractures. There is a severely comminuted left proximal tibia fracture. Thigh and calf compartments were palpated. Patient has moderate swelling, but compartments are soft. So dressings were applied. Patient was awakened and transferred to recovery room in stable condition.
[2018-02-08] MEDS ORDERED: Lisinopril 10 MG Tablet PO SCH (09:00)
[2018-02-08] MEDS ORDERED: fentaNYL Citrate Inj 100 MCG/2 ML Ampul ONE (09:11)
[2018-02-08] MEDS: Ketorolac Inj 30 MG/ML (IVP) Vial IV.PUSH SCH ×2 (09:28→18:08)
[2018-02-08] MEDS ORDERED: Sodium Chlor 0.9% Inj 500 ML IV.SIG SCH (10:00)
[2018-02-08] MEDS ORDERED: Chlorhexidine Gluconate 2% 1 Pack (2 Cloths) TOPICAL SCH (10:00)
[2018-02-08] MEDS ORDERED: Metoprolol Tartrate 25 MG Tablet PO SCH (10:00)
--- NOTE | 2018-02-08 10:42 | XR ---
EXAM DATE: 02/08/2018 10:12 AM EDT AGE/SEX: 47 years / Male INDICATIONS: Revision of Ex-Fix on left tibial plateau fracture. CLINICAL DATA: This is the patient's subsequent encounter. Patient reports that signs and symptoms h ave been present for 2 weeks and indicates a pain score of Nonresponsive. MEDICAL/SURGICAL HISTORY: Non-responsive. Non-responsive. COMPARISON: C, TIBIA FIBULA LEFT 2V, 01/30/2018. . FINDINGS: Multiple views of the proximal and mid tibia were obtained using a matrix camera. This again demonstr ates the external fixation device pins in the mid tibia. There is a comminuted proximal tibial fractu re with the fracture fragments in near-anatomic alignment. There is a more distal oblique fracture wh ich is only slightly active. This is not significantly changed. There is no abnormal angulation. CONCLUSION: Stable appearance of the fracture fragments. Electronically signed by: Parag Gordon MD 02/08/2018 10:41 AM EDT
--- NOTE | 2018-02-08 12:14 | P.PNFP ---
Subjective Interval history: Patient seen this morning. We discussed the plan put forth by the orthopedic surgery team, who had stated that they would not be taking him for the second knee surgery due to continued left lower extremity swelling. He states that he is upset that he is in the hospital and that he has not had a second surgery yet. He states that he with like to "return home to help his fiance move into their new house" despite the pins in his legs. He states that he plans to "help her with the small stuff from his chair". We discussed the reasons why the surgical team has postponed his surgery, the risks of him leaving without clearance from orthopedics at length and stated that we strongly recommend that he remain here in the hospital to undergo surgery. Patient voiced understanding. <Nara Castrejon - 02/08/18 13:44> Results - Labs Result diagrams: 02/07/18 09:07 02/07/18 09:07 <Waldo Willis - 02/08/18 14:29> - Imaging Impressions Knee X-Ray 02/08/18 00:00 CONCLUSION: Stable appearance of the fracture fragments. <Waldo Willis - 02/08/18 14:29> Impressions Knee X-Ray 02/08/18 00:00 CONCLUSION: Stable appearance of the fracture fragments. <Nara Castrejon - 02/08/18 12:14> Physical Exam Vital signs: Vital Signs 02/07/18 15:31 02/07/18 16:00 02/07/18 20:00 Temperature 97.9 F 98.3 F Pulse Rate 91 H 93 H 95 H Respiratory Rate 18 16 20 Blood Pressure 119/56 L 125/62 Pulse Oximetry 92 L 96 02/07/18 21:00 02/07/18 23:45 02/08/18 00:00 Temperature 97.9 F Pulse Rate 95 H 100 H Respiratory Rate 16 20 Blood Pressure 143/65 H Pulse Oximetry 99 98 02/08/18 03:58 02/08/18 04:00 02/08/18 08:00 Temperature 97.8 F 97.7 F Pulse Rate 95 H 104 H 94 H Respiratory Rate 18 20 16 Blood Pressure 157/65 H 142/65 H Pulse Oximetry 98 97 02/08/18 09:03 02/08/18 09:15 10/29/18 09:30 Temperature 98.8 F Pulse Rate 94 H 94 H 94 H Respiratory Rate 20 20 20 Blood Pressure 124/59 L 115/59 L 120/60 Pulse Oximetry 95 95 02/08/18 09:40 02/08/18 13:11 Temperature 98.8 F 97.6 F Pulse Rate 94 H 100 H Respiratory Rate 20 Blood Pressure 120/60 108/78 Pulse Oximetry 95 95 Intake & Output 02/07/18 02/08/18 02/08/18 18:59 06:59 18:59 Intake Total 50 / 50 Output Total 350 / 350 Balance -350 / -350 50 / 50 Weight 128.4 kg Intake: Anesthesia Amount 50 / 50 Output: Urine 350 / 350 Other: # Voids 550 Date of Last Bowel Movement 02/06/18 02/06/18 02/06/18 <Waldo Willis - 02/08/18 14:29> Vital Signs 02/07/18 15:31 02/07/18 16:00 02/07/18 20:00 Temperature 97.9 F 98.3 F Pulse Rate 91 H 93 H 95 H Respiratory Rate 18 16 20 Blood Pressure 119/56 L 125/62 Pulse Oximetry 92 L 96 02/07/18 21:00 02/07/18 23:45 02/08/18 00:00 Temperature 97.9 F Pulse Rate 95 H 100 H Respiratory Rate 16 20 Blood Pressure 143/65 H Pulse Oximetry 99 98 02/08/18 03:58 02/08/18 04:00 02/08/18 08:00 Temperature 97.8 F 97.7 F Pulse Rate 95 H 104 H 94 H Respiratory Rate 18 20 16 Blood Pressure 157/65 H 142/65 H Pulse Oximetry 98 97 02/08/18 09:03 02/08/18 09:15 02/08/18 09:30 Temperature 98.8 F Pulse Rate 94 H 94 H 94 H Respiratory Rate 20 20 20 Blood Pressure 124/59 L 115/59 L 120/60 Pulse Oximetry 95 95 02/08/18 09:40 Temperature 98.8 F Pulse Rate 94 H Respiratory Rate Blood Pressure 120/60 Pulse Oximetry 95 Intake & Output 02/07/18 02/08/18 02/08/18 18:59 06:59 18:59 Intake Total 50 / 50 Output Total 350 / 350 Balance -350 / -350 50 / 50 Weight 128.4 kg Intake: Anesthesia Amount 50 / 50 Output: Urine 350 / 350 Other: # Voids 550 Date of Last Bowel Movement 02/06/18 02/06/18 02/06/18 <CashNara B - 02/08/18 12:14> Narrative: Patient refused physical examination at this time. <CashNara Neto - 02/08/18 13:44> - Urinary Catheter Management Indwelling Urethral Catheter Cath placed during this visit: no <Waldo Willis - 02/08/18 14:29> yes, but has since been removed by the nurse <CashNara B - 02/08/18 13:44> Reason for continuing: Acute urinary retention <CashNara B - 02/08/18 12: 14> Insertion date: 01/31/18 <CashNara B - 02/08/18 12:14> Insertion time: 16:52 <CashNara B - 02/08/18 12:14> Removal date: 02/03/18 <CashNara B - 02/08/18 12:14> Removal time: 10:50 <CashNara B - 02/08/18 12:14> Straight Cath placed during this visit: no <Waldo Willis - 02/08/18 14:29> yes, but has since been removed by the nurse <CashNara B - 02/08/18 13:44> Reason for continuing: Not indwelling catheter <CashNara B - 02/08/18 12: 14> Insertion date: 01/31/18 <CashNara B - 02/08/18 12:14> Insertion time: 16:06 <CashNara B - 02/08/18 12:14> Removal date: 01/31/18 <CashNara B - 02/08/18 12:14> Removal time: 16:06 <CashNara B - 02/08/18 12:14> Assessment and Plan - Assessment (1) Fracture of tibial plateau, closed Code(s): S82.143A - Displaced bicondylar fracture of unspecified tibia, initial encounter for closed fracture Status: Acute Plan: Post op #8 status post manual reduction and external fixator placement Pain well controlled with: Tylenol 650 mg PO q4hr PRN pain scale 1-2 Oxycodone 5/325 mg q6hr PRN pain scale 3-5 Oxycodone 10/325 mg q6hr PRN pain scale 6-10 PT consulted, recommend home health care Case management consulted Continue neurovascular checks Orthopedics following: due to LE swelling, surgery postponed for now Encourage use of incentive spirometer and CPAP at night to prevent atelectasis (2) Hypertension Code(s): I10 - Essential (primary) hypertension Status: Chronic Plan: Home medication lisinopril 20 mg daily for better blood pressure control (3) Seizure disorder Code(s): G40.909 - Epilepsy, unspecified, not intractable, without status epilepticus Status: Chronic Plan: Depakote 500 BID Ativan 0.5 mg TID (4) Coronary artery disease Code(s): I25.10 - Atherosclerotic heart disease of [place] coronary artery without angina pectoris Status: Chronic Plan: Continue Imdur, metroprolol and atorvastatin Lisinopril held. (5) Hyperlipidemia Code(s): E78.5 - Hyperlipidemia, unspecified Status: Chronic Plan: Continue home atorvastatin (6) ELLA (obstructive sleep apnea) Code(s): G47.33 - Obstructive sleep apnea (adult) (pediatric) Status: Acute Plan: Encourage CPAP at night. (7) Bipolar disorder Code(s): F31.9 - Bipolar disorder, unspecified Status: Acute Plan: Con't Remeron, seroquel, and lexapro (8) Postoperative urinary retention Code(s): N99.89 - Other postprocedural complications and disorders of genitourinary system; R33.8 - Other retention of urine Status: Acute Plan: Resolved. (9) Nutrition, metabolism, and development symptoms Code(s): R63.8 - Other symptoms and signs concerning food and fluid intake Status: Acute Plan: Insomnia: Mirtazapine 15 mg PO HS Fluids: none Electrolytes: none Diet: Cardiac Diet, NPO after midnight GI prophy: Protonix (10) DVT prophylaxis Status: Acute Plan: DVT prophylaxis: Heparin prophylaxis, hold this afternoon for possible surgery tomorrow SCD and compression hose to non-operative leg Dispo: Pending completion of Ortho procedures; Home w/home health care based on PT recs <Sung,Nara B - 02/08/18 13:30> - Assessment and Plan See the residents documentation for details. I saw and evaluated the patient regarding the [place] portions of this evaluation and agree with the residents findings and plans as written. Parts of this note were created using [employer] voice recognition software program. While efforts were made to correct any mistakes made by this software, some mistakes, errors, and omissions may remain in the final note that were not caught when the note was originally created. Plan of care was discussed and agreed upon with the patient as specifically documented in the above note. An opportunity to ask questions with explanation was provided. Patient voiced understanding on all information reviewed and discussed. <Waldo Willis - 02/08/18 14:29> Patient s/p EFIX, awaiting second LLE surgery. Currently postponed due to swelling. <Nara Castrejon - 02/08/18 13:44>
[2018-02-08 15:20] LABS: Baso # (Auto) 0.1 th/mm3 (0.0-0.2); Baso % (Auto) 0.6 % (0.0-2.0); Eos # (Auto) 0.2 th/mm3 (0.0-0.4); Eos % (Auto) 2.6 % (0.0-4.0); Hematocrit 33.5 % (39.0-51.0); Hemoglobin 11.4 gm/dL (13.0-17.0); Lymph # (Auto) 1.5 th/mm3 (1.0-4.8); Lymph % (Auto) 17.7 % (9.0-44.0); Mean Corpuscular Hemoglobin 32.6 pg (27.0-34.0); Mean Corpuscular Volume 95.9 fL (80.0-100.0); Mean Platelet Volume 7.5 fL (7.0-11.0); Mono # (Auto) 1.3 th/mm3 (0.0-0.9); Mono % (Auto) 14.9 % (0.0-8.0); Neut # (Auto) 5.5 th/mm3 (1.8-7.7); Neut % (Auto) 64.2 % (16.0-70.0); Platelet Count 313 th/mm3 (150-450); Red Cell Distribution Width 15.1 % (11.6-17.2); White Blood Count 8.6 th/mm3 (4.0-11.0)
[2018-02-08 15:36] LABS: Calcium 8.3 mg/dL (8.5-10.1); Potassium 4.2 meq/L (3.5-5.1)
[2018-02-08 15:47] LABS: Eosinophils 2 % (0-4); Lymphocytes 18 % (9-44); Metamyelocytes 1 % (0-1); Monocytes 12 % (0-8); Platelet Estimate Normal (Normal); Platelet Morphology Normal (Normal); RBC Morphology Normal (Normal)
[2018-02-09] MEDS: Gabapentin 400 MG Capsule PO SCH ×4 (00:09→17:51)
[2018-02-09] MEDS: Mirtazapine 15 MG Tablet PO SCH ×2 (00:10→20:41)
[2018-02-09] MEDS: LORazepam 0.5 MG Tablet PO SCH ×3 (00:10→17:51)
[2018-02-09] MEDS: Divalproex 500 MG DR Tablet PO SCH ×3 (00:10→20:41)
[2018-02-09] MEDS: Enoxaparin Inj 30 MG/0.3 ML Syringe SQ SCH ×3 (00:11→22:25)
[2018-02-09] MEDS: Ketorolac Inj 30 MG/ML (IVP) Vial IV.PUSH SCH ×3 (01:00→17:51)
--- NOTE | 2018-02-09 06:40 | P.PNOP ---
Subjective Interval history: s/p revision exfix left tibial plateau fx doing well. states more comfortable. Physical Exam Vital signs: Vital Signs 02/08/18 08:00 02/08/18 09:03 02/08/18 09:15 Temperature 97.7 F 98.8 F Pulse Rate 94 H 94 H 94 H Respiratory Rate 16 20 20 Blood Pressure 142/65 H 124/59 L 115/59 L Pulse Oximetry 97 95 02/08/18 09:30 02/08/18 09:40 02/08/18 13:11 Temperature 98.8 F 97.6 F Pulse Rate 94 H 94 H 100 H Respiratory Rate 20 20 Blood Pressure 120/60 120/60 108/78 Pulse Oximetry 95 95 95 02/08/18 15:00 02/08/18 18:00 02/08/18 19:50 Temperature 98.1 F 98.7 F Pulse Rate 95 H 92 H 107 H Respiratory Rate 14 22 16 Blood Pressure 145/72 H 117/66 Pulse Oximetry 97 94 L 02/08/18 23:45 02/09/18 04:55 Temperature 98.6 F 97.6 F Pulse Rate 94 H 89 Respiratory Rate 16 16 Blood Pressure 147/78 H 132/60 Pulse Oximetry 97 97 Intake & Output 02/08/18 02/08/18 02/09/18 06:59 18:59 06:59 Intake Total 50 / 50 3040 / 3040 Output Total 800 / 800 Balance 50 / 50 2240 / 2240 Weight 128.4 kg 128.5 kg Intake: IV 1000 / 1000 LR 1000 mL Inj 1,000 ML @ 50 1000 / 1000 mls/hr IV.CONT .Q20H [facility] Rx#: [id number] Oral 2039 Anesthesia Amount 50 / 50 Output: Urine 800 / 800 Other: # Voids 550 4 Date of Last Bowel Movement 02/06/18 02/06/18 02/06/18 # Bowel Movements 0 Narrative: LLE: 3+ swelling of lower leg. compartments soft. nvi. +exfix - Urinary Catheter Management Straight Cath placed during this visit: yes, but has since been removed by the nurse Reason for continuing: Not indwelling catheter Insertion date: 01/31/18 Insertion time: 16:06 Removal date: 01/31/18 Removal time: 16:06 Indwelling Urethral Catheter Cath placed during this visit: yes, but has since been removed by the nurse Reason for continuing: Acute urinary retention Insertion date: 01/31/18 Insertion time: 16:52 Removal date: 02/03/18 Removal time: 10:50 Results - Labs CBC & Chem 7: 02/08/18 14:40 02/08/18 14:40 Laboratory Results - last 24 hr 02/05/18 02/08/18 02/08/18 14:17 14:40 14:40 WBC 8.6 RBC 3.50 L Hgb 11.4 L Hct 33.5 L MCV 95.9 MCH 32.6 MCHC 34.0 RDW 15.1 Plt Count 313 MPV 7.5 Prelim Diff (Auto) Slide review pending Neut % (Auto) 64.2 Lymph % (Auto) 17.7 [place] % (Auto) 14.9 H Eos % (Auto) 2.6 Baso % (Auto) 0.6 Neut # (Auto) 5.5 Lymph # (Auto) 1.5 [place] # (Auto) 1.3 H Eos # (Auto) 0.2 Baso # (Auto) 0.1 WBC Differential Manual diff final Seg Neuts % (Manual) 62 Band Neuts % (Manual) 5 Lymphocytes % (Manual) 18 Monocytes % (Manual) 12 H Eosinophils % (Manual) 2 Metamyelocytes % (Man) 1 Abs Neuts (Manual) 5.8 Differential Comment . Platelet Estimate Normal Platelet Morphology Normal RBC Morphology Normal O2 Delivery Device Room air Sodium 141 Potassium 4.2 Chloride 106 Carbon Dioxide 30.0 Anion Gap 5 BUN 20 H Creatinine 1.07 Estimated GFR 74 L Random Glucose 84 Calcium 8.3 L - Imaging Impressions Knee X-Ray 02/08/18 00:00 CONCLUSION: Stable appearance of the fracture fragments. Assessment and Plan - Assessment and Plan Left tibial plateau fracture status post external fixation and reduction Nonweightbearing left lower extremity. Elevation and ice Pin care twice daily Bacitracin to all abrasions swelling still not appropriate. restart diet restart lovenox due to amount of swelling, will likely not be ready for surgery for a few days Incentive spirometry
[2018-02-09 07:28] LABS: Hematocrit 35.7 % (39.0-51.0); Hemoglobin 12.3 gm/dL (13.0-17.0); Mean Corpuscular HGB Conc 34.3 % (32.0-36.0); Mean Platelet Volume 7.6 fL (7.0-11.0); Platelet Count 307 th/mm3 (150-450); Red Blood Count 3.72 mil/mm3 (4.50-5.90); Red Cell Distribution Width 15.3 % (11.6-17.2); White Blood Count 8.5 th/mm3 (4.0-11.0)
[2018-02-09 07:50] LABS: Calcium 8.3 mg/dL (8.5-10.1); Carbon Dioxide 28.9 meq/L (21.0-32.0); Potassium 4.5 meq/L (3.5-5.1)
[2018-02-09] MEDS: Isosorbide Mononitrate 30 MG ER 24HR Tablet (Imdur) PO SCH (09:07)
[2018-02-09] MEDS: oxyCODONE/Acetaminophen 10/325 Tablet PO PRN ×3 (09:08→20:41)
[2018-02-09] MEDS: Famotidine 20 MG Tablet PO SCH (09:58)
--- NOTE | 2018-02-09 11:21 | P.PNFP ---
Subjective Interval history: Patient seen and examined this morning. He states he is feeling better today. He states that he has mild pain in his leg, about the same as yesterday. He is able to move his toes and states that he has no change in sensation or temperature of his foot. He has been working with physical therapy daily. Denies fever, chills, nausea, vomiting, chest pain, shortness of breath, or abdominal pain. <Nara Castrejon - 02/09/18 12:15> Results - Labs Result diagrams: 02/10/18 05:16 02/10/18 05:16 <Waldo Willis - 02/10/18 11:35> Abnormal lab results 02/10/18 02/10/18 Range/Units 05:16 05:16 RBC 3.28 L (4.50-5.90) mil/mm3 Hgb 10.8 L (13.0-17.0) gm/dL Hct 31.9 L (39.0-51.0) % BUN 28 H (7-18) mg/dL Estimated GFR 64 L (>89) mL/min Short CBC 02/10/18 Range/Units 05:16 WBC 8.4 (4.0-11.0) th/mm3 Hgb 10.8 L (13.0-17.0) gm/dL Hct 31.9 L (39.0-51.0) % Plt Count 322 (150-450) th/mm3 BMP 02/10/18 05:16 Sodium 142 Potassium 4.8 Chloride 107 Carbon Dioxide 30.3 BUN 28 H Creatinine 1.21 Calcium 8.6 <Waldo Willis - 02/10/18 11:35> Abnormal lab results 02/08/18 02/08/18 02/09/18 Range/Units 14:40 14:40 06:43 RBC 3.50 L 3.72 L (4.50-5.90) mil/mm3 Hgb 11.4 L 12.3 L (13.0-17.0) gm/dL Hct 33.5 L 35.7 L (39.0-51.0) % [place] % (Auto) 14.9 H (0.0-8.0) % [place] # (Auto) 1.3 H (0.0-0.9) th/mm3 Monocytes % (Manual) 12 H (0-8) % BUN 20 H (7-18) mg/dL Estimated GFR 74 L (>89) mL/min Calcium 8.3 L (8.5-10.1) mg/dL 02/09/18 Range/Units 06:43 RBC (4.50-5.90) mil/mm3 Hgb (13.0-17.0) gm/dL Hct (39.0-51.0) % [place] % (Auto) (0.0-8.0) % [place] # (Auto) (0.0-0.9) th/mm3 Monocytes % (Manual) (0-8) % BUN 26 H (7-18) mg/dL Estimated GFR 77 L (>89) mL/min Calcium 8.3 L (8.5-10.1) mg/dL Short CBC 02/08/18 02/09/18 Range/Units 14:40 06:43 WBC 8.6 8.5 (4.0-11.0) th/mm3 Hgb 11.4 L 12.3 L (13.0-17.0) gm/dL Hct 33.5 L 35.7 L (39.0-51.0) % Plt Count 313 307 (150-450) th/mm3 BMP 02/08/18 02/09/18 14:40 06:43 Sodium 141 141 Potassium 4.2 4.5 Chloride 106 106 Carbon Dioxide 30.0 28.9 BUN 20 H 26 H Creatinine 1.07 1.04 Calcium 8.3 L 8.3 L <Nara Castrejon B - 02/09/18 11:21> Physical Exam Vital signs: Vital Signs 02/09/18 12:00 02/09/18 16:00 02/09/18 20:00 Temperature 98.1 F 97.9 F 98.2 F Pulse Rate 100 H 87 94 H Respiratory Rate 18 18 18 Blood Pressure 102/60 108/57 L 115/62 Pulse Oximetry 93 L 96 97 02/10/18 00:10 02/10/18 03:06 02/10/18 08:00 Temperature 97.9 F 97.0 F L 97.2 F L Pulse Rate 88 82 84 Respiratory Rate 18 18 16 Blood Pressure 115/58 L 116/61 123/75 Pulse Oximetry 98 97 99 Intake & Output 02/09/18 02/10/1818 18:59 06:59 18:59 Intake Total 480 / 480 Balance 480 / 480 Weight 128.5 kg Intake: Oral 480 / 480 Other: # Voids 2 Date of Last Bowel Movement 02/07/18 02/07/18 02/07/18 # Bowel Movements 0 <Waldo Willis - 02/10/18 11:35> Vital Signs 02/08/18 13:11 02/08/18 15:00 02/08/18 18:00 Temperature 97.6 F 98.1 F Pulse Rate 100 H 95 H 92 H Respiratory Rate 20 14 22 Blood Pressure 108/78 145/72 H Pulse Oximetry 95 97 02/08/18 19:50 02/08/18 23:45 02/09/18 04:55 Temperature 98.7 F 98.6 F 97.6 F Pulse Rate 107 H 94 H 89 Respiratory Rate 16 16 16 Blood Pressure 117/66 147/78 H 132/60 Pulse Oximetry 94 L 97 97 02/09/18 08:00 02/09/18 09:33 Temperature 98.6 F Pulse Rate 99 H 101 H Respiratory Rate 18 16 Blood Pressure 124/59 L Pulse Oximetry 95 Intake & Output 02/08/18 02/09/18 02/09/18 18:59 06:59 18:59 Intake Total 50 / 50 3040 / 3040 Output Total 800 / 800 Balance 50 / 50 2240 / 2240 Weight 128.5 kg Intake: IV 1000 / 1000 LR 1000 mL Inj 1,000 ML @ 50 1000 / 1000 mls/hr IV.CONT .Q20H [facility] Rx#: [id number] Oral 2039 / 2039 Anesthesia Amount 50 / 50 Output: Urine 800 / 800 Other: # Voids 4 Date of Last Bowel Movement 02/06/18 02/06/18 02/07/18 # Bowel Movements 0 <Nara Castrejon - 02/09/18 11:21> Narrative: GENERAL: Obese M appearing awake and alert. HEAD: Normocephalic. EYES: No injection or drainage. NECK: Supple, trachea midline. CARDIOVASCULAR: Regular rate and rhythm without murmurs, gallops, or rubs. RESPIRATORY: Breath sounds equal bilaterally, coarse expiratory rhonchi at the lower lung bases. GASTROINTESTINAL: Abdomen soft, non-tender, nondistended. MUSCULOSKELETAL: Swelling of the left extremity without obvious drainage at the external fixator site, able to move both toes. Normal sensation. <Nara Castrejon - 02/09/18 12:15> - Urinary Catheter Management Indwelling Urethral Catheter Cath placed during this visit: no <Katie Willisgeny - 02/10/18 11:35> yes, but has since been removed by the nurse <Nara Castrejon - 02/09/18 12:15> Reason for continuing: Acute urinary retention <Nara Castrejon - 02/09/18 11: 21> Insertion date: 01/31/18 <Nara Castrejon B - 02/09/18 11:21> Insertion time: 16:52 <Nara Castrejon B - 02/09/18 11:21> Removal date: 02/03/18 <Nara Castrejon B - 02/09/18 11:21> Removal time: 10:50 <Nara Castrejon B - 02/09/18 11:21> Straight Cath placed during this visit: no <Waldo Willis - 02/10/18 11:35> yes, but has since been removed by the nurse <Nara Castrejon - 02/09/18 12:15> Reason for continuing: Not indwelling catheter <Nara Castrejon - 02/09/18 11: 21> Insertion date: 01/31/18 <Nara Castrejon B - 02/09/18 11:21> Insertion time: 16:06 <Nara Castrejon - 02/09/18 11:21> Removal date: 01/31/18 <Nara Castrejon B - 02/09/18 11:21> Removal time: 16:06 <Nara Castrejon B - 02/09/18 11:21> Assessment and Plan - Assessment (1) Fracture of tibial plateau, closed Code(s): S82.143A - Displaced bicondylar fracture of unspecified tibia, initial encounter for closed fracture Status: Acute Plan: Post op #9 status post manual reduction and external fixator placement, POD #1 re-positioning of EFIX. Pain well controlled with: Tylenol 650 mg PO q4hr PRN pain scale 1-2 Oxycodone 5/325 mg q6hr PRN pain scale 3-5 Oxycodone 10/325 mg q6hr PRN pain scale 6-10 PT consulted, recommend home health care Case management consulted Continue neurovascular checks Orthopedics following: due to LE swelling, surgery postponed for now Encourage use of incentive spirometer and CPAP at night to prevent atelectasis (2) Seizure disorder Code(s): G40.909 - Epilepsy, unspecified, not intractable, without status epilepticus Status: Chronic Plan: Depakote 500 BID Ativan 0.5 mg TID (3) Hypertension Code(s): I10 - Essential (primary) hypertension Status: Chronic Plan: Home medication lisinopril 20 mg daily for better blood pressure control (4) Coronary artery disease Code(s): I25.10 - Atherosclerotic heart disease of [place] coronary artery without angina pectoris Status: Chronic Plan: Continue Imdur, metroprolol and atorvastatin Lisinopril held. (5) Hyperlipidemia Code(s): E78.5 - Hyperlipidemia, unspecified Status: Chronic Plan: Continue home atorvastatin (6) ELLA (obstructive sleep apnea) Code(s): G47.33 - Obstructive sleep apnea (adult) (pediatric) Status: Acute Plan: Encourage CPAP at night. (7) Bipolar disorder Code(s): F31.9 - Bipolar disorder, unspecified Status: Acute Plan: Con't Remeron, seroquel, and lexapro (8) Postoperative urinary retention Code(s): N99.89 - Other postprocedural complications and disorders of genitourinary system; R33.8 - Other retention of urine Status: Acute Plan: Resolved. (9) Nutrition, metabolism, and development symptoms Code(s): R63.8 - Other symptoms and signs concerning food and fluid intake Status: Acute Plan: Insomnia: Mirtazapine 15 mg PO HS Fluids: none Electrolytes: none Diet: Cardiac Diet, NPO after midnight GI prophy: Protonix (10) DVT prophylaxis Status: Acute Plan: DVT prophylaxis: Heparin prophylaxis, hold this afternoon for possible surgery tomorrow SCD and compression hose to non-operative leg Dispo: Pending completion of Ortho procedures; Home w/home health care based on PT recs <Nara Castrejon - 02/09/18 12:08> - Attending Attestation I have reviewed the patients past medical/surgical and social histories and updated as appropriate. Parts of this note were created using [employer] voice recognition software program. While efforts were made to correct any mistakes made by this software, some mistakes, errors, and omissions may remain in the final note that were not caught when the note was originally created. Plan of care was discussed and agreed upon with the patient as specifically documented in the above note. An opportunity to ask questions with explanation was provided. Medications were reviewed and discussed as appropriate including side effects and risks vs. benefit. Pt. was instructed should any symptoms worsen he should call for an [facility] appointment or report to the emergency department for further evaluation. Patient voiced understanding on all information reviewed and discussed. <Waldo Willis - 02/10/18 11:35>
[2018-02-10] MEDS: Gabapentin 400 MG Capsule PO SCH ×4 (00:59→18:03)
[2018-02-10] MEDS: LORazepam 0.5 MG Tablet PO SCH ×3 (00:59→16:37)
[2018-02-10] MEDS: Ketorolac Inj 30 MG/ML (IVP) Vial IV.PUSH SCH (01:00)
[2018-02-10] MEDS: oxyCODONE/Acetaminophen 10/325 Tablet PO PRN ×5 (03:17→21:20)
[2018-02-10 05:44] LABS: Hematocrit 31.9 % (39.0-51.0); Hemoglobin 10.8 gm/dL (13.0-17.0); Mean Corpuscular HGB Conc 33.8 % (32.0-36.0); Mean Corpuscular Hemoglobin 32.9 pg (27.0-34.0); Mean Corpuscular Volume 97.4 fL (80.0-100.0); Mean Platelet Volume 7.7 fL (7.0-11.0); Platelet Count 322 th/mm3 (150-450); Red Blood Count 3.28 mil/mm3 (4.50-5.90); Red Cell Distribution Width 15.6 % (11.6-17.2); White Blood Count 8.4 th/mm3 (4.0-11.0)
[2018-02-10 06:10] LABS: Calcium 8.6 mg/dL (8.5-10.1); Carbon Dioxide 30.3 meq/L (21.0-32.0); Potassium 4.8 meq/L (3.5-5.1)
--- NOTE | 2018-02-10 06:40 | P.PNOP ---
Subjective Interval history: Comfortably with no new complaints Physical Exam Vital signs: Vital Signs 02/09/18 08:00 02/09/18 09:33 02/09/18 12:00 Temperature 98.6 F 98.1 F Pulse Rate 99 H 101 H 100 H Respiratory Rate 18 16 18 Blood Pressure 124/59 L 102/60 Pulse Oximetry 95 93 L 02/09/18 16:00 02/09/18 20:00 02/10/18 00:10 Temperature 97.9 F 98.2 F 97.9 F Pulse Rate 87 94 H 88 Respiratory Rate 18 18 18 Blood Pressure 108/57 L 115/62 115/58 L Pulse Oximetry 96 97 98 02/10/18 03:06 Temperature 97.0 F L Pulse Rate 82 Respiratory Rate 18 Blood Pressure 116/61 Pulse Oximetry 97 Intake & Output 02/09/18 02/09/18 02/10/18 06:59 18:59 06:59 Intake Total 3040 / 3040 480 / 480 Output Total 800 / 800 Balance 2240 / 2240 480 / 480 Weight 128.5 kg 128.5 kg Intake: IV 1000 / 1000 LR 1000 mL Inj 1,000 ML @ 50 1000 / 1000 mls/hr IV.CONT .Q20H [facility] Rx#: [id number] Oral 2040 / 2040 480 / 480 Output: Urine 800 / 800 Other: # Voids 4 2 Date of Last Bowel Movement 02/06/18 02/07/18 02/07/18 # Bowel Movements 0 0 Narrative: Left lower extremity: External fixator in place. Continued swelling of +3. Intact sensation distally with good capillary refills with active dorsiflexion and plantarflexion of foot - Urinary Catheter Management Straight Cath placed during this visit: yes, but has since been removed by the nurse Reason for continuing: Not indwelling catheter Insertion date: 01/31/18 Insertion time: 16:06 Removal date: 01/31/18 Removal time: 16:06 Indwelling Urethral Catheter Cath placed during this visit: yes, but has since been removed by the nurse Reason for continuing: Acute urinary retention Insertion date: 01/31/18 Insertion time: 16:52 Removal date: 02/03/18 Removal time: 10:50 Results - Labs CBC & Chem 7: 02/10/18 05:16 02/10/18 05:16 Laboratory Results - last 24 hr 02/09/18 02/09/18 02/10/18 06:43 06:43 05:16 WBC 8.5 8.4 RBC 3.72 L 3.28 L Hgb 12.3 L 10.8 L Hct 35.7 L 31.9 L MCV 96.0 97.4 MCH 33.0 32.9 MCHC 34.3 33.8 RDW 15.3 15.6 Plt Count 307 322 MPV 7.6 7.7 Sodium 141 Potassium 4.5 Chloride 106 Carbon Dioxide 28.9 Anion Gap 6 BUN 26 H Creatinine 1.04 Estimated GFR 77 L Random Glucose 85 Calcium 8.3 L 02/10/18 05:16 WBC RBC Hgb Hct MCV MCH MCHC RDW Plt Count MPV Sodium 142 Potassium 4.8 Chloride 107 Carbon Dioxide 30.3 Anion Gap 5 BUN 28 H Creatinine 1.21 Estimated GFR 64 L Random Glucose 89 Calcium 8.6 Assessment and Plan - Assessment and Plan Left tibial plateau fracture status post external fixation and reduction Nonweightbearing left lower extremity. Elevation and ice Pin care twice daily Bacitracin to all abrasions swelling still not appropriate. lovenox due to amount of swelling, will likely not be ready for surgery for a few days Incentive spirometry
[2018-02-10] MEDS: Isosorbide Mononitrate 30 MG ER 24HR Tablet (Imdur) PO SCH ×2 (07:56→09:23)
[2018-02-10] MEDS: Divalproex 500 MG DR Tablet PO SCH ×3 (07:57→21:11)
[2018-02-10] MEDS: Famotidine 20 MG Tablet PO SCH ×2 (07:58→08:54)
--- NOTE | 2018-02-10 08:46 | P.PNFP ---
Subjective Interval history: Vitals wnl overnight. Has not been using CPAP at night, despite machine being at bedside. States he awoke last night w/severe pain associated w/tremors. States he is taking medication for tremors from neurology but in the past, told his neurologist that he thinks it needed to be bumped up. States he did not get pain medication for the pain last night. Denies any other problems or complaints. <Berenice Gordon - 02/10/18 08:46> Results - Labs Result diagrams: 02/10/18 05:16 02/10/18 05:16 <Waldo Willis - 02/10/18 11:49> Abnormal lab results 02/10/18 02/10/18 Range/Units 05:16 05:16 RBC 3.28 L (4.50-5.90) mil/mm3 Hgb 10.8 L (13.0-17.0) gm/dL Hct 31.9 L (39.0-51.0) % BUN 28 H (7-18) mg/dL Estimated GFR 64 L (>89) mL/min Short CBC 02/10/18 Range/Units 05:16 WBC 8.4 (4.0-11.0) th/mm3 Hgb 10.8 L (13.0-17.0) gm/dL Hct 31.9 L (39.0-51.0) % Plt Count 322 (150-450) th/mm3 BMP 02/10/18 05:16 Sodium 142 Potassium 4.8 Chloride 107 Carbon Dioxide 30.3 BUN 28 H Creatinine 1.21 Calcium 8.6 <Waldo Willis - 02/10/18 11:49> Abnormal lab results 02/10/18 02/10/18 Range/Units 05:16 05:16 RBC 3.28 L (4.50-5.90) mil/mm3 Hgb 10.8 L (13.0-17.0) gm/dL Hct 31.9 L (39.0-51.0) % BUN 28 H (7-18) mg/dL Estimated GFR 64 L (>89) mL/min Short CBC 02/10/18 Range/Units 05:16 WBC 8.4 (4.0-11.0) th/mm3 Hgb 10.8 L (13.0-17.0) gm/dL Hct 31.9 L (39.0-51.0) % Plt Count 322 (150-450) th/mm3 BMP 02/10/18 05:16 Sodium 142 Potassium 4.8 Chloride 107 Carbon Dioxide 30.3 BUN 28 H Creatinine 1.21 Calcium 8.6 <Berenice Gordon N - 02/10/18 08:46> Physical Exam Vital signs: Vital Signs 02/09/18 12:00 02/09/18 16:00 02/09/18 20:00 Temperature 98.1 F 97.9 F 98.2 F Pulse Rate 100 H 87 94 H Respiratory Rate 18 18 18 Blood Pressure 102/60 108/57 L 115/62 Pulse Oximetry 93 L 96 97 02/10/18 00:10 02/10/18 03:06 02/10/18 08:00 Temperature 97.9 F 97.0 F L 97.2 F L Pulse Rate 88 82 84 Respiratory Rate 18 18 16 Blood Pressure 115/58 L 116/61 123/75 Pulse Oximetry 98 97 99 Intake & Output 02/09/18 02/10/18 02/10/18 18:59 06:59 18:59 Intake Total 480 / 480 Balance 480 / 480 Weight 128.5 kg Intake: Oral 480 / 480 Other: # Voids 2 Date of Last Bowel Movement 02/07/18 02/07/18 02/07/18 # Bowel Movements 0 <Waldo Willis - 02/10/18 11:49> Vital Signs 02/09/18 09:33 02/09/18 12:00 02/09/18 16:00 Temperature 98.1 F 97.9 F Pulse Rate 101 H 100 H 87 Respiratory Rate 16 18 18 Blood Pressure 102/60 108/57 L Pulse Oximetry 93 L 96 02/09/18 20:00 02/10/18 00:10 02/10/18 03:06 Temperature 98.2 F 97.9 F 97.0 F L Pulse Rate 94 H 88 82 Respiratory Rate 18 18 18 Blood Pressure 115/62 115/58 L 116/61 Pulse Oximetry 97 98 97 Intake & Output 02/09/18 02/10/18 02/10/18 18:59 06:59 18:59 Intake Total 480 / 480 Balance 480 / 480 Weight 128.5 kg Intake: Oral 480 / 480 Other: # Voids 2 Date of Last Bowel Movement 02/07/18 02/07/18 # Bowel Movements 0 <AbidBerenice N - 02/10/18 08:46> Narrative: GENERAL: Obese M appearing awake and alert. HEAD: Normocephalic. EYES: No injection or drainage. NECK: Supple, trachea midline. CARDIOVASCULAR: Regular rate and rhythm without murmurs, gallops, or rubs. RESPIRATORY: Breath sounds equal bilaterally. GASTROINTESTINAL: Abdomen soft, non-tender, nondistended. MUSCULOSKELETAL: Swelling of the left extremity without obvious drainage at the external fixator site, able to move both toes. Normal sensation. <AbidBerenice N - 02/10/18 08:55> - Urinary Catheter Management Indwelling Urethral Catheter Cath placed during this visit: no <Waldo Willis - 02/10/18 11:49> yes, but has since been removed by the nurse <JazminebrittaniBerenice N 02/10/18 08:55> Reason for continuing: Acute urinary retention <AbidBerenice N 02/10/18 08:46 > Insertion date: 01/31/18 <Abid,Berenice N 02/10/18 08:46> Insertion time: 16:52 <Abid,Berenice N 02/10/18 08:46> Removal date: 02/03/18 <Abid,Berenice N 02/10/18 08:46> Removal time: 10:50 <Abid,Berenice N 02/10/18 08:46> Straight Cath placed during this visit: no <Waldo Willis - 02/10/18 11:49> yes, but has since been removed by the nurse <JazminebrittaniBerenice N 02/10/18 08:55> Reason for continuing: Not indwelling catheter <Abid,Berenice N - 02/10/18 08:46 > Insertion date: 01/31/18 <Abid,Berenice N - 02/10/18 08:46> Insertion time: 16:06 <Abid,Berenice N 02/10/18 08:46> Removal date: 01/31/18 <Abid,Berenice N - 02/10/18 08:46> Removal time: 16:06 <Abid,Berenice N 02/10/18 08:46> Assessment and Plan - Assessment (1) Fracture of tibial plateau, closed Code(s): S82.143A - Displaced bicondylar fracture of unspecified tibia, initial encounter for closed fracture Status: Acute Plan: Post op day #10 manual reduction and external fixator placement, POD #2 re- positioning of EFIX. Pain medications optimized Tylenol 650 mg PO q4hr PRN pain scale 1-2 Oxycodone 5/325 mg q6hr PRN pain scale 3-5 Oxycodone 10/325 mg q4hr PRN pain scale 6-10 PT and OT consulted, recommend OT @ rehab and PT@ home w/home health Case management consulted Continue neurovascular checks Orthopedics following: due to LE swelling, surgery postponed for now. Will follow recs/notes Encourage use of incentive spirometer and CPAP at night to prevent atelectasis (2) Seizure disorder Code(s): G40.909 - Epilepsy, unspecified, not intractable, without status epilepticus Status: Chronic Plan: Depakote 500 BID Ativan 0.5 mg TID (3) Hypertension Code(s): I10 - Essential (primary) hypertension Status: Chronic Plan: BP controlled, Home medication lisinopril 10 mg daily held (4) Coronary artery disease Code(s): I25.10 - Atherosclerotic heart disease of [place] coronary artery without angina pectoris Status: Chronic Plan: Continue Imdur, metroprolol and atorvastatin Lisinopril held. (5) Hyperlipidemia Code(s): E78.5 - Hyperlipidemia, unspecified Status: Chronic Plan: Continue home atorvastatin (6) ELLA (obstructive sleep apnea) Code(s): G47.33 - Obstructive sleep apnea (adult) (pediatric) Status: Acute Plan: Encourage CPAP at night. (7) Bipolar disorder Code(s): F31.9 - Bipolar disorder, unspecified Status: Acute Plan: Con't Remeron, seroquel, and lexapro (8) Nutrition, metabolism, and development symptoms Code(s): R63.8 - Other symptoms and signs concerning food and fluid intake Status: Acute Plan: Insomnia: Mirtazapine 15 mg PO HS Fluids: none Electrolytes: none Diet: Cardiac Diet GI prophy: Protonix (9) DVT prophylaxis Status: Acute Plan: DVT prophylaxis: Lovenox SCD and compression hose to non-operative leg Dispo: Pending completion of Ortho procedures; Home w/home health care based on PT recs <Berenice Gordon - 02/10/18 08:46> - Attending Attestation See the residents documentation for details. I saw and evaluated the patient regarding the barreto portions of this evaluation and agree with the residents findings and plans as written. Parts of this note were created using [employer] voice recognition software program. While efforts were made to correct any mistakes made by this software, some mistakes, errors, and omissions may remain in the final note that were not caught when the note was originally created. Plan of care was discussed and agreed upon with the patient as specifically documented in the above note. An opportunity to ask questions with explanation was provided. Patient voiced understanding on all information reviewed and discussed. <Waldo Willis - 02/10/18 11:49>
[2018-02-10] MEDS: Enoxaparin Inj 30 MG/0.3 ML Syringe SQ SCH ×3 (08:54→21:21)
[2018-02-10] MEDS: Mirtazapine 15 MG Tablet PO SCH (21:11)
[2018-02-11] MEDS: LORazepam 0.5 MG Tablet PO SCH ×4 (00:35→23:44)
[2018-02-11] MEDS: Gabapentin 400 MG Capsule PO SCH ×5 (00:35→23:44)
[2018-02-11] MEDS: oxyCODONE/Acetaminophen 10/325 Tablet PO PRN ×6 (03:27→23:44)
--- NOTE | 2018-02-11 07:45 | P.PNOP ---
Subjective Interval history: Resting comfortably no new complaints Physical Exam Vital signs: Vital Signs 02/10/18 08:00 02/10/18 09:30 02/10/18 12:00 Temperature 97.2 F L 97.3 F L Pulse Rate 84 100 H Respiratory Rate 16 18 16 Blood Pressure 123/75 112/58 L Pulse Oximetry 99 95 02/10/18 15:48 02/10/18 16:00 02/10/18 18:02 Temperature 97.9 F Pulse Rate 102 H Respiratory Rate 18 18 18 Blood Pressure 123/79 Pulse Oximetry 95 02/10/18 20:00 02/10/18 20:20 02/11/18 00:30 Temperature 98.2 F 97.8 F Pulse Rate 98 H 101 H 99 H Respiratory Rate 16 16 Blood Pressure 142/75 H 129/66 Pulse Oximetry 97 96 02/11/18 05:35 Temperature 97.9 F Pulse Rate 89 Respiratory Rate 15 Blood Pressure 131/69 Pulse Oximetry 97 Intake & Output 02/10/18 02/11/18 02/11/18 18:59 06:59 18:59 Intake Total 1000 / 1000 1200 / 1200 Output Total 4 / 4 350 / 350 Balance 996 / 996 850 / 850 Weight 128.5 kg Intake: Oral 1000 / 1000 1200 / 1200 Output: Urine 4 / 4 350 / 350 Other: # Voids 1 Date of Last Bowel Movement 02/07/18 02/10/18 # Bowel Movements 1 Narrative: Left lower extremity with external fixator in place. Pin sites are clean. Swelling is continuing to maintain it +3. Intact sensation distally with good capillary refills. - Urinary Catheter Management Straight Cath placed during this visit: yes, but has since been removed by the nurse Reason for continuing: Not indwelling catheter Insertion date: 01/31/18 Insertion time: 16:06 Removal date: 01/31/18 Removal time: 16:06 Indwelling Urethral Catheter Cath placed during this visit: yes, but has since been removed by the nurse Reason for continuing: Acute urinary retention Insertion date: 01/31/18 Insertion time: 16:52 Removal date: 02/03/18 Removal time: 10:50 Results - Labs CBC & Chem 7: 02/10/18 05:16 02/10/18 05:16 Assessment and Plan - Assessment and Plan Left tibial plateau fracture status post external fixation and reduction Nonweightbearing left lower extremity. Elevation and ice Pin care twice daily Bacitracin to all abrasions swelling still not appropriate. N.p.o. after midnight hold Lovenox due to amount of swelling, will likely not be ready for surgery for a few days Incentive spirometry
[2018-02-11] MEDS: Divalproex 500 MG DR Tablet PO SCH ×2 (08:21→20:48)
[2018-02-11] MEDS: Isosorbide Mononitrate 30 MG ER 24HR Tablet (Imdur) PO SCH (08:21)
[2018-02-11] MEDS: Ketorolac Inj 30 MG/ML (IVP) Vial IV.PUSH SCH ×3 (08:22→18:32)
[2018-02-11] MEDS: Famotidine 20 MG Tablet PO SCH (08:22)
--- NOTE | 2018-02-11 08:50 | P.PNFP ---
Subjective Interval history: Patient seen and examined this morning. He has no complaints at this time. Denies chest pain, shortness of breath, fever or chills. He states that his pain is well controlled. He states that he does not want to use his CPAP at night, but does want to continue breathing treatments as he believes that they have helped significantly. Discussed the importance of using the CPAP at night with the patient due to history of sleep apnea, who voiced understanding. This morning he was told by orthopedics that they will likely be taking him to the OR tomorrow morning. <Nara Castrejon - 02/11/18 09:58> Results - Labs Result diagrams: 02/10/18 05:16 02/10/18 05:16 <Waldo Willis - 02/11/18 15:14> Physical Exam Vital signs: Vital Signs 02/10/18 15:48 02/10/18 16:00 02/10/18 18:02 Temperature 97.9 F Pulse Rate 102 H Respiratory Rate 18 18 18 Blood Pressure 123/79 Pulse Oximetry 95 02/10/18 20:00 02/10/18 20:20 02/11/18 00:30 Temperature 98.2 F 97.8 F Pulse Rate 98 H 101 H 99 H Respiratory Rate 16 16 Blood Pressure 142/75 H 129/66 Pulse Oximetry 97 96 02/11/18 05:35 02/11/18 08:12 02/11/18 08:23 Temperature 97.9 F 98.0 F Pulse Rate 89 95 H Respiratory Rate 15 14 18 Blood Pressure 131/69 139/70 Pulse Oximetry 97 97 02/11/18 10:28 02/11/18 12:00 02/11/18 12:03 Temperature 98.0 F Pulse Rate 83 Respiratory Rate 14 14 12 Blood Pressure 146/78 H Pulse Oximetry 96 02/11/18 13:36 Temperature Pulse Rate Respiratory Rate 12 Blood Pressure Pulse Oximetry Intake & Output 02/10/18 02/11/18 02/11/18 18:59 06:59 18:59 Intake Total 1000 / 1000 1200 / 1200 Output Total 350 / 350 Balance 996 / 996 850 / 850 Weight 128.5 kg Intake: Oral 1000 / 1000 1200 / 1200 Output: Urine 350 / 350 Other: # Voids 1 Date of Last Bowel Movement 1002/10/18 02/10/18 # Bowel Movements 1 <Waldo Willis - 02/11/18 15:14> Vital Signs 02/10/18 09:30 02/10/18 12:00 02/10/18 15:48 Temperature 97.3 F L Pulse Rate 100 H Respiratory Rate 18 16 18 Blood Pressure 112/58 L Pulse Oximetry 95 02/10/18 16:00 02/10/18 18:02 02/10/18 20:00 Temperature 97.9 F Pulse Rate 102 H 98 H Respiratory Rate 18 18 Blood Pressure 123/79 Pulse Oximetry 95 02/10/18 20:20 02/11/18 00:30 02/11/18 05:35 Temperature 98.2 F 97.8 F 97.9 F Pulse Rate 101 H 99 H 89 Respiratory Rate 16 16 15 Blood Pressure 142/75 H 129/66 131/69 Pulse Oximetry 97 96 97 02/11/18 08:23 Temperature Pulse Rate Respiratory Rate 18 Blood Pressure Pulse Oximetry Intake & Output 02/10/18 02/11/18 02/11/18 18:59 06:59 18:59 Intake Total 1000 / 1000 1200 / 1200 Output Total 4 / 4 350 / 350 Balance 996 / 996 850 / 850 Weight 128.5 kg Intake: Oral 1000 / 1000 1200 / 1200 Output: Urine 4 / 4 350 / 350 Other: # Voids 1 Date of Last Bowel Movement 02/07/18 02/10/18 02/10/18 # Bowel Movements 1 <Nara Castrejon - 02/11/18 08:50> Narrative: GENERAL: Obese M appearing awake and alert. HEAD: Normocephalic. EYES: No injection or drainage. NECK: Supple, trachea midline. CARDIOVASCULAR: Regular rate and rhythm without murmurs, gallops, or rubs. RESPIRATORY: Breath sounds equal bilaterally. GASTROINTESTINAL: Abdomen soft, non-tender, nondistended. MUSCULOSKELETAL: Swelling of the left extremity without obvious drainage at the external fixator site, able to move both toes. Normal sensation. Capillary refill less than 2 seconds. Healing abrasion on left forearm. <Nara Castrejon - 02/11/18 09:58> - Urinary Catheter Management Indwelling Urethral Catheter Cath placed during this visit: no <Waldo Willis - 02/11/18 15:12> yes, but has since been removed by the nurse <Nara Castrejon - 02/11/18 09:58> Reason for continuing: Acute urinary retention <Nara Castrejon - 02/11/18 08: 50> Insertion date: 01/31/18 <Nara Castrejon - 02/11/18 08:50> Insertion time: 16:52 <Nara Castrejon 02/11/18 08:50> Removal date: 02/03/18 <Nara Castrejon 02/11/18 08:50> Removal time: 10:50 <Nara Castrejon 02/11/18 08:50> Straight Cath placed during this visit: no <Waldo Willis - 02/11/18 15:12> yes, but has since been removed by the nurse <Nara Castrejon Neto - 02/11/18 09:58> Reason for continuing: Not indwelling catheter <CashNara Duque 02/11/18 08: 50> Insertion date: 01/31/18 <Nara Castrejon 02/11/18 08:50> Insertion time: 16:06 <Nara Castrejon 02/11/18 08:50> Removal date: 01/31/18 <Nara Castrejon 02/11/18 08:50> Removal time: 16:06 <Nara Castrejon 02/11/18 08:50> Assessment and Plan - Assessment (1) Fracture of tibial plateau, closed Code(s): S82.143A - Displaced bicondylar fracture of unspecified tibia, initial encounter for closed fracture Status: Acute Plan: Post op day #10 manual reduction and external fixator placement, POD #2 re- positioning of EFIX. Pain medications optimized Tylenol 650 mg PO q4hr PRN pain scale 1-2 Oxycodone 5/325 mg q6hr PRN pain scale 3-5 Oxycodone 10/325 mg q4hr PRN pain scale 6-10 PT and OT consulted, recommend OT @ rehab and PT@ home w/home health Case management consulted Continue neurovascular checks Orthopedics following: Plan to take patient back to OR 02/12. Added Toradol 15mg IV x4 doses prior to surgery. Encourage use of incentive spirometer and CPAP at night to prevent atelectasis (2) Seizure disorder Code(s): G40.909 - Epilepsy, unspecified, not intractable, without status epilepticus Status: Chronic Plan: Depakote 500 BID Ativan 0.5 mg TID (3) Hypertension Code(s): I10 - Essential (primary) hypertension Status: Chronic Plan: BP controlled, Home medication lisinopril 10 mg daily held (4) Coronary artery disease Code(s): I25.10 - Atherosclerotic heart disease of [place] coronary artery without angina pectoris Status: Chronic Plan: Continue Imdur, metroprolol and atorvastatin Lisinopril held. (5) Hyperlipidemia Code(s): E78.5 - Hyperlipidemia, unspecified Status: Chronic Plan: Continue home atorvastatin (6) ELLA (obstructive sleep apnea) Code(s): G47.33 - Obstructive sleep apnea (adult) (pediatric) Status: Acute Plan: Encourage CPAP at night. (7) Bipolar disorder Code(s): F31.9 - Bipolar disorder, unspecified Status: Acute Plan: Con't Remeron, seroquel, and lexapro (8) Nutrition, metabolism, and development symptoms Code(s): R63.8 - Other symptoms and signs concerning food and fluid intake Status: Acute Plan: Insomnia: Mirtazapine 15 mg PO HS Fluids: none Electrolytes: none Diet: Cardiac Diet GI prophy: Protonix (9) DVT prophylaxis Status: Acute Plan: DVT prophylaxis: Lovenox SCD and compression hose to non-operative leg Dispo: Pending completion of Ortho procedures; Home w/home health care based on PT recs <Nara Castrejon - 02/11/18 09:51> - Attending Attestation See the residents documentation for details. I saw and evaluated the patient regarding the barreto portions of this evaluation and agree with the residents findings and plans as written. Parts of this note were created using [employer] voice recognition software program. While efforts were made to correct any mistakes made by this software, some mistakes, errors, and omissions may remain in the final note that were not caught when the note was originally created. Plan of care was discussed and agreed upon with the patient as specifically documented in the above note. An opportunity to ask questions with explanation was provided. Patient voiced understanding on all information reviewed and discussed. <Waldo Willis - 02/11/18 15:12>
--- NOTE | 2018-02-11 15:01 | P.PNADD ---
Addendum to Inpatient Note Reason for Addendum: Additional Documentation Additional information: 02/11/18 at 14:15PM Informed by nurse, the patient does not want to be full code. 02/11/18 at 14:30PM Spoke to patient at bedside who states that he wants to be changed from Full code to DNR. Patient was originally placed as a Full Code on admission. Discussed this change in code status at length to confirm patient's wishes. He states that if he were to go into cardiac arrest he does not want compressions performed and will not accept other medical interventions, including ACLS medications or shocks. He does not want to be intubated and went as far as to say that if he had a cardiac arrest during a surgery, he "would want everyone to step away from the table". We will change his code status to DNR to reflect his wishes. Patient states that he has signed a community DNR and has assigned his mother as his health care surrogate, should he becomes incapacitated and would not be able to make his own decisions.
--- NOTE | 2018-02-11 19:07 | XR ---
EXAM DATE: 02/11/2018 6:23 PM EDT AGE/SEX: 47 years / Male INDICATIONS: Patient fell with external fixator left tibia. CLINICAL DATA: This is the patient's initial encounter. Patient reports that signs and symptoms have been present for 2 weeks and indicates a pain score of 10/10. MEDICAL/SURGICAL HISTORY: None. None. COMPARISON: [facility] – [place], [place], FEMUR LEFT 2V, 01/30/2018. . FINDINGS: Multiple views of the femur were obtained and demonstrate interval placement of external fixation dev ice with 2 metal pins through the mid femur. The known fracture deformity of the proximal tibia is pa rtially visualized. The hip is intact. CONCLUSION: Status post placement of external fixation device. Electronically signed by: Parag Gordon MD 02/11/2018 7:05 PM EDT
--- NOTE | 2018-02-11 19:08 | XR ---
EXAM DATE: 02/11/2018 6:26 PM EDT AGE/SEX: 47 years / Male INDICATIONS: Patient fell with external fixator on left tibia. CLINICAL DATA: This is the patient's subsequent encounter. Patient reports that signs and symptoms h ave been present for 1 week and indicates a pain score of 10/10. MEDICAL/SURGICAL HISTORY: None. None. COMPARISON: [facility] – [place], TIBIA FIBULA LEFT 2V, 01/30/2018. . FINDINGS: Multiple views of the left tibia and fibula were obtained and demonstrate placement of external fixat ion device with 2 pins through the mid tibia. The comminuted fracture deformity of the proximal tibia is again visualized. The main fracture fragments are distracted approximately 2 cm on the AP view. T here is no abnormal angulation. There is diffuse soft tissue swelling. CONCLUSION: Interval placement of external fixation device. Electronically signed by: Parag Gordon MD 02/11/2018 7:07 PM EDT
[2018-02-11] MEDS: Mirtazapine 15 MG Tablet PO SCH (20:48)
[2018-02-11] MEDS ORDERED: Chlorhexidine Gluconate 2% 1 Pack (2 Cloths) TOPICAL ONE (21:48)
[2018-02-11] MEDS ORDERED: Sodium Chlor 0.9% Inj 500 ML IV.SIG SCH (22:00)
[2018-02-12] MEDS: Ketorolac Inj 30 MG/ML (IVP) Vial IV.PUSH SCH (02:10)
[2018-02-12] MEDS: Gabapentin 400 MG Capsule PO SCH ×3 (06:22→17:00)
[2018-02-12] MEDS: oxyCODONE/Acetaminophen 10/325 Tablet PO PRN ×4 (06:22→20:35)
--- NOTE | 2018-02-12 06:26 | P.PNOP ---
Subjective Interval history: Reported fall yesterday on floor. Also reported that he has not been elevating his left lower extremity at all times. Physical Exam Vital signs: Vital Signs 02/11/18 08:12 02/11/18 08:23 02/11/18 10:28 Temperature 98.0 F Pulse Rate 95 H Respiratory Rate 14 18 14 Blood Pressure 139/70 Pulse Oximetry 97 02/11/18 12:00 02/11/18 12:03 02/11/18 13:36 Temperature 98.0 F Pulse Rate 83 Respiratory Rate 14 12 12 Blood Pressure 146/78 H Pulse Oximetry 96 02/11/18 17:00 02/11/18 18:33 02/11/18 19:10 Temperature 98.2 F Pulse Rate 90 Respiratory Rate 12 14 5 L Blood Pressure 137/60 Pulse Oximetry 95 02/11/18 19:55 02/11/18 20:00 02/11/18 20:58 Temperature 98.0 F 98.5 F Pulse Rate 99 H 94 H 91 H Respiratory Rate 17 17 Blood Pressure 133/85 136/78 Pulse Oximetry 94 L 96 02/11/18 21:58 02/11/18 22:58 02/11/18 23:45 Temperature 98.1 F 98.1 F Pulse Rate 97 H 99 H 86 Respiratory Rate 18 17 Blood Pressure 132/64 107/56 L Pulse Oximetry 96 94 L 02/12/18 00:20 02/12/18 02:58 02/12/18 04:00 Temperature 98.1 F 97.3 F L Pulse Rate 81 91 H 85 Respiratory Rate 16 18 Blood Pressure 116/63 118/55 L Pulse Oximetry 96 99 02/12/18 05:25 Temperature 97.5 F L Pulse Rate 90 Respiratory Rate 16 Blood Pressure 119/62 Pulse Oximetry 97 Intake & Output 02/11/18 02/11/18 02/12/18 06:59 18:59 06:59 Intake Total 1200 / 1200 480 / 480 600 / 600 Output Total 350 / 350 400 / 400 350 / 350 Balance 850 / 850 80 / 80 250 / 250 Weight 128.5 kg 128.4 kg Intake: Oral 1200 / 1200 480 / 480 600 / 600 Output: Urine 350 / 350 400 / 400 350 / 350 Other: # Voids 1 Date of Last Bowel Movement 02/10/18 02/10/18 02/10/18 Narrative: Left lower extremity: External fixator in place and appears to be intact. Greater swelling than yesterday since fall. Intact sensation distally with active dorsiflexion and plantarflexion of foot - Urinary Catheter Management Straight Cath placed during this visit: yes, but has since been removed by the nurse Reason for continuing: Not indwelling catheter Insertion date: 01/31/18 Insertion time: 16:06 Removal date: 01/31/18 Removal time: 16:06 Indwelling Urethral Catheter Cath placed during this visit: yes, but has since been removed by the nurse Reason for continuing: Acute urinary retention Insertion date: 01/31/18 Insertion time: 16:52 Removal date: 02/03/18 Removal time: 10:50 Results - Labs CBC & Chem 7: 02/10/18 05:16 02/10/18 05:16 - Imaging Impressions Femur X-Ray 02/11/18 17:44 CONCLUSION: Status post placement of external fixation device. Tibia/Fibula X-Ray 02/11/18 17:44 CONCLUSION: Interval placement of external fixation device. Assessment and Plan - Assessment and Plan Left tibial plateau fracture status post external fixation and reduction Nonweightbearing left lower extremity. Elevation and ice Pin care twice daily Bacitracin to all abrasions 2 swollen for surgery N.p.o. after midnight on Thursday night Resume heparin and stop Thursday We will plan on possible surgery on Thursday if swelling has improved Incentive spirometry
[2018-02-12] MEDS: Divalproex 500 MG DR Tablet PO SCH ×2 (09:40→20:34)
[2018-02-12] MEDS: LORazepam 0.5 MG Tablet PO SCH ×2 (09:40→16:55)
[2018-02-12] MEDS: Heparin - SQ 10,000 UNITS/ML Vial SQ SCH ×3 (09:40→22:35)
[2018-02-12] MEDS: Famotidine 20 MG Tablet PO SCH (09:40)
[2018-02-12] MEDS: Isosorbide Mononitrate 30 MG ER 24HR Tablet (Imdur) PO SCH (09:42)
--- NOTE | 2018-02-12 11:08 | P.PNFP ---
Subjective Interval history: Patient states that yesterday, he was walking around on his external fixator and slipped and fell. Per nursing, his surgery is now delayed to Thursday. Has been advised to elevate legs and apply ice. Has not been using CPAP. Wants something for pain, morphine has helped in the past. Says he shouldn't be in this much pain, which is worsened when he has a tremor. States that he will no longer walk around the his legs. <Berenice Gordon - 02/12/18 11:08> Results - Labs Result diagrams: 02/10/18 05:16 02/10/18 05:16 <Waldo Willis - 02/12/18 14:04> - Imaging Impressions Femur X-Ray 02/11/18 17:44 CONCLUSION: Status post placement of external fixation device. Tibia/Fibula X-Ray 02/11/18 17:44 CONCLUSION: Interval placement of external fixation device. <Waldo Willis - 02/12/18 14:04> Impressions Femur X-Ray 02/11/18 17:44 CONCLUSION: Status post placement of external fixation device. Tibia/Fibula X-Ray 02/11/18 17:44 CONCLUSION: Interval placement of external fixation device. <Berenice Gordon - 02/12/18 11:08> Physical Exam Vital signs: Vital Signs 02/11/18 17:00 02/11/18 18:33 02/11/18 19:10 Temperature 98.2 F Pulse Rate 90 Respiratory Rate 12 14 5 L Blood Pressure 137/60 Pulse Oximetry 95 02/11/18 19:55 02/11/18 20:00 02/11/18 20:58 Temperature 98.0 F 98.5 F Pulse Rate 99 H 94 H 91 H Respiratory Rate 17 17 Blood Pressure 133/85 136/78 Pulse Oximetry 94 L 96 02/11/18 21:58 02/11/18 22:58 02/11/18 23:45 Temperature 98.1 F 98.1 F Pulse Rate 97 H 99 H 86 Respiratory Rate 18 17 Blood Pressure 132/64 107/56 L Pulse Oximetry 96 94 L 02/12/18 00:20 02/12/18 02:58 02/12/18 04:00 Temperature 98.1 F 97.3 F L Pulse Rate 81 91 H 85 Respiratory Rate 16 18 Blood Pressure 116/63 118/55 L Pulse Oximetry 96 99 02/12/18 05:25 02/12/18 06:58 02/12/18 07:00 Temperature 97.5 F L 98 F Pulse Rate 90 92 H Respiratory Rate 16 18 5 L Blood Pressure 119/62 111/59 L Pulse Oximetry 97 98 02/12/18 08:00 02/12/18 12:00 Temperature 97.8 F 99.2 F Pulse Rate 101 H 98 H Respiratory Rate 18 18 Blood Pressure 142/83 H 124/77 Pulse Oximetry 98 95 Intake & Output 02/11/18 02/12/18 02/12/18 18:59 06:59 18:59 Intake Total 480 / 480 600 / 600 Output Total 400 / 400 350 / 350 Balance 80 / 80 250 / 250 Weight 128.4 kg Intake: Oral 480 / 480 600 / 600 Output: Urine 400 / 400 350 / 350 Other: Date of Last Bowel Movement 02/10/18 02/10/18 <Waldo Willis - 02/12/18 14:04> Vital Signs 02/11/18 12:00 02/11/18 12:03 02/11/18 13:36 Temperature 98.0 F Pulse Rate 83 Respiratory Rate 14 12 12 Blood Pressure 146/78 H Pulse Oximetry 96 02/11/18 17:00 02/11/18 18:33 02/11/18 19:10 Temperature 98.2 F Pulse Rate 90 Respiratory Rate 12 14 5 L Blood Pressure 137/60 Pulse Oximetry 95 02/11/18 19:55 02/11/18 20:00 02/11/18 20:58 Temperature 98.0 F 98.5 F Pulse Rate 99 H 94 H 91 H Respiratory Rate 17 17 Blood Pressure 133/85 136/78 Pulse Oximetry 94 L 96 02/11/18 21:58 02/11/18 22:58 02/11/18 23:45 Temperature 98.1 F 98.1 F Pulse Rate 97 H 99 H 86 Respiratory Rate 18 17 Blood Pressure 132/64 107/56 L Pulse Oximetry 96 94 L 02/12/18 00:20 02/12/18 02:58 02/12/18 04:00 Temperature 98.1 F 97.3 F L Pulse Rate 81 91 H 85 Respiratory Rate 16 18 Blood Pressure 116/63 118/55 L Pulse Oximetry 96 99 02/12/18 05:25 02/12/18 06:58 02/12/18 07:00 Temperature 97.5 F L 98 F Pulse Rate 90 92 H Respiratory Rate 16 18 5 L Blood Pressure 119/62 111/59 L Pulse Oximetry 97 98 02/12/18 08:00 Temperature 97.8 F Pulse Rate 101 H Respiratory Rate 18 Blood Pressure 142/83 H Pulse Oximetry 98 Intake & Output 02/11/18 02/12/18 02/12/18 18:59 06:59 18:59 Intake Total 480 / 480 600 / 600 Output Total 400 / 400 350 / 350 Balance 80 / 80 250 / 250 Weight 128.4 kg Intake: Oral 480 / 480 600 / 600 Output: Urine 400 / 400 350 / 350 Other: Date of Last Bowel Movement 02/10/18 02/10/18 <Berenice Gordon - 02/12/18 11:08> Narrative: GENERAL: Obese man in no acute distress, resting in bed. SKIN: Warm and dry. HEAD: Atraumatic. Normocephalic. EYES: normal EOM NECK: Trachea midline. CARDIOVASCULAR: Regular rate and rhythm. RESPIRATORY: No accessory muscle use. Clear to auscultation. Breath sounds equal bilaterally. GASTROINTESTINAL: Abdomen obese. MUSCULOSKELETAL: Extremities with edema worse in the left more than the right. NEUROLOGICAL: Awake and alert. No obvious cranial nerve deficits. PSYCHIATRIC: Appropriate mood and affect; insight and judgement questionable <Berenice Gordon - 02/12/18 11:08> - Urinary Catheter Management Indwelling Urethral Catheter Cath placed during this visit: no <Waldo Willis - 02/12/18 14:04> yes, but has since been removed by the nurse <Berenice Gordon - 02/12/18 11:08> Reason for continuing: Acute urinary retention <Berenice Gordon 02/12/18 11:08 > Insertion date: 01/31/18 <Berenice Gordon 02/12/18 11:08> Insertion time: 16:52 <Berenice Gordon 02/12/18 11:08> Removal date: 02/03/18 <Berenice Gordon 02/12/18 11:08> Removal time: 10:50 <Berenice Gordon - 02/12/18 11:08> Straight Cath placed during this visit: no <Waldo Willis - 02/12/18 14:04> yes, but has since been removed by the nurse <Berenice Gordon N - 02/12/18 11:08> Reason for continuing: Not indwelling catheter <Berenice Gordon - 02/12/18 11:08 > Insertion date: 01/31/18 <Berenice Gordon - 02/12/18 11:08> Insertion time: 16:06 <Berenice Gordon - 02/12/18 11:08> Removal date: 01/31/18 <Berenice Gordon N - 02/12/18 11:08> Removal time: 16:06 <Berenice Gordon - 02/12/18 11:08> Assessment and Plan - Assessment (1) Fracture of tibial plateau, closed Code(s): S82.143A - Displaced bicondylar fracture of unspecified tibia, initial encounter for closed fracture Status: Acute Plan: Post op day #11 manual reduction and external fixator placement, POD #3 re- positioning of EFIX. Pain medications optimized Tylenol 650 mg PO q4hr PRN pain scale 1-2 Oxycodone 5/325 mg q6hr PRN pain scale 3-5 Oxycodone 10/325 mg q4hr PRN pain scale 6-10 Morphine 2 mg q8hr PRN breakthrough Will avoid further sedating medication PT and OT consulted, recommend OT @ rehab and PT@ home w/home health Orthopedics following: Plan to take patient to OR Thursday, needs NPO and Heparin until then Ice and elevation for swelling Encourage use of incentive spirometer, patient has refused CPAP (2) Seizure disorder Code(s): G40.909 - Epilepsy, unspecified, not intractable, without status epilepticus Status: Chronic Plan: Depakote 500 BID Ativan 0.5 mg TID (3) Coronary artery disease Code(s): I25.10 - Atherosclerotic heart disease of elim [place] coronary artery without angina pectoris Status: Chronic Plan: Continue Imdur, metroprolol and atorvastatin Lisinopril held. (4) Hypertension Code(s): I10 - Essential (primary) hypertension Status: Chronic Plan: BP controlled, Home medication lisinopril 10 mg daily held (5) Hyperlipidemia Code(s): E78.5 - Hyperlipidemia, unspecified Status: Chronic Plan: Continue home atorvastatin (6) Bipolar disorder Code(s): F31.9 - Bipolar disorder, unspecified Status: Acute Plan: Con't Remeron, seroquel, and lexapro (7) Nutrition, metabolism, and development symptoms Code(s): R63.8 - Other symptoms and signs concerning food and fluid intake Status: Acute Plan: Insomnia: Mirtazapine 15 mg PO HS Fluids: none Electrolytes: none Diet: Cardiac Diet GI prophy: Protonix (8) DVT prophylaxis Status: Acute Plan: DVT prophylaxis: Lovenox SCD and compression hose to non-operative leg Dispo: Pending completion of Ortho procedures; Home w/home health care based on PT recs <Berenice Gordon - 02/12/18 10:52> - Attending Attestation See the residents documentation for details. I saw and evaluated the patient regarding the barreto portions of this evaluation and agree with the residents findings and plans as written. Parts of this note were created using [employer] voice recognition software program. While efforts were made to correct any mistakes made by this software, some mistakes, errors, and omissions may remain in the final note that were not caught when the note was originally created. Plan of care was discussed and agreed upon with the patient as specifically documented in the above note. An opportunity to ask questions with explanation was provided. Patient voiced understanding on all information reviewed and discussed. <Waldo Willis - 02/12/18 14:04>
[2018-02-12] MEDS: Morphine Inj 4 MG/ML Vial IV.PUSH PRN (18:06)
[2018-02-12] MEDS: Mirtazapine 15 MG Tablet PO SCH (20:34)
[2018-02-13] MEDS: Gabapentin 400 MG Capsule PO SCH ×5 (00:43→23:34)
[2018-02-13] MEDS: LORazepam 0.5 MG Tablet PO SCH ×4 (00:43→23:34)
[2018-02-13] MEDS: oxyCODONE/Acetaminophen 10/325 Tablet PO PRN ×4 (00:43→16:55)
[2018-02-13] MEDS: Heparin - SQ 10,000 UNITS/ML Vial SQ SCH ×4 (06:09→22:15)
[2018-02-13] MEDS: Famotidine 20 MG Tablet PO SCH (08:28)
[2018-02-13] MEDS: Divalproex 500 MG DR Tablet PO SCH ×2 (08:29→20:45)
[2018-02-13] MEDS: Isosorbide Mononitrate 30 MG ER 24HR Tablet (Imdur) PO SCH (08:29)
--- NOTE | 2018-02-13 08:39 | P.PNFP ---
Addendum entered and electronically signed by Berenice Gordon MD, R2 02/13/18 11 :15: Hx of CABG x4, on cardiac tele Original Note: Subjective Interval history: Pain is better controlled today. No new problems, no SOB, chest pain, or vision changes. Sleeping in bed with legs elevated above heart. Vitals stable overnight. <Berenice Gordon - 02/13/18 11:15> Results - Labs Result diagrams: 02/10/18 05:16 02/10/18 05:16 <Waldo Willis - 02/13/18 13:04> Physical Exam Vital signs: Vital Signs 02/12/18 16:00 02/12/18 20:00 02/12/18 20:23 Temperature 97.9 F 98 F Pulse Rate 93 H 95 H 93 H Respiratory Rate 18 18 Blood Pressure 115/57 L 126/76 Pulse Oximetry 96 02/12/18 22:58 02/13/18 00:00 02/13/18 04:00 Temperature 98.2 F 97.6 F 97.4 F L Pulse Rate 96 H 86 84 Respiratory Rate 19 18 20 Blood Pressure 132/71 118/70 119/72 Pulse Oximetry 97 95 95 02/13/18 08:00 02/13/18 12:00 Temperature 97.3 F L 97.9 F Pulse Rate 101 H 92 H Respiratory Rate 18 18 Blood Pressure 169/80 H 131/68 Pulse Oximetry 96 95 Intake & Output 02/12/18 02/13/18 02/13/18 18:59 06:59 18:59 Intake Total 960 / 960 720 / 720 Output Total 900 / 900 Balance 960 / 960 -180 / -180 Intake: Oral 960 / 960 720 / 720 Output: Urine 900 / 900 Other: # Voids 3 Date of Last Bowel Movement 02/10/18 02/11/18 <Waldo Willis - 02/13/18 13:04> Vital Signs 02/12/18 12:00 02/12/18 16:00 02/12/18 20:00 Temperature 99.2 F 97.9 F 98 F Pulse Rate 98 H 93 H 95 H Respiratory Rate 18 18 18 Blood Pressure 124/77 115/57 L 126/76 Pulse Oximetry 95 96 02/12/18 20:23 02/12/18 22:58 02/13/18 00:00 Temperature 98.2 F 97.6 F Pulse Rate 93 H 96 H 86 Respiratory Rate 19 18 Blood Pressure 132/71 118/70 Pulse Oximetry 97 95 02/13/18 04:00 Temperature 97.4 F L Pulse Rate 84 Respiratory Rate 20 Blood Pressure 119/72 Pulse Oximetry 95 Intake & Output 02/12/18 02/13/18 02/13/18 18:59 06:59 18:59 Intake Total 960 / 960 720 / 720 Output Total 900 / 900 Balance 960 / 960 -180 / -180 Intake: Oral 960 / 960 720 / 720 Output: Urine 900 / 900 Other: # Voids 3 Date of Last Bowel Movement 02/10/18 <Berenice Gordon 02/13/18 08:39> Narrative: GENERAL: SKIN: Warm and dry. HEAD: Normocephalic. EYES: No scleral icterus. No injection or drainage. NECK: Supple, trachea midline. No JVD or lymphadenopathy. CARDIOVASCULAR: Regular rate and rhythm without murmurs, gallops, or rubs. RESPIRATORY: Breath sounds equal bilaterally. No accessory muscle use. GASTROINTESTINAL: Abdomen obese. MUSCULOSKELETAL: No cyanosis, or edema. BACK: Nontender without obvious deformity. <Berenice Gordon 02/13/18 11:15> - Urinary Catheter Management Indwelling Urethral Catheter Cath placed during this visit: no <Waldo Willis - 02/13/18 13:04> yes, but has since been removed by the nurse <Berenice Gordon 02/13/18 11:15> Reason for continuing: Acute urinary retention <Berenice Gordon 02/13/18 08:39 > Insertion date: 01/31/18 <Berenice Gordon 02/13/18 08:39> Insertion time: 16:52 <Berenice Gordon 02/13/18 08:39> Removal date: 02/03/18 <Berenice Gordon 02/13/18 08:39> Removal time: 10:50 <Berenice Gordon 02/13/18 08:39> Straight Cath placed during this visit: no <Waldo Willis - 02/13/18 13:04> yes, but has since been removed by the nurse <Berenice Gordon N - 02/13/18 11:15> Reason for continuing: Not indwelling catheter <Berenice Gordon - 02/13/18 08:39 > Insertion date: 01/31/18 <Berenice Gordon - 02/13/18 08:39> Insertion time: 16:06 <Berenice Gordon - 02/13/18 08:39> Removal date: 01/31/18 <Berenice Gordon - 02/13/18 08:39> Removal time: 16:06 <Berenice Gordon - 02/13/18 08:39> Assessment and Plan - Assessment (1) Fracture of tibial plateau, closed Code(s): S82.143A - Displaced bicondylar fracture of unspecified tibia, initial encounter for closed fracture Status: Acute Plan: Post op day #12 manual reduction and external fixator placement, POD #4 re- positioning of EFIX. Pain medications optimized Tylenol 650 mg PO q4hr PRN pain scale 1-2 Oxycodone 5/325 mg q6hr PRN pain scale 3-5 Oxycodone 10/325 mg q4hr PRN pain scale 6-10 Morphine 2 mg q8hr PRN breakthrough AVOID further pain medication PT and OT consulted, recommend OT @ rehab and PT@ home w/home health Orthopedics following: Plan to take patient to OR Thursday, needs NPO and Heparin until then. DC heparin thursday afternoon. Ice and elevation for swelling Encourage use of incentive spirometer, patient has refused CPAP (2) Seizure disorder Code(s): G40.909 - Epilepsy, unspecified, not intractable, without status epilepticus Status: Chronic Plan: Depakote 500 BID Ativan 0.5 mg TID (3) Coronary artery disease Code(s): I25.10 - Atherosclerotic heart disease of hoh coronary artery without angina pectoris Status: Chronic Plan: Continue Imdur, metroprolol and atorvastatin Lisinopril held. (4) Hypertension Code(s): I10 - Essential (primary) hypertension Status: Chronic Plan: BP controlled, Home medication lisinopril 10 mg daily held (5) Hyperlipidemia Code(s): E78.5 - Hyperlipidemia, unspecified Status: Chronic Plan: Continue home atorvastatin (6) Bipolar disorder Code(s): F31.9 - Bipolar disorder, unspecified Status: Acute Plan: Con't Remeron, seroquel, lexapro,Mirtazapine 15 mg PO HS (7) Nutrition, metabolism, and development symptoms Code(s): R63.8 - Other symptoms and signs concerning food and fluid intake Status: Acute Plan: Fluids: none Electrolytes: none Diet: Cardiac Diet GI prophy: Protonix (8) DVT prophylaxis Status: Acute Plan: DVT prophylaxis: Heparin. SCD and compression hose to non-operative leg Dispo: Pending completion of Ortho procedures; Home w/home health care based on PT recs <Berenice Gordon - 02/13/18 11:12> - Attending Attestation See the residents documentation for details. I saw and evaluated the patient regarding the barreto portions of this evaluation and agree with the residents findings and plans as written. Parts of this note were created using [employer] voice recognition software program. While efforts were made to correct any mistakes made by this software, some mistakes, errors, and omissions may remain in the final note that were not caught when the note was originally created. Plan of care was discussed and agreed upon with the patient as specifically documented in the above note. An opportunity to ask questions with explanation was provided. Patient voiced understanding on all information reviewed and discussed. <Waldo Willis - 02/13/18 13:04>
--- NOTE | 2018-02-13 08:42 | P.PNOP ---
Subjective Interval history: Patient states his pain is well controlled today. Physical Exam Vital signs: Vital Signs 02/12/18 12:00 02/12/18 16:00 02/12/18 20:00 Temperature 99.2 F 97.9 F 98 F Pulse Rate 98 H 93 H 95 H Respiratory Rate 18 18 18 Blood Pressure 124/77 115/57 L 126/76 Pulse Oximetry 95 96 02/12/18 20:23 02/12/18 22:58 02/13/18 00:00 Temperature 98.2 F 97.6 F Pulse Rate 93 H 96 H 86 Respiratory Rate 19 18 Blood Pressure 132/71 118/70 Pulse Oximetry 97 95 02/13/18 04:00 Temperature 97.4 F L Pulse Rate 84 Respiratory Rate 20 Blood Pressure 119/72 Pulse Oximetry 95 Intake & Output 02/12/18 02/13/18 02/13/18 18:59 06:59 18:59 Intake Total 960 / 960 720 / 720 Output Total 900 / 900 Balance 960 / 960 -180 / -180 Intake: Oral 960 / 960 720 / 720 Output: Urine 900 / 900 Other: # Voids 3 Date of Last Bowel Movement 02/10/18 Narrative: LLE: Ex-fix in place, pin sites appear clean, minimal drainage present, mild swelling noted distally, freely able to move distal ankle and distal digits, NVI - Urinary Catheter Management Straight Cath placed during this visit: yes, but has since been removed by the nurse Reason for continuing: Not indwelling catheter Insertion date: 01/31/18 Insertion time: 16:06 Removal date: 01/31/18 Removal time: 16:06 Indwelling Urethral Catheter Cath placed during this visit: yes, but has since been removed by the nurse Reason for continuing: Acute urinary retention Insertion date: 01/31/18 Insertion time: 16:52 Removal date: 02/03/18 Removal time: 10:50 Results - Labs CBC & Chem 7: 02/10/18 05:16 02/10/18 05:16 Assessment and Plan - Assessment and Plan Left tibial plateau fracture status post external fixation and reduction Nonweightbearing left lower extremity. Elevation and ice Pin care twice daily Bacitracin to all abrasions Too swollen for surgery N.p.o. after midnight on Thursday night Resume heparin and stop Thursday We will plan on possible surgery on Thursday if swelling has improved with TM Incentive spirometry
[2018-02-13] MEDS: Morphine Inj 4 MG/ML Vial IV.PUSH PRN ×2 (12:12→20:43)
[2018-02-13] MEDS: Mirtazapine 15 MG Tablet PO SCH (21:51)
[2018-02-14] MEDS: Gabapentin 400 MG Capsule PO SCH ×4 (05:15→23:21)
[2018-02-14] MEDS: Heparin - SQ 10,000 UNITS/ML Vial SQ SCH ×2 (05:15→14:00)
--- NOTE | 2018-02-14 08:22 | P.PNOP ---
Subjective Interval history: Pt resting comfortably. Pain seems well controlled. Physical Exam Vital signs: Vital Signs 02/13/18 12:00 02/13/18 16:00 02/13/18 20:00 Temperature 97.9 F 97.7 F Pulse Rate 92 H 87 93 H Respiratory Rate 18 18 Blood Pressure 131/68 114/66 Pulse Oximetry 95 96 02/13/18 20:19 02/13/18 20:45 02/13/18 23:48 Temperature 98.4 F 97.8 F Pulse Rate 95 H 86 Respiratory Rate 18 18 18 Blood Pressure 124/69 108/58 L Pulse Oximetry 96 96 02/14/18 01:58 EDT 02/14/18 01:56 EST 02/14/18 03:15 Temperature 98.7 F Pulse Rate 95 H 88 Respiratory Rate 19 18 Blood Pressure 112/65 Pulse Oximetry 95 02/14/18 04:00 02/14/18 05:45 Temperature Pulse Rate 86 Respiratory Rate 19 Blood Pressure Pulse Oximetry Intake & Output 02/13/18 02/14/18 02/14/18 19:59 06:59 18:59 Intake Total Output Total Balance Intake: Oral Output: Urine Other: Date of Last Bowel Movement # Bowel Movements Narrative: LLE: Ex-fix in place, pin sites appear clean, minimal drainage present, mild swelling noted distally - seems to be improving, freely able to move distal ankle and distal digits, NVI - Urinary Catheter Management Straight Cath placed during this visit: yes, but has since been removed by the nurse Reason for continuing: Not indwelling catheter Insertion date: 01/31/18 Insertion time: 16:06 Removal date: 01/31/18 Removal time: 16:06 Indwelling Urethral Catheter Cath placed during this visit: yes, but has since been removed by the nurse Reason for continuing: Acute urinary retention Insertion date: 01/31/18 Insertion time: 16:52 Removal date: 02/03/18 Removal time: 10:50 Results - Labs CBC & Chem 7: 02/10/18 05:16 02/10/18 05:16 Assessment and Plan - Assessment and Plan Left tibial plateau fracture status post external fixation and reduction Nonweightbearing left lower extremity. Elevation and ice Pin care twice daily Bacitracin to all abrasions Too swollen for surgery N.p.o. after midnight on Thursday night Resume heparin and stop Thursday We will plan on possible surgery on Thursday if swelling has improved with TM Incentive spirometry NPO after midnight
[2018-02-14] MEDS: Famotidine 20 MG Tablet PO SCH (08:24)
[2018-02-14] MEDS: LORazepam 0.5 MG Tablet PO SCH ×3 (08:25→23:21)
[2018-02-14] MEDS: Divalproex 500 MG DR Tablet PO SCH ×2 (08:25→20:49)
[2018-02-14] MEDS: Isosorbide Mononitrate 30 MG ER 24HR Tablet (Imdur) PO SCH (08:25)
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
[2018-02-14] MEDS: oxyCODONE/Acetaminophen 10/325 Tablet PO PRN ×2 (10:09→17:00)
[2018-02-14] MEDS: Morphine Inj 4 MG/ML Vial IV.PUSH PRN ×2 (12:13→20:48)
[2018-02-14] MEDS: Mirtazapine 15 MG Tablet PO SCH (20:49)
[2018-02-15 05:46] LABS: Hematocrit 33.4 % (39.0-51.0); Mean Corpuscular Volume 97.2 fL (80.0-100.0); Mean Platelet Volume 7.7 fL (7.0-11.0); Platelet Count 477 th/mm3 (150-450); Red Blood Count 3.43 mil/mm3 (4.50-5.90); Red Cell Distribution Width 15.6 % (11.6-17.2); White Blood Count 8.5 th/mm3 (4.0-11.0)
[2018-02-15] MEDS: Gabapentin 400 MG Capsule PO SCH ×3 (06:00→18:19)
--- NOTE | 2018-02-15 06:35 | P.PNOP ---
Subjective Interval history: s/p exfix left tibial plateau no changes. Physical Exam Vital signs: Vital Signs 02/14/18 08:00 02/14/18 12:00 02/14/18 16:00 Temperature 98.4 F 98.4 F 98.2 F Pulse Rate 97 H 94 H 95 H Respiratory Rate 16 16 18 Blood Pressure 131/74 116/56 L 134/60 Pulse Oximetry 94 L 95 94 L 02/14/18 19:59 02/14/18 20:00 02/14/18 20:50 Temperature 98.4 F Pulse Rate 88 90 Respiratory Rate 18 18 Blood Pressure 140/69 Pulse Oximetry 94 L 02/15/18 00:00 02/15/18 03:25 02/15/18 03:37 Temperature 97.8 F Pulse Rate 90 88 Respiratory Rate 18 19 Blood Pressure 122/63 Pulse Oximetry 93 L 02/15/18 04:00 Temperature 98.1 F Pulse Rate 87 Respiratory Rate 18 Blood Pressure 115/56 L Pulse Oximetry 94 L Intake & Output 02/14/18 02/14/18 02/15/18 06:59 18:59 06:59 Intake Total 480 / 480 Output Total 800 / 800 450 / 450 Balance -320 / -320 -450 / -450 Weight 127.9 kg Intake: Oral 480 / 480 Output: Urine 800 / 800 450 / 450 Other: Date of Last Bowel Movement 02/11/18 02/13/18 # Bowel Movements Narrative: LLE: 2+ swelling of lower leg. exfix intact. nvi - Urinary Catheter Management Straight Cath placed during this visit: yes, but has since been removed by the nurse Reason for continuing: Not indwelling catheter Insertion date: 01/31/18 Insertion time: 16:06 Removal date: 01/31/18 Removal time: 16:06 Indwelling Urethral Catheter Cath placed during this visit: yes, but has since been removed by the nurse Reason for continuing: Acute urinary retention Insertion date: 01/31/18 Insertion time: 16:52 Removal date: 02/03/18 Removal time: 10:50 Results - Labs CBC & Chem 7: 02/15/18 03:34 02/10/18 05:16 Laboratory Results - last 24 hr 02/15/18 03:34 WBC 8.5 RBC 3.43 L Hgb 11.0 L Hct 33.4 L MCV 97.2 MCH 32.0 MCHC 33.0 RDW 15.6 Plt Count 477 H D MPV 7.7 Assessment and Plan - Assessment and Plan Left tibial plateau fracture status post external fixation and reduction Nonweightbearing left lower extremity. Elevation and ice Pin care twice daily Bacitracin to all abrasions at this point, swelling appears to be as good as it is likely to be. will plan for proceeding with surgery today consents are previously signed on 02/11 and are on chart
[2018-02-15] MEDS ORDERED: ceFAZolin 2 GM Premix Inj 2 GM/50 ML PIGGYBACK IV.SIG ONE (06:52)
[2018-02-15] MEDS ORDERED: ceFAZolin 1 GM Premix Inj 1 GM/50 ML FROZ.PIGGY IV.SIG ONE (07:23)
[2018-02-15] MEDS ORDERED: Post-op Orders (for Pharmacy) OTHER STA (09:43)
--- NOTE | 2018-02-15 09:53 | P.OP ---
- Preoperative Diagnosis (1) Bicondylar fracture of left tibia (2) Fracture of tibial shaft, left, closed Date of procedure: 02/15/18 Procedure: Open reduction internal fixation left bicondylar tibial plateau, open reduction internal fixation left tibial shaft fracture, removal of external fixation Anesthesia: NAOMI Surgeon: Dallin Thorne MD Quality Assurance Nurse: HEMA Rodriguez PA-C The surgical procedure was assisted by my physician psychologist research assistant. My P.A. presence was necessary throughout this case for the manipulation and positioning of the surgical extremity. My P.A. was assisting me throughout the duration of this procedure. The skill set of a physician psychologist research assistant was medically necessary to complete this procedure. During the surgical case the electro mechanical solar technician was working at the back table and the physician psychologist research assistant was directly assisting me. Operation and Findings: Implants used: Synthes Plan of activity: Nonweightbearing, passive range of motion of knee Details of procedure: This patient was seen and evaluated preoperatively. Patient sustained an injury resulting a bicondylar tibial plateau fracture. Informed consent was obtained preoperatively after detailed discussion of the risks and benefits of surgery. Risk of surgery including bleeding, infection, nonunion, painful hardware, stiffness, loss of motion, arthritis, need for knee replacement, as well as medical complications including blood clots, stroke, heart attack, and were discussed. I also discussed the possibility of using allograft bone graft . Preoperatively the operative site was marked. Patient was brought to the operating room and placed on the operating room table. Intravenous sedation and general endotracheal anesthesia were administered. IV antibiotics were given and a time out procedure was preformed. Preoperatively patient's leg was examined. He still had significant swelling present, but it was improved. His swelling has very slowly improved over the past 2 weeks. Compartments were soft. Decision was made to proceed with surgery today. Procedure began with removal of the external fixator. Clamps were loosened. Bars and clamps were now removed. The pins were left in place. Next,the operative leg was prepped with alcohol followed by Hibiclens and draped in the usual sterile fashion. Next a 7-inch curvilinear incision over the anterolateral knee. Subcutaneous tissue was treated with Bovie. Iliotibial band was split in line with fibers. A sub-meniscal arthrotomy was created and the lateral articular surface was visualized. There was significant comminution and depression of the articular surface. The shaft fragment was reduced first. An additional external fixation pin was placed in the distal femur. A distractor frame was created. The fracture was gently distracted with the external fixator. The shaft fragment keyed and excellent alignment. A 3.5 cortical lag screw was used to compress fracture fragment. Next attention was turned to the articular surface. A window was made in the metaphyseal region and bone tamps used to elevate the articular surface. Articular surface reduced into excellent alignment. K-wires were used for provisional fixation. At this point cancellous bone graft was packed under the articular surface using a bone tamp. The cortical fragments were now reduced. Fluoroscopy revealed excellent alignment of fracture. The medial plateau fragment was elevated using a bone tamp. Large Steinmann pins were used to aid in manipulation of the medial tibial plateau. Because of patient's continued soft tissue swelling, I did not feel comfortable making an additional medial incision for medial plate. A long lateral proximal tibial plate was selected to span both the tibial shaft fracture and the tibial plateau. The plate was provisionally held with K- wires. 3.5 cortical screws were used compress plate to bone distally, and a periarticular clamp was used to compress the medial and lateral tibial plateau fracture fragments together. Multiple locking screws were now placed proximally. Additional screws were placed in the shaft. K-wires were removed. Final fluoroscopy showed excellent alignment of fracture with well- placed hardware. The incision was thoroughly irrigated. All screws were predrilled and premeasured for appropriate length. Patient had a sizable defect of the metaphyseal region. 10 cc of Ceramet cement was mixed. Cement was injected into the metaphyseal defect. Incisions were thoroughly irrigated. Attention was now turned to closure. Fascia and iliotibial band were closed with #1 Vicryl,. Subcutaneous tissues closed with 3-0 Vicryl and skin was closed with nitesh. Sterile dressings were applied. The external fixator pins were now removed. The patient was transferred to recovery in stable condition.
[2018-02-15] MEDS ORDERED: fentaNYL Citrate Inj 100 MCG/2 ML Ampul ONE ×2 (10:21)
[2018-02-15] MEDS: LORazepam 0.5 MG Tablet PO SCH ×2 (11:21→15:45)
[2018-02-15] MEDS: Morphine Inj 4 MG/ML Vial IV.PUSH PRN (11:39)
[2018-02-15] MEDS: Divalproex 500 MG DR Tablet PO SCH ×2 (11:41→20:55)
[2018-02-15] MEDS: Famotidine 20 MG Tablet PO SCH (11:42)
[2018-02-15] MEDS: Isosorbide Mononitrate 30 MG ER 24HR Tablet (Imdur) PO SCH (11:42)
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
[2018-02-15] MEDS: ceFAZolin 2 GM Premix Inj 2 GM/50 ML PIGGYBACK IV.SIG SCH (15:43)
--- NOTE | 2018-02-15 15:45 | P.PNFP ---
Subjective Interval history: Patient seen and examined at bedside today. He had just gotten back to his room from surgery and was in severe pain so history was limited. Patient denied chest pain, shortness of breath. He reported severe knee pain. <Sara Walker - 02/15/18 18:05> Results - Labs Result diagrams: 02/16/18 04:52 02/15/18 15:40 <Waldo Willis - 02/16/18 12:47> Abnormal lab results 02/15/18 02/15/18 02/16/18 Range/Units 15:40 15:40 04:52 WBC 12.7 H (4.0-11.0) th/mm3 RBC 3.33 L (4.50-5.90) mil/mm3 Hgb 11.0 L 10.1 L (13.0-17.0) gm/dL Hct 32.7 L 29.7 L (39.0-51.0) % Plt Count 473 H (150-450) th/mm3 Neut % (Auto) 92.3 H (16.0-70.0) % Lymph % (Auto) 5.2 L (9.0-44.0) % Neut # (Auto) 11.7 H (1.8-7.7) th/mm3 Lymph # (Auto) 0.7 L (1.0-4.8) th/mm3 Potassium 5.6 H (3.5-5.1) meq/L Creatinine 1.45 H (0.60-1.30) mg/dL Estimated GFR 52 L (>89) mL/min Random Glucose 208 H (74-106) mg/dL Calcium 8.1 L (8.5-10.1) mg/dL Short CBC 02/15/18 02/16/18 Range/Units 15:40 04:52 WBC 12.7 H (4.0-11.0) th/mm3 Hgb 11.0 L 10.1 L (13.0-17.0) gm/dL Hct 32.7 L 29.7 L (39.0-51.0) % Plt Count 473 H (150-450) th/mm3 BMP 02/15/18 15:40 Sodium 139 Potassium 5.6 H Chloride 107 Carbon Dioxide 21.3 BUN 18 Creatinine 1.45 H Calcium 8.1 L <Waldo Willis - 02/16/18 12:47> Abnormal lab results 02/15/18 Range/Units 03:34 RBC 3.43 L (4.50-5.90) mil/mm3 Hgb 11.0 L (13.0-17.0) gm/dL Hct 33.4 L (39.0-51.0) % Plt Count 477 H D (150-450) th/mm3 Short CBC 02/15/18 Range/Units 03:34 WBC 8.5 (4.0-11.0) th/mm3 Hgb 11.0 L (13.0-17.0) gm/dL Hct 33.4 L (39.0-51.0) % Plt Count 477 H D (150-450) th/mm3 <Sara Walker - 02/15/18 15:45> - Imaging Impressions Knee X-Ray 02/15/18 00:00 CONCLUSION: Satisfactory postoperative appearance of the left knee status post ORIF. <Waldo Willis - 02/16/18 12:47> Impressions Knee X-Ray 02/15/18 00:00 CONCLUSION: Satisfactory postoperative appearance of the left knee status post ORIF. <Sara Walker - 02/15/18 15:45> Physical Exam Vital signs: Vital Signs 02/15/18 16:00 02/15/18 20:00 02/16/18 00:00 Temperature 97.9 F 98.3 F 98.4 F Pulse Rate 97 H 103 H 105 H Respiratory Rate 18 18 18 Blood Pressure 127/62 140/63 121/57 L Pulse Oximetry 94 L 93 L 94 L 02/16/18 04:00 02/16/18 08:00 02/16/18 08:41 Temperature 97.9 F 98.3 F Pulse Rate 106 H 104 H Respiratory Rate 18 20 18 Blood Pressure 165/94 H 158/74 H Pulse Oximetry 93 L 95 02/16/18 08:42 02/16/18 09:11 02/16/18 12:02 Temperature Pulse Rate 107 H Respiratory Rate 18 18 Blood Pressure Pulse Oximetry Intake & Output 02/15/18 02/16/18 02/16/18 18:59 06:59 18:59 Intake Total 1460 / 1460 1830 / 1830 300 / 300 Output Total 375 / 375 Balance 1085 / 1085 1830 / 1830 300 / 300 Weight 128.5 kg Intake: IV 1350 / 1350 300 / 300 LR 1000 mL Inj 1,000 ML @ 80 1000 / 1000 mls/hr IV.CONT .[id number] ANJEL Rx# :[id number] Vancomycin Inj 1,000 MG In NS 250 / 250 250 / 250 Inj 250 ML @ 200 mls/hr IV.SIG Q12H ANJEL Rx#:[id number] Ancef 2 GM Premix Inj 2 gm In 100 / 100 50 / 50 50 ml @ 100 mls/hr IV.SIG Q8H ANJEL Rx#:[id number] Oral 360 / 360 480 / 480 Anesthesia Amount 1100 / 1100 Output: Urine 300 / 300 Estimated Blood Loss 75 / 75 Other: # Voids 2,200 Date of Last Bowel Movement 02/13/18 02/13/18 <Waldo Willis - 02/16/18 12:47> Vital Signs 02/14/18 16:00 02/14/18 19:59 02/14/18 20:00 Temperature 98.2 F 98.4 F Pulse Rate 95 H 88 90 Respiratory Rate 18 18 Blood Pressure 134/60 140/69 Pulse Oximetry 94 L 94 L 02/14/18 20:50 02/15/18 00:00 02/15/18 03:25 Temperature 97.8 F Pulse Rate 90 Respiratory Rate 18 18 19 Blood Pressure 122/63 Pulse Oximetry 93 L 02/15/18 03:37 02/15/18 04:00 02/15/18 10:15 Temperature 98.1 F 98.4 F Pulse Rate 88 87 90 Respiratory Rate 18 16 Blood Pressure 115/56 L 142/67 H Pulse Oximetry 94 L 97 02/15/18 10:30 02/15/18 10:45 02/15/18 11:00 Temperature Pulse Rate 96 H 98 H 96 H Respiratory Rate 16 16 16 Blood Pressure 163/74 H 150/82 H 144/87 H Pulse Oximetry 95 96 97 02/15/18 12:00 Temperature 98.2 F Pulse Rate 98 H Respiratory Rate 18 Blood Pressure 141/87 H Pulse Oximetry 97 Intake & Output 02/14/18 02/15/18 02/15/18 18:59 06:59 18:59 Intake Total 480 / 480 1100 / 1100 Output Total 800 / 800 450 / 450 75 / 75 Balance -320 / -320 -450 / -450 1025 / 1025 Weight 127.9 kg Intake: Oral 480 / 480 Anesthesia Amount 1100 / 1100 Output: Urine 800 / 800 450 / 450 Estimated Blood Loss 75 / 75 Other: Date of Last Bowel Movement 02/11/18 02/13/18 <Sara Walker - 02/15/18 15:45> - Constitutional moderate distress <Sara Walker - 02/15/18 15:45> - Routine HEENT Exam Head: Present: normocephalic, atraumatic <Sara Walker - 02/15/18 18:05> - Routine Respiratory Exam Present: CTA bilaterally <Sara Walker - 02/15/18 15:45> - Routine Cardiovascular Exam Present: RRR, S1, S2 <Sara Walker - 02/15/18 15:45> - Routine Abdominal Exam Present: soft, normoactive bowel sounds <Sara Walker - 02/15/18 18:05> - Routine Extremities Exam Comments: patient left extremity bandages and splinted, moves toes, normal capillary refill <Sara Walker - 02/15/18 18:05> - Routine Neurological Exam Present: alert, oriented X3 <Sara Walker - 02/15/18 18:05> - Urinary Catheter Management Indwelling Urethral Catheter Cath placed during this visit: no <Waldo Willis - 02/16/18 12:47> yes, but has since been removed by the nurse <Sara Walker - 02/15/18 18:05> Reason for continuing: Acute urinary retention <Sara Walker - 02/15/18 15:45> Insertion date: 01/31/18 <Sara Walker - 02/15/18 15:45> Insertion time: 16:52 <Sara Walker - 02/15/18 15:45> Removal date: 02/03/18 <Sara Walker - 02/15/18 15:45> Removal time: 10:50 <Sara Walker - 02/15/18 15:45> Straight Cath placed during this visit: no <Waldo Willis - 02/16/18 12:47> yes, but has since been removed by the nurse <Sara Walker - 02/15/18 18:05> Reason for continuing: Not indwelling catheter <Sara Walker - 02/15/18 15:45> Insertion date: 01/31/18 <Sara Walker - 02/15/18 15:45> Insertion time: 16:06 <Sara Walker - 02/15/18 15:45> Removal date: 01/31/18 <Sara Walker - 02/15/18 15:45> Removal time: 16:06 <Sara Walker - 02/15/18 15:45> Assessment and Plan - Assessment (1) Fracture of tibial plateau, closed Code(s): S82.143A - Displaced bicondylar fracture of unspecified tibia, initial encounter for closed fracture Status: Acute Plan: Post op day #16 manual reduction and external fixator placement, POD #7 re- positioning of EFIX, POD #0 from open reduction internal fixation left bicondylar tibial plateau, open reduction internal fixation left tibial shaft fracture, removal of external fixation. Pain medications optimized Tylenol 650 mg PO q4hr PRN pain scale 1-2 Oxycodone 5/325 mg q6hr PRN pain scale 3-5 Oxycodone 10/325 mg q4hr PRN pain scale 6-10 Morphine 2 mg q8hr PRN breakthrough AVOID further pain medication PT and OT consulted, recommend OT @ rehab and PT@ at rehab Orthopedics following: Patient had open reduction internal fixation left bicondylar tibial plateau, open reduction internal fixation left tibial shaft fracture, removal of external fixation completed today. Ice and elevation for swelling Encourage use of incentive spirometer, patient has refused CPAP (2) Seizure disorder Code(s): G40.909 - Epilepsy, unspecified, not intractable, without status epilepticus Status: Chronic Plan: Depakote 500 BID Ativan 0.5 mg TID (3) Coronary artery disease Code(s): I25.10 - Atherosclerotic heart disease of [place] coronary artery without angina pectoris Status: Chronic Plan: Continue Imdur, metroprolol and atorvastatin Lisinopril held. (4) Hypertension Code(s): I10 - Essential (primary) hypertension Status: Chronic Plan: BP controlled, Home medication lisinopril 10 mg daily held (5) Hyperlipidemia Code(s): E78.5 - Hyperlipidemia, unspecified Status: Chronic Plan: Continue home atorvastatin (6) Bipolar disorder Code(s): F31.9 - Bipolar disorder, unspecified Status: Acute Plan: Con't Remeron, seroquel, lexapro,Mirtazapine 15 mg PO HS (7) Nutrition, metabolism, and development symptoms Code(s): R63.8 - Other symptoms and signs concerning food and fluid intake Status: Acute Plan: Fluids: none Electrolytes: none Diet: Diabetic Diet. GI prophy: Protonix (8) DVT prophylaxis Status: Acute Plan: DVT prophylaxis: Lovenox will be restarted 02/16 per ortho SCD and compression hose to non-operative leg Dispo: Pending completion of Ortho procedures; Rehab based on PT recs <Sara Walker - 02/15/18 17:56> - Assessment and Plan dw Dr. Willis and Dr. Perez <Sara Walker - 02/15/18 18:05> - Attending Attestation See the residents documentation for details. I saw and evaluated the patient regarding the barreto portions of this evaluation and agree with the residents findings and plans as written. Parts of this note were created using [employer] voice recognition software program. While efforts were made to correct any mistakes made by this software, some mistakes, errors, and omissions may remain in the final note that were not caught when the note was originally created. Plan of care was discussed and agreed upon with the patient as specifically documented in the above note. An opportunity to ask questions with explanation was provided. Patient voiced understanding on all information reviewed and discussed. <Wlado Willis - 02/16/18 12:47>
[2018-02-15 16:08] LABS: Baso % (Auto) 0.3 % (0.0-2.0); Eos % (Auto) 0.1 % (0.0-4.0); Hematocrit 32.7 % (39.0-51.0); Lymph # (Auto) 0.7 th/mm3 (1.0-4.8); Lymph % (Auto) 5.2 % (9.0-44.0); Mean Corpuscular HGB Conc 33.6 % (32.0-36.0); Mean Corpuscular Hemoglobin 33.1 pg (27.0-34.0); Mean Corpuscular Volume 98.4 fL (80.0-100.0); Mean Platelet Volume 7.4 fL (7.0-11.0); Mono # (Auto) 0.3 th/mm3 (0.0-0.9); Mono % (Auto) 2.1 % (0.0-8.0); Neut # (Auto) 11.7 th/mm3 (1.8-7.7); Neut % (Auto) 92.3 % (16.0-70.0); Platelet Count 473 th/mm3 (150-450); Red Blood Count 3.33 mil/mm3 (4.50-5.90); Red Cell Distribution Width 15.8 % (11.6-17.2); White Blood Count 12.7 th/mm3 (4.0-11.0)
[2018-02-15 16:47] LABS: Calcium 8.1 mg/dL (8.5-10.1); Carbon Dioxide 21.3 meq/L (21.0-32.0); Potassium 5.6 meq/L (3.5-5.1)
[2018-02-15] MEDS: Calcium/Vitamin D 250/125 MG Tablet PO SCH ×2 (19:08→19:11)
[2018-02-15] MEDS: Mirtazapine 15 MG Tablet PO SCH (20:55)
[2018-02-15] MEDS: Vancomycin Inj 1,000 MG in Sodium Chlor 0.9% Inj 250 ML IV.SIG SCH (20:55)
[2018-02-16] MEDS: Gabapentin 400 MG Capsule PO SCH ×4 (00:31→17:05)
[2018-02-16] MEDS: LORazepam 0.5 MG Tablet PO SCH ×3 (00:31→17:05)
[2018-02-16] MEDS: ceFAZolin 2 GM Premix Inj 2 GM/50 ML PIGGYBACK IV.SIG SCH ×3 (00:32→17:05)
[2018-02-16 05:23] LABS: Hematocrit 29.7 % (39.0-51.0); Hemoglobin 10.1 gm/dL (13.0-17.0)
[2018-02-16] MEDS: Calcium/Vitamin D 250/125 MG Tablet PO SCH ×3 (08:40→17:05)
[2018-02-16] MEDS: Divalproex 500 MG DR Tablet PO SCH ×2 (08:40→20:22)
[2018-02-16] MEDS: Isosorbide Mononitrate 30 MG ER 24HR Tablet (Imdur) PO SCH (08:41)
[2018-02-16] MEDS: Famotidine 20 MG Tablet PO SCH (08:41)
[2018-02-16] MEDS: Enoxaparin Inj 40 MG/0.4 ML Syringe SQ SCH (08:42)
[2018-02-16] MEDS: Vancomycin Inj 1,000 MG in Sodium Chlor 0.9% Inj 250 ML IV.SIG SCH (08:43)
--- NOTE | 2018-02-16 09:13 | P.PNOP ---
Subjective Interval history: Postoperative day 1 for left tibial plateau fracture with removal of external fixation and ORIF. Patient is resting in bed on his side with knee immobilizer loosened Physical Exam Vital signs: Vital Signs 02/15/18 10:15 02/15/18 10:30 02/15/18 10:45 Temperature 98.4 F Pulse Rate 90 96 H 98 H Respiratory Rate 16 16 16 Blood Pressure 142/67 H 163/74 H 150/82 H Pulse Oximetry 97 95 96 02/15/18 11:00 02/15/18 12:00 02/15/18 16:00 Temperature 98.2 F 97.9 F Pulse Rate 96 H 98 H 97 H Respiratory Rate 16 18 18 Blood Pressure 144/87 H 141/87 H 127/62 Pulse Oximetry 97 97 94 L 02/15/18 20:00 02/16/18 00:00 02/16/18 04:00 Temperature 98.3 F 98.4 F 97.9 F Pulse Rate 103 H 105 H 106 H Respiratory Rate 18 18 18 Blood Pressure 140/63 121/57 L 165/94 H Pulse Oximetry 93 L 94 L 93 L 02/16/18 08:41 Temperature Pulse Rate Respiratory Rate 18 Blood Pressure Pulse Oximetry Intake & Output 02/15/18 02/16/18 02/16/18 18:59 06:59 18:59 Intake Total 1460 / 1460 1830 / 1830 50 / 50 Output Total 375 / 375 Balance 1085 / 1085 1830 / 1830 50 / 50 Weight 128.5 kg Intake: IV 1350 / 1350 50 / 50 LR 1000 mL Inj 1,000 ML @ 80 1000 / 1000 mls/hr IV.CONT .[id number] ANJEL Rx# :[id number] Vancomycin Inj 1,000 MG In NS 250 / 250 Inj 250 ML @ 200 mls/hr IV.SIG Q12H ANJEL Rx#:[id number] Ancef 2 GM Premix Inj 2 gm In 100 / 100 50 / 50 50 ml @ 100 mls/hr IV.SIG Q8H ANJEL Rx#:[id number] Oral 360 / 360 480 / 480 Anesthesia Amount 1100 / 1100 Output: Urine 300 / 300 Estimated Blood Loss 75 / 75 Other: # Voids 2,200 Date of Last Bowel Movement 02/13/18 Narrative: Left lower extremity: Knee immobilizer readjusted. Dressings with mild drainage. Compartments of the lower leg semi-soft. Intact sensation distally with active dorsiflexion and plantar flexion of foot. - Urinary Catheter Management Straight Cath placed during this visit: yes, but has since been removed by the nurse Reason for continuing: Not indwelling catheter Insertion date: 01/31/18 Insertion time: 16:06 Removal date: 01/31/18 Removal time: 16:06 Indwelling Urethral Catheter Cath placed during this visit: yes, but has since been removed by the nurse Reason for continuing: Acute urinary retention Insertion date: 01/31/18 Insertion time: 16:52 Removal date: 02/03/18 Removal time: 10:50 Results - Labs CBC & Chem 7: 02/16/18 04:52 02/15/18 15:40 Laboratory Results - last 24 hr 02/15/18 02/15/18 02/16/18 15:40 15:40 04:52 WBC 12.7 H RBC 3.33 L Hgb 11.0 L 10.1 L Hct 32.7 L 29.7 L MCV 98.4 MCH 33.1 MCHC 33.6 RDW 15.8 Plt Count 473 H MPV 7.4 Neut % (Auto) 92.3 H Lymph % (Auto) 5.2 L [place] % (Auto) 2.1 Eos % (Auto) 0.1 Baso % (Auto) 0.3 Neut # (Auto) 11.7 H Lymph # (Auto) 0.7 L [place] # (Auto) 0.3 Eos # (Auto) 0.0 Baso # (Auto) 0.0 WBC Differential . Differential Comment Auto diff final Sodium 139 Potassium 5.6 H Chloride 107 Carbon Dioxide 21.3 Anion Gap 11 BUN 18 Creatinine 1.45 H Estimated GFR 52 L Random Glucose 208 H Calcium 8.1 L - Imaging Impressions Knee X-Ray 02/15/18 00:00 CONCLUSION: Satisfactory postoperative appearance of the left knee status post ORIF. Assessment and Plan - Assessment and Plan Left tibial plateau fracture status post removal external fixation and open reduction internal fixation POD 1 Nonweightbearing left lower extremity. Elevation and ice Daily dressing changes beginning POD 2 Bacitracin to all abrasions No active leg lifts or quad sets. Passive range of motion of knee by physical therapy Case management for possible rehab placement due to noncompliance
[2018-02-16] MEDS ORDERED: Senna/Docusate Sodium 8.6/50 MG Tablet PO PRN (12:09)
--- NOTE | 2018-02-16 12:17 | P.PNFP ---
Subjective Interval history: Mr. Hargrove had no acute events overnight. He is POD#1 for left tibial plateau fracture with removal of external fixation and ORIF. He reports his pain is controlled, is tolerating p.o., is voiding, but has not had a bowel movement or flatulence yet. Patient states he is ready to go to rehab if released to do so. He states he still has a little pain in the leg. Denies chest pain, shortness of breath, fever, chills, nausea, vomiting, diarrhea. <Ben Perez III H - 02/16/18 12:17> Results - Labs Result diagrams: 02/17/18 05:24 02/17/18 05:24 <Waldo Willis - 02/17/18 11:40> Abnormal lab results 02/17/18 02/17/18 Range/Units 05:24 05:24 WBC 11.6 H (4.0-11.0) th/mm3 RBC 3.28 L (4.50-5.90) mil/mm3 Hgb 10.2 L (13.0-17.0) gm/dL Hct 31.6 L (39.0-51.0) % [place] % (Auto) 17.8 H (0.0-8.0) % [place] # (Auto) 2.1 H (0.0-0.9) th/mm3 Estimated GFR 79 L (>89) mL/min Calcium 8.4 L (8.5-10.1) mg/dL Short CBC 02/17/18 Range/Units 05:24 WBC 11.6 H (4.0-11.0) th/mm3 Hgb 10.2 L (13.0-17.0) gm/dL Hct 31.6 L (39.0-51.0) % Plt Count 449 (150-450) th/mm3 BMP 02/17/18 05:24 Sodium 139 Potassium 4.1 D Chloride 105 Carbon Dioxide 26.4 BUN 15 Creatinine 1.01 Calcium 8.4 L <Waldo Willis - 02/17/18 11:40> Abnormal lab results 02/15/18 02/15/18 02/16/18 Range/Units 15:40 15:40 04:52 WBC 12.7 H (4.0-11.0) th/mm3 RBC 3.33 L (4.50-5.90) mil/mm3 Hgb 11.0 L 10.1 L (13.0-17.0) gm/dL Hct 32.7 L 29.7 L (39.0-51.0) % Plt Count 473 H (150-450) th/mm3 Neut % (Auto) 92.3 H (16.0-70.0) % Lymph % (Auto) 5.2 L (9.0-44.0) % Neut # (Auto) 11.7 H (1.8-7.7) th/mm3 Lymph # (Auto) 0.7 L (1.0-4.8) th/mm3 Potassium 5.6 H (3.5-5.1) meq/L Creatinine 1.45 H (0.60-1.30) mg/dL Estimated GFR 52 L (>89) mL/min Random Glucose 208 H (74-106) mg/dL Calcium 8.1 L (8.5-10.1) mg/dL Short CBC 02/15/18 02/16/18 Range/Units 15:40 04:52 WBC 12.7 H (4.0-11.0) th/mm3 Hgb 11.0 L 10.1 L (13.0-17.0) gm/dL Hct 32.7 L 29.7 L (39.0-51.0) % Plt Count 473 H (150-450) th/mm3 [facility] 02/15/18 15:40 Sodium 139 Potassium 5.6 H Chloride 107 Carbon Dioxide 21.3 BUN 18 Creatinine 1.45 H Calcium 8.1 L <Ben Perez III - 02/16/18 12:17> - Imaging Impressions Knee X-Ray 02/15/18 00:00 CONCLUSION: Satisfactory postoperative appearance of the left knee status post ORIF. <Ben Perez III - 02/16/18 12:17> Physical Exam Vital signs: Vital Signs 02/16/18 12:00 02/16/18 12:02 02/16/18 12:32 Temperature 98.4 F Pulse Rate 101 H Respiratory Rate 20 18 18 Blood Pressure 105/64 Pulse Oximetry 96 02/16/18 16:00 02/16/18 17:05 02/16/18 17:35 Temperature 99.7 F H Pulse Rate 103 H Respiratory Rate 20 18 18 Blood Pressure 144/67 H Pulse Oximetry 96 02/16/18 20:00 02/17/18 00:00 02/17/18 04:00 Temperature 98.9 F 98.1 F 99.2 F Pulse Rate 106 H 103 H 100 H Respiratory Rate 17 18 18 Blood Pressure 143/79 H 116/65 127/59 L Pulse Oximetry 94 L 93 L 96 02/17/18 08:00 02/17/18 09:47 Temperature 98.4 F Pulse Rate 103 H 101 H Respiratory Rate 20 Blood Pressure 132/61 Pulse Oximetry 97 Intake & Output 02/16/18 02/17/18 02/17/18 18:59 06:59 18:59 Intake Total 1430 / 1430 750 / 750 50 / 50 Output Total 1800 / 1800 1500 / 1500 Balance -370 / -370 -750 / -750 50 / 50 Weight 123.7 kg Intake: IV 350 / 350 50 / 50 50 / 50 Vancomycin Inj 1,000 MG In NS 250 / 250 Inj 250 ML @ 200 mls/hr IV.SIG Q12H ANJEL Rx#:[id number] Ancef 2 GM Premix Inj 2 gm In 100 / 100 50 / 50 50 / 50 50 ml @ 100 mls/hr IV.SIG Q8H ANJEL Rx#:[id number] Oral 1080 / 1080 700 / 700 Output: Urine 1800 / 1800 1500 / 1500 Other: Date of Last Bowel Movement 02/13/18 02/16/18 02/16/18 # Bowel Movements 1 <Waldo Willis - 02/17/18 11:40> Vital Signs 02/15/18 16:00 02/15/18 20:00 02/16/18 00:00 Temperature 97.9 F 98.3 F 98.4 F Pulse Rate 97 H 103 H 105 H Respiratory Rate 18 18 18 Blood Pressure 127/62 140/63 121/57 L Pulse Oximetry 94 L 93 L 94 L 02/16/18 04:00 02/16/18 08:00 02/16/18 08:41 Temperature 97.9 F 98.3 F Pulse Rate 106 H 104 H Respiratory Rate 18 20 18 Blood Pressure 165/94 H 158/74 H Pulse Oximetry 93 L 95 02/16/18 08:42 02/16/18 09:11 02/16/18 12:02 Temperature Pulse Rate 107 H Respiratory Rate 18 18 Blood Pressure Pulse Oximetry Intake & Output 02/15/18 02/16/18 02/16/18 18:59 06:59 18:59 Intake Total 1460 / 1460 1830 / 1830 300 / 300 Output Total 375 / 375 Balance 1085 / 1085 1830 / 1830 300 / 300 Weight 128.5 kg Intake: IV 1350 / 1350 300 / 300 LR 1000 mL Inj 1,000 ML @ 80 1000 / 1000 mls/hr IV.CONT .[id number] ANJEL Rx# :[id number] Vancomycin Inj 1,000 MG In NS 250 / 250 250 / 250 Inj 250 ML @ 200 mls/hr IV.SIG Q12H ANJEL Rx#:[id number] Ancef 2 GM Premix Inj 2 gm In 100 / 100 50 / 50 50 ml @ 100 mls/hr IV.SIG Q8H ANJEL Rx#:[id number] Oral 360 / 360 480 / 480 Anesthesia Amount 1100 / 1100 Output: Urine 300 / 300 Estimated Blood Loss 75 / 75 Other: # Voids 2,200 Date of Last Bowel Movement 02/13/18 02/13/18 <Ben Perez III - 02/16/18 12:17> Narrative: GENERAL: Obese male lying in bed in no acute distress. HEAD: Normocephalic. Atraumatic. MMM. EYES: No injection or drainage. NECK: Supple, trachea midline. CARDIOVASCULAR: Regular rate and rhythm without murmurs, gallops, or rubs. RESPIRATORY: Breath sounds equal bilaterally. No increased work of breathing. GASTROINTESTINAL: Abdomen soft, non-tender, nondistended. Positive bowel sounds. MUSCULOSKELETAL: Swelling of the left foot. Left lower extremity encased in leg immobilizer. Palpable pulse. Normal sensation. Patient can wiggle toes. States he feels some numbness in the left foot. Capillary refill less than 2 seconds. Healing abrasion on left forearm. <Ben Perez III - 02/16/18 18:36> - Urinary Catheter Management Indwelling Urethral Catheter Cath placed during this visit: no <Waldo Willis - 02/17/18 11:40> yes, but has since been removed by the nurse <Ben Perez III - 02/16/18 18:36> Reason for continuing: Acute urinary retention <Ben Perez III - 02/16/18 12:17> Insertion date: 01/31/18 <Blanke IIIBen - 02/16/18 12:17> Insertion time: 16:52 <Blanke IIIBen - 02/16/18 12:17> Removal date: 02/03/18 <Blanke III,Ben Villalpando - 02/16/18 12:17> Removal time: 10:50 <Danutae IIIBen - 02/16/18 12:17> Straight Cath placed during this visit: no <Waldo Willis - 02/17/18 11:40> yes, but has since been removed by the nurse <Ben Perez III - 02/16/18 18:36> Reason for continuing: Not indwelling catheter <Chris IIIBen - 02/16/18 12:17> Insertion date: 01/31/18 <Blanke IIIBen - 02/16/18 12:17> Insertion time: 16:06 <Danutae IIIBen - 02/16/18 12:17> Removal date: 01/31/18 <Blanke IIIBen - 02/16/18 12:17> Removal time: 16:06 <Danutae IIIBen - 02/16/18 12:17> Assessment and Plan - Assessment (1) Fracture of tibial plateau, closed Code(s): S82.143A - Displaced bicondylar fracture of unspecified tibia, initial encounter for closed fracture Status: Acute (2) Seizure disorder Code(s): G40.909 - Epilepsy, unspecified, not intractable, without status epilepticus Status: Chronic (3) Coronary artery disease Code(s): I25.10 - Atherosclerotic heart disease of [place] coronary artery without angina pectoris Status: Chronic (4) Hypertension Code(s): I10 - Essential (primary) hypertension Status: Chronic (5) Hyperlipidemia Code(s): E78.5 - Hyperlipidemia, unspecified Status: Chronic (6) Bipolar disorder Code(s): F31.9 - Bipolar disorder, unspecified Status: Acute (7) Nutrition, metabolism, and development symptoms Code(s): R63.8 - Other symptoms and signs concerning food and fluid intake Status: Acute (8) DVT prophylaxis Status: Acute <Waldo Willis 02/17/18 11:40> (1) Fracture of tibial plateau, closed Code(s): S82.143A - Displaced bicondylar fracture of unspecified tibia, initial encounter for closed fracture Status: Acute Plan: Post op day #1 ORIF of proximal tibia Pain medications optimized Tylenol 650 mg PO q4hr PRN pain scale 1-2 Oxycodone 5/325 mg q6hr PRN pain scale 3-5 [place] 10/325 mg q4hr PRN pain scale 6-10 Morphine 2 mg q8hr PRN breakthrough Gabapentin 800 mg q6h AVOID further pain medication Ancef 2g q8h as per orthopedics Vancomycin 1g q12h x2 doses per orthopedics PT and OT consulted, recommend OT @ rehab and PT@ at rehab Orthopedics following: Patient had open reduction internal fixation left bicondylar tibial plateau, open reduction internal fixation left tibial shaft fracture, removal of external fixation on 02/15. Ice and elevation for swelling Encourage use of incentive spirometer, patient has refused CPAP (2) Seizure disorder Code(s): G40.909 - Epilepsy, unspecified, not intractable, without status epilepticus Status: Chronic Plan: Depakote 500 BID Ativan 0.5 mg TID (3) Coronary artery disease Code(s): I25.10 - Atherosclerotic heart disease of [place] coronary artery without angina pectoris Status: Chronic Plan: Continue Imdur, metroprolol and atorvastatin Lisinopril held due to SBP <110 (4) Hypertension Code(s): I10 - Essential (primary) hypertension Status: Chronic Plan: BP controlled, Home medication lisinopril 10 mg daily held (5) Hyperlipidemia Code(s): E78.5 - Hyperlipidemia, unspecified Status: Chronic Plan: Continue home atorvastatin (6) Bipolar disorder Code(s): F31.9 - Bipolar disorder, unspecified Status: Acute Plan: Con't Remeron, seroquel, lexapro,Mirtazapine 15 mg PO HS (7) Nutrition, metabolism, and development symptoms Code(s): R63.8 - Other symptoms and signs concerning food and fluid intake Status: Acute Plan: Fluids: none Electrolytes: none Diet: Diabetic Diet. GI prophy: Protonix (8) DVT prophylaxis Status: Acute Plan: DVT prophylaxis: Lovenox 40 mg subcu daily restarted 02/16 SCD and compression hose to non-operative leg Dispo: Pending completion of Ortho procedures; Rehab based on PT recs <Chris CRUZBen H - 02/16/18 18:27> - Assessment and Plan sdw Dr. Willis <Chris CRUZBen H - 02/16/18 18:36> Discharge Planning: Plan to discharge to rehab when cleared by Orthopedics <Chris CRUZBen H - 02/16/18 18:36> - Attending Attestation See the residents documentation for details. I saw and evaluated the patient regarding the barreto portions of this evaluation and agree with the residents findings and plans as written. Parts of this note were created using [employer] voice recognition software program. While efforts were made to correct any mistakes made by this software, some mistakes, errors, and omissions may remain in the final note that were not caught when the note was originally created. Plan of care was discussed and agreed upon with the patient as specifically documented in the above note. An opportunity to ask questions with explanation was provided. Patient voiced understanding on all information reviewed and discussed. <Waldo Willis - 02/17/18 11:40>
[2018-02-16] MEDS: Mirtazapine 15 MG Tablet PO SCH (20:22)
[2018-02-17] MEDS: Gabapentin 400 MG Capsule PO SCH ×3 (00:11→12:50)
[2018-02-17] MEDS: LORazepam 0.5 MG Tablet PO SCH ×2 (00:11→09:34)
[2018-02-17] MEDS: ceFAZolin 2 GM Premix Inj 2 GM/50 ML PIGGYBACK IV.SIG SCH ×2 (00:13→09:34)
[2018-02-17 05:58] LABS: Baso # (Auto) 0.1 th/mm3 (0.0-0.2); Baso % (Auto) 0.7 % (0.0-2.0); Eos # (Auto) 0.1 th/mm3 (0.0-0.4); Eos % (Auto) 1.1 % (0.0-4.0); Hematocrit 31.6 % (39.0-51.0); Hemoglobin 10.2 gm/dL (13.0-17.0); Lymph # (Auto) 2.1 th/mm3 (1.0-4.8); Lymph % (Auto) 17.9 % (9.0-44.0); Mean Corpuscular HGB Conc 32.4 % (32.0-36.0); Mean Corpuscular Hemoglobin 31.2 pg (27.0-34.0); Mean Corpuscular Volume 96.3 fL (80.0-100.0); Mean Platelet Volume 7.4 fL (7.0-11.0); Mono # (Auto) 2.1 th/mm3 (0.0-0.9); Mono % (Auto) 17.8 % (0.0-8.0); Neut # (Auto) 7.2 th/mm3 (1.8-7.7); Neut % (Auto) 62.5 % (16.0-70.0); Platelet Count 449 th/mm3 (150-450); Red Blood Count 3.28 mil/mm3 (4.50-5.90); Red Cell Distribution Width 15.9 % (11.6-17.2); White Blood Count 11.6 th/mm3 (4.0-11.0)
[2018-02-17 06:13] LABS: Calcium 8.4 mg/dL (8.5-10.1); Carbon Dioxide 26.4 meq/L (21.0-32.0); Potassium 4.1 meq/L (3.5-5.1)
--- NOTE | 2018-02-17 08:57 | P.PNOP ---
Subjective Interval history: POD 2 s/p ORIF left tibial plateau doing well. pain controlled. no new complaints. Physical Exam Vital signs: Vital Signs 02/16/18 09:11 02/16/18 12:00 02/16/18 12:02 Temperature 98.4 F Pulse Rate 101 H Respiratory Rate 18 20 18 Blood Pressure 105/64 Pulse Oximetry 96 02/16/18 12:32 02/16/18 16:00 02/16/18 17:05 Temperature 99.7 F H Pulse Rate 103 H Respiratory Rate 18 20 18 Blood Pressure 144/67 H Pulse Oximetry 96 02/16/18 17:35 02/16/18 20:00 02/17/18 00:00 Temperature 98.9 F 98.1 F Pulse Rate 106 H 103 H Respiratory Rate 18 17 18 Blood Pressure 143/79 H 116/65 Pulse Oximetry 94 L 93 L 02/17/18 04:00 02/17/18 08:00 Temperature 99.2 F 98.4 F Pulse Rate 100 H 103 H Respiratory Rate 18 20 Blood Pressure 127/59 L 132/61 Pulse Oximetry 96 97 Intake & Output 02/16/18 02/17/18 02/17/18 18:59 06:59 18:59 Intake Total 1430 / 1430 750 / 750 Output Total 1800 / 1800 1500 / 1500 Balance -370 / -370 -750 / -750 Weight 123.7 kg Intake: IV 350 / 350 50 / 50 Vancomycin Inj 1,000 MG In NS 250 / 250 Inj 250 ML @ 200 mls/hr IV.SIG Q12H ANJEL Rx#:[id number] Ancef 2 GM Premix Inj 2 gm In 100 / 100 50 / 50 50 ml @ 100 mls/hr IV.SIG Q8H ANJEL Rx#:[id number] Oral 1080 / 1080 700 / 700 Output: Urine 1800 / 1800 1500 / 1500 Other: Date of Last Bowel Movement 02/13/18 02/16/18 # Bowel Movements 1 Narrative: LLEE: dressings clean and dry. intact. +CKS. strong dorsiflexion. compartments soft - Urinary Catheter Management Straight Cath placed during this visit: yes, but has since been removed by the nurse Reason for continuing: Not indwelling catheter Insertion date: 01/31/18 Insertion time: 16:06 Removal date: 01/31/18 Removal time: 16:06 Indwelling Urethral Catheter Cath placed during this visit: yes, but has since been removed by the nurse Reason for continuing: Acute urinary retention Insertion date: 01/31/18 Insertion time: 16:52 Removal date: 02/03/18 Removal time: 10:50 Results - Labs CBC & Chem 7: 02/17/18 05:24 02/17/18 05:24 Laboratory Results - last 24 hr 02/17/18 02/17/18 05:24 05:24 WBC 11.6 H RBC 3.28 L Hgb 10.2 L Hct 31.6 L MCV 96.3 MCH 31.2 MCHC 32.4 RDW 15.9 Plt Count 449 MPV 7.4 Neut % (Auto) 62.5 Lymph % (Auto) 17.9 [place] % (Auto) 17.8 H Eos % (Auto) 1.1 Baso % (Auto) 0.7 Neut # (Auto) 7.2 Lymph # (Auto) 2.1 [place] # (Auto) 2.1 H Eos # (Auto) 0.1 Baso # (Auto) 0.1 WBC Differential . Differential Comment Auto diff final Sodium 139 Potassium 4.1 D Chloride 105 Carbon Dioxide 26.4 Anion Gap 8 BUN 15 Creatinine 1.01 Estimated GFR 79 L Random Glucose 105 D Calcium 8.4 L Assessment and Plan - Assessment and Plan Left tibial plateau fracture status post removal external fixation and open reduction internal fixation POD 2 Nonweightbearing left lower extremity. Elevation and ice Daily dressing changes beginning POD 2 Bacitracin to all abrasions No active leg lifts or quad sets. Passive range of motion of knee by physical therapy 0-90deg Case management for possible rehab placement due to noncompliance ortho clear for DC to rehab once arrangements made DVT prophylaxis f/u with Tramaine or SOFIYA in 2 weeks. Criptext Prescription Drug Monitoring Database has been queried and verified prior to prescribing the controlled substance. Acute pain exception. This patient has normal, predicted, physiological, and time limited response to an adverse mechanical stimulus associated with surgery, trauma, or acute illness as described in my notes. There is a lack of alternative treatment options other than to include the prescribed narcotic treatment for this condition.
[2018-02-17] MEDS: Calcium/Vitamin D 250/125 MG Tablet PO SCH ×2 (09:34→12:50)
[2018-02-17] MEDS: Isosorbide Mononitrate 30 MG ER 24HR Tablet (Imdur) PO SCH (09:35)
[2018-02-17] MEDS: Enoxaparin Inj 40 MG/0.4 ML Syringe SQ SCH (09:35)
[2018-02-17] MEDS: Divalproex 500 MG DR Tablet PO SCH (09:35)
[2018-02-17] MEDS: Famotidine 20 MG Tablet PO SCH (09:35)
--- NOTE | 2018-02-17 11:52 | P.PNFP ---
Subjective Interval history: Mr. Hargrove had no acute events overnight. Orthopedics has signed off on pt's discharge and case management has set up patient to go to [facility]. Patient is happy with this choice and is ready to go to rehab. Pain is well controlled and he has been working with PT. Patient's scripts have been put on his chart. Denies chest pains, shortness of breath, fever, chills, nausea, vomiting, diarrhea, abdominal pain. <Ben Perez III - 02/17/18 14:35> Results - Labs Result diagrams: 02/17/18 05:24 02/17/18 05:24 <Waldo Willis - 02/19/18 15:37> Abnormal lab results 02/17/18 02/17/18 Range/Units 05:24 05:24 WBC 11.6 H (4.0-11.0) th/mm3 RBC 3.28 L (4.50-5.90) mil/mm3 Hgb 10.2 L (13.0-17.0) gm/dL Hct 31.6 L (39.0-51.0) % [place] % (Auto) 17.8 H (0.0-8.0) % [place] # (Auto) 2.1 H (0.0-0.9) th/mm3 Estimated GFR 79 L (>89) mL/min Calcium 8.4 L (8.5-10.1) mg/dL Short CBC 02/17/18 Range/Units 05:24 WBC 11.6 H (4.0-11.0) th/mm3 Hgb 10.2 L (13.0-17.0) gm/dL Hct 31.6 L (39.0-51.0) % Plt Count 449 (150-450) th/mm3 BMP 02/17/18 05:24 Sodium 139 Potassium 4.1 D Chloride 105 Carbon Dioxide 26.4 BUN 15 Creatinine 1.01 Calcium 8.4 L <Ben Perez III - 02/17/18 11:52> - Imaging Knee CT 01/30/18 00:00 CONCLUSION: 1. Comminuted displaced proximal tibial fracture with lipohemarthrosis at the knee joint and hemorrhage within the marrow cavity of the proximal tibia. Ankle X-Ray 01/30/18 09:29 CONCLUSION: Negative 2 view exam. Femur X-Ray 02/11/18 17:44 CONCLUSION: Status post placement of external fixation device. Tibia/Fibula X-Ray 02/11/18 17:44 CONCLUSION: Interval placement of external fixation device. Knee X-Ray 02/15/18 00:00 CONCLUSION: Satisfactory postoperative appearance of the left knee status post ORIF. <Ben Perez III H - 02/17/18 14:35> Physical Exam Vital signs: Vital Signs 02/16/18 12:00 02/16/18 12:02 02/16/18 12:32 Temperature 98.4 F Pulse Rate 101 H Respiratory Rate 20 18 18 Blood Pressure 105/64 Pulse Oximetry 96 02/16/18 16:00 02/16/18 17:05 02/16/18 17:35 Temperature 99.7 F H Pulse Rate 103 H Respiratory Rate 20 18 18 Blood Pressure 144/67 H Pulse Oximetry 96 02/16/18 20:00 02/17/18 00:00 02/17/18 04:00 Temperature 98.9 F 98.1 F 99.2 F Pulse Rate 106 H 103 H 100 H Respiratory Rate 17 18 18 Blood Pressure 143/79 H 116/65 127/59 L Pulse Oximetry 94 L 93 L 96 02/17/18 08:00 02/17/18 09:47 Temperature 98.4 F Pulse Rate 103 H 101 H Respiratory Rate 20 Blood Pressure 132/61 Pulse Oximetry 97 Intake & Output 02/16/18 02/17/18 02/17/18 18:59 06:59 18:59 Intake Total 1430 / 1430 750 / 750 50 / 50 Output Total 1800 / 1800 1500 / 1500 Balance -370 / -370 -750 / -750 50 / 50 Weight 123.7 kg Intake: IV 350 / 350 50 / 50 50 / 50 Vancomycin Inj 1,000 MG In NS 250 / 250 Inj 250 ML @ 200 mls/hr IV.SIG Q12H ANJEL Rx#:[id number] Ancef 2 GM Premix Inj 2 gm In 100 / 100 50 / 50 50 / 50 50 ml @ 100 mls/hr IV.SIG Q8H ANJEL Rx#:[id number] Oral 1080 / 1080 700 / 700 Output: Urine 1800 / 1800 1500 / 1500 Other: Date of Last Bowel Movement 02/13/18 02/16/18 02/16/18 # Bowel Movements 1 <Ben Perez III 02/17/18 11:52> Narrative: GENERAL: 47 YO male appears his stated age lying in bed in NAD. SKIN: Warm and dry. No lesions or rash. HEAD: Normocephalic. Atraumatic. MMM. EYES: No scleral icterus. No injection or drainage. NECK: Supple, trachea midline. No JVD or lymphadenopathy. CARDIOVASCULAR: Regular rate and rhythm without murmurs, gallops, or rubs. RESPIRATORY: Breath sounds equal bilaterally. No accessory muscle use. GASTROINTESTINAL: Abdomen soft, non-tender, nondistended. +BS. MUSCULOSKELETAL: No cyanosis, or edema. LLE with dressings c/d/i. Swelling of left foot but pt has intact sensation and motor with strong dorsiflexion. Neurologic: AOx3. CN II-XII grossly intact. Normal speech. <Ben Perez III 02/17/18 14:35> - Urinary Catheter Management Indwelling Urethral Catheter Cath placed during this visit: no <Waldo Willis 02/19/18 15:37> yes, but has since been removed by the nurse <Ben Perez III 02/17/18 14:35> Reason for continuing: Acute urinary retention <Ben Perez III 02/17/18 11:52> Insertion date: 01/31/18 <Ben Perez III 02/17/18 11:52> Insertion time: 16:52 <Ben Perez III 02/17/18 11:52> Removal date: 02/03/18 <Ben Perez III 02/17/18 11:52> Removal time: 10:50 <Ben Perez III 02/17/18 11:52> Straight Cath placed during this visit: no <Waldo Willis - 02/19/18 15:37> yes, but has since been removed by the nurse <Ben Perez III 02/17/18 14:35> Reason for continuing: Not indwelling catheter <eBn Perez III 02/17/18 11:52> Insertion date: 01/31/18 <Ben Perez III 02/17/18 11:52> Insertion time: 16:06 <Ben Perez III - 02/17/18 11:52> Removal date: 01/31/18 <Ben Perez III - 02/17/18 11:52> Removal time: 16:06 <Ben Perez III - 02/17/18 11:52> Assessment and Plan - Assessment (1) Fracture of tibial plateau, closed Code(s): S82.143A - Displaced bicondylar fracture of unspecified tibia, initial encounter for closed fracture Status: Acute (2) Seizure disorder Code(s): G40.909 - Epilepsy, unspecified, not intractable, without status epilepticus Status: Chronic (3) Coronary artery disease Code(s): I25.10 - Atherosclerotic heart disease of [place] coronary artery without angina pectoris Status: Chronic (4) Hypertension Code(s): I10 - Essential (primary) hypertension Status: Chronic (5) Hyperlipidemia Code(s): E78.5 - Hyperlipidemia, unspecified Status: Chronic (6) Bipolar disorder Code(s): F31.9 - Bipolar disorder, unspecified Status: Acute (7) Nutrition, metabolism, and development symptoms Code(s): R63.8 - Other symptoms and signs concerning food and fluid intake Status: Acute (8) DVT prophylaxis Status: Acute <Waldo Willis - 02/19/18 15:37> (1) Fracture of tibial plateau, closed Code(s): S82.143A - Displaced bicondylar fracture of unspecified tibia, initial encounter for closed fracture Status: Acute Plan: Post op day #2 ORIF of left tibial plateau Pain medications optimized Tylenol 650 mg PO q4hr PRN pain scale 1-2 Oxycodone 5/325 mg q6hr PRN pain scale 3-5 [place] 10/325 mg q4hr PRN pain scale 6-10 Morphine 2 mg q8hr PRN breakthrough Gabapentin 800 mg q6h AVOID further pain medication Ancef 2g q8h completed this morning as per orthopedics Vancomycin 1g q12h x2 doses has completed as per orthopedics PT and OT consulted, recommend OT @ rehab and PT@ at rehab Orthopedics following: Patient had open reduction internal fixation left bicondylar tibial plateau, open reduction internal fixation left tibial shaft fracture, removal of external fixation on 02/15. Ice and elevation for swelling Encourage use of incentive spirometer, patient has refused CPAP (2) Seizure disorder Code(s): G40.909 - Epilepsy, unspecified, not intractable, without status epilepticus Status: Chronic Plan: Depakote 500 BID Ativan 0.5 mg TID (3) Coronary artery disease Code(s): I25.10 - Atherosclerotic heart disease of [place] coronary artery without angina pectoris Status: Chronic Plan: Continue Imdur, metroprolol and atorvastatin Lisinopril held due to SBP <110 (4) Hypertension Code(s): I10 - Essential (primary) hypertension Status: Chronic Plan: BP controlled, Home medication lisinopril 10 mg daily held (5) Hyperlipidemia Code(s): E78.5 - Hyperlipidemia, unspecified Status: Chronic Plan: Continue home atorvastatin (6) Bipolar disorder Code(s): F31.9 - Bipolar disorder, unspecified Status: Acute Plan: Con't Remeron, seroquel, lexapro,Mirtazapine 15 mg PO HS (7) Nutrition, metabolism, and development symptoms Code(s): R63.8 - Other symptoms and signs concerning food and fluid intake Status: Acute Plan: Fluids: none Electrolytes: none Diet: Diabetic Diet. GI prophy: Protonix (8) DVT prophylaxis Status: Acute Plan: DVT prophylaxis: Lovenox 40 mg subcu daily restarted 02/16 SCD and compression hose to non-operative leg Dispo: Pending completion of Ortho procedures; Rehab based on PT recs <Ben Perez III - 02/17/18 14:29> - Assessment and Plan sdw Jony Willis and Aaron <Ben Perez III - 02/17/18 14:35> Discharge Planning: Plan to discharge to [facility] when arrangements are complete, expected 02/17 <Ben Perez III - 02/17/18 14:35> - Attending Attestation See the residents documentation for details. I saw and evaluated the patient regarding the [place]re[place] portions of this evaluation and agree with the residents findings and plans as written. Parts of this note were created using [employer] voice recognition software program. While efforts were made to correct any mistakes made by this software, some mistakes, errors, and omissions may remain in the final note that were not caught when the note was originally created. Plan of care was discussed and agreed upon with the patient as specifically documented in the above note. An opportunity to ask questions with explanation was provided. Patient voiced understanding on all information reviewed and discussed. <Waldo Willis - 02/19/18 15:37>
== END 2018-02-17 15:36 ==
LOC: NEPE 09:03 → NEDA 11:39 → N06 18:13
PROVIDERS: ADMIT Family Medicine; ATTEND Family Medicine